=== PATIENT | male | born 1945 | race African-American/Black ===

== ENCOUNTER 2016-12-13 22:24 | Inpatient (IN) | payer MEDICARE, MEDICAID ==
[2016-12-13] MEDS ORDERED: NITROGLYCERIN/D5W 250 ML IV PRN (22:35)
[2016-12-13] MEDS ORDERED: FUROSEMIDE INJ/PF 40 MG/4 ML SDV IV ONE (22:36)
[2016-12-13] MEDS ORDERED: NITROGLYCERIN/D5W 50 MG/250 ML RTUINJ IV ONE (22:36)
--- NOTE | 2016-12-13 22:40 | ER Document Report ---
ED General - General Stated Complaint: ALTERED MENTAL STATUS Notes: Patient is a 71-year-old male who presents from a assisted with concerns of altered mental status. EMS states only that assisted contacted them for concerns the patient was not acting like his normal self. No additional history is provided. They state that they found his initial pulse oximetry reading to be 73% on room air. Patient does not normally require oxygen. Patient is nonverbal so no additional history can be obtained. TRAVEL OUTSIDE OF THE [place] IN LAST 30 DAYS: No - Related Data Allergies/Adverse Reactions: No Known Allergies Allergy (Verified 06/16/16 16:17) Past Medical History - General Information source: Patient Cannot obtain history due to: Dementia, Mentally challenged - Social History Smoking Status: Unknown if Ever Smoked Lives with: [facility] Family History: Reviewed & Not Pertinent - Past Medical History Cardiac Medical History: Reports: Hx Atrial Fibrillation, Hx Hypertension Denies: Hx Heart Attack Pulmonary Medical History: Reports: Hx Asthma, Hx COPD Denies: Hx Tuberculosis Neurological Medical History: Reports: Hx Cerebrovascular Accident - with left sided weakness. medications: Warfarin, Dilantin, Flomax, Hx Seizures Endocrine Medical History: Reports: Hx Diabetes Mellitus Type 2 Renal/ Medical History: Reports: Hx Benign Prostatic Hyperplasia GI Medical History: Denies: Hx Hepatitis, Hx Hiatal Hernia, Hx Ulcer Musculoskeltal Medical History: Reports Hx Arthritis, Reports Hx Musculoskeletal Deformity, Reports Hx Musculoskeletal Trauma Psychiatric Medical History: Denies: Hx Depression Infectious Medical History: Denies: Hx Hepatitis Past Surgical History: Reports: Hx Cholecystectomy, Hx Orthopedic Surgery - bilat Total Knee Replacement. Denies: Hx Open Heart Surgery, Hx Pacemaker - Immunizations Hx Diphtheria, Pertussis, Tetanus Vaccination: No Hx Pneumococcal Vaccination: 09/13/13 Review of Systems - Review of Systems -: Yes ROS unobtainable due to patient's medical condition Physical Exam - Vital signs Vitals: Resp 20 12/13/16 22:25 Interpretation: Hypertensive, Bradycardic, Hypoxic, Tachypneic Notes: PHYSICAL EXAMINATION: GENERAL: In moderate respiratory distress, somewhat lethargic HEAD: Atraumatic, normocephalic. EYES: Pupils equal round and reactive to light, extraocular movements intact, sclera anicteric, conjunctiva are normal. ENT: nares patent, oropharynx clear without exudates. Moderately dry mucous membranes. NECK: Normal range of motion, supple without lymphadenopathy LUNGS: Mild tachypnea with intercostal retractions. Scattered rales throughout. HEART: Regular bradycardia without murmurs ABDOMEN: Soft, nontender, normoactive bowel sounds. No guarding, no rebound. No masses appreciated. EXTREMITIES: Left-sided BKA. 3+ pitting edema in the right lower extremity NEUROLOGICAL: No focal neurological deficits. Moves all extremities spontaneously PSYCH: Does not talk SKIN: Warm, Dry, normal turgor, no rashes or lesions noted. Course - Re-evaluation Re-evalutation: 12/13/16 22:37 Patient presents with altered mental status, hypoxemia, in mild respiratory distress. He is nonverbal and history is as provided by EMS. At time of my assessment, patient has tachypnea with respiratory rate 25. Some mild intercostal retractions. Bedside ultrasound demonstrates B-lines in all lung fajardo using pulmonary ultrasound. A bedside cardiac echocardiogram demonstrates global myocardial wall hypertrophy and relatively diffuse dyskinesia but no effusion or tamponade. IVC is noted to be distended and without variance on respiration consistent with volume overload. Patient's blood pressure is notably elevated with his initial systolic blood pressure being 198. Presentation is overall most consistent with pulmonary edema with associated hypoxemia and altered mental status. Laboratories will be obtained, patient was placed on BiPAP to assist work of breathing and help reduce pulmonary edema. He hasn't started a nitroglycerin drip and IV Lasix 40 mg will be administered. Patient is critically ill at this time will require frequent reassessments. 12/14/16 00:25 Patient's work of breathing is overall much improved at this time on BiPAP. Continued to saturate 100% on 30% FiO2. Will transition off BiPAP at this time. Patient's blood pressures are controlled on 60 g of nitroglycerin per minute. Lasix has been given. Laboratory sent returned and show a markedly elevated potassium at 6.8. Patient did not have any EKG changes reflective of this change. A bolus of insulin and glucose will be given. Awaiting the remainder patient's laboratories. He will require admission. 12/14/16 02:53 Patient has been successfully transitioned to nasal cannula without difficulty. He has been admitted to Dr. Tapia - Vital Signs Vital signs: Temp Pulse Resp BP Pulse Ox 98.0 F 16 163/87 H 100 12/13/16 23:11 12/14/16 02:26 04/03/17 02:26 12/14/16 02:26 - Laboratory Result Diagrams: 12/13/16 23:04 12/13/16 23:04 Laboratory results interpreted by me: 12/13/16 12/13/16 12/13/16 23:04 23:04 23:04 RBC 2.94 L Hgb 9.4 L Hct 28.0 L RDW 14.6 H Sodium 145.2 H Potassium 6.8 H* Chloride 115 H Carbon Dioxide 20 L BUN 54 H Creatinine 2.17 H Est GFR ( Amer) 36 L Est GFR (Non-Af Amer) 30 L Glucose 116 H NT-Pro-B Natriuret Pep 4250 H Albumin 3.4 L Amylase Urine Protein Urine Blood Digoxin < 0.40 L 12/13/16 12/14/16 23:04 00:25 RBC Hgb Hct RDW Sodium Potassium Chloride Carbon Dioxide BUN Creatinine Est GFR ( Amer) Est GFR (Non-Af Amer) Glucose NT-Pro-B Natriuret Pep Albumin Amylase 235 H Urine Protein 100 H Urine Blood SMALL H Digoxin - Diagnostic Test Radiology reviewed: Image reviewed, Reports reviewed Radiology results interpreted by me: 12/13/16 23:55 Chest x-ray: Mild cardiomegaly and increased vascular prominence without overt pulmonary edema - EKG Interpretation by Me Additional EKG results interpreted by me: 12/13/16 23:55 Sinus bradycardia. Rate 57.Elevations or depressions. QTC is 390. Critical Care Note - Critical Care Note Total time excluding time spent on procedures (mins): 40 Comments: Critical care time spent obtaining history from patient or surrogate, discussions with consultants, development of treatment plan with patient or surrogate, evaluation of patient's response to treatment, examination of patient , ordering and performing treatments and interventions, ordering and review of laboratory studies, re-evaluation of patient's condition, ordering and review of radiographic studies and review of old charts Discharge - Discharge Clinical Impression: Hypoxemia, Respiratory distress, Hyperkalemia Altered mental status Qualifiers: Altered mental status type: disorientation Qualified Code(s): R41.0 - Disorientation, unspecified Disposition: ADMITTED INPATIENT Admitting Provider: [facility] Unit Admitted: [facility], [place]
[2016-12-13 23:35] LABS: ALANINE AMINOTRANSFERASE 42 U/L (21-72); ALBUMIN 3.4 g/dL (3.5-5.0); ALKALINE PHOSPHATASE 98 U/L (38-126); ANION GAP 10 (5-19); ASPARTATE AMINO TRANSFERASE 51 U/L (17-59); BILIRUBIN,DIRECT 0.2 mg/dL (0.0-0.4); BILIRUBIN,TOTAL 0.4 mg/dL (0.2-1.3); BLOOD UREA NITROGEN 54 mg/dL (7-20); CALCIUM 9.1 mg/dL (8.4-10.2); CARBON DIOXIDE 20 mmol/L (22-30); CHLORIDE 115 mmol/L (98-107); CREATININE RESULT 2.17 mg/dL (0.52-1.25); GLUCOSE 116 mg/dL (75-110); SODIUM 145.2 mmol/L (137-145); TOTAL PROTEIN 6.9 g/dL (6.3-8.2)
[2016-12-13 23:43] LABS: DIGOXIN < 0.40 ng/mL (0.8-2.0)
[2016-12-13 23:53] LABS: ABSOLUTE BASOPHILS # (AUTO) 0.1 10^3/uL (0.0-0.2); ABSOLUTE EOSINOPHILS # (AUTO) 0.2 10^3/uL (0.0-0.6); ABSOLUTE LYMPHOCYTES (AUTO) 2.6 10^3/uL (0.5-4.7); ABSOLUTE MONOCYTES (AUTO) 0.7 10^3/uL (0.1-1.4); BASOPHILS % (AUTO) 1.3 % (0-2); EOSINOPHILS % (AUTO) 2.4 % (0-6); HEMOGLOBIN 9.4 g/dL (13.5-17.0); HGB HCT DIFFERENCE 0.2; LYMPHOCYTES % (AUTO) 34.1 % (13-45); MEAN CORPUSCULAR HGB CONC 33.6 g/dL (32.0-36.0); MEAN CORPUSCULAR VOLUME 95 fl (80-97); MONOCYTES % (AUTO) 8.7 % (3-13); RED BLOOD COUNT 2.94 10^6/uL (4.35-5.55); RED CELL DISTRIBUTION WIDTH 14.6 % (11.5-14.0); SEGMENTED NEUTROPHILS % (AUTO) 53.5 % (42-78); WHITE BLOOD COUNT 7.5 10^3/uL (4.0-10.5)
[2016-12-13] MEDS ORDERED: IPRATROPIUM/ALBUTEROL 0.5-2.5 MG/3 ML AMPUL NEB ONE (23:56)
[2016-12-13 23:59] LABS: TROPONIN I 0.037 ng/mL
[2016-12-14] LABS: POTASSIUM 6.8 mmol/L (3.6-5.0)
[2016-12-14] MEDS ORDERED: DEXTROSE 50%-WATER 25 GM/50 ML DISP.SYRIN IV ONE ×2 (00:24→03:11)
[2016-12-14] MEDS ORDERED: INSULIN REG, HUMAN 100 UNIT/ML 3 ML VIAL (PYX) IV ONE (00:24)
[2016-12-14] MEDS ORDERED: LEVALBUTEROL HCL NEB 0.63 MG/3 ML AMPUL NEB PRN (00:43)
[2016-12-14] MEDS ORDERED: NORMAL SALINE 250 ML with FUROSEMIDE 250 MG IV PRN ×4 (00:48→20:26)
[2016-12-14 00:50] LABS: APPEARANCE,URINE CLEAR; BILIRUBIN,URINE NEGATIVE (NEGATIVE); GLUCOSE, URINE NEGATIVE (NEGATIVE); KETONES,URINE NEGATIVE (NEGATIVE); LEUKOCYTE ESTERASE,URINE NEGATIVE (NEGATIVE); NITRITE,URINE NEGATIVE (NEGATIVE); PROTEIN,URINE 100 mg/dL (NEGATIVE); URINE SPECIFIC GRAVITY 1.008; UROBILINOGEN,URINE NEGATIVE mg/dL (<2.0)
[2016-12-14] MEDS ORDERED: WARFARIN SODIUM 3 MG TABLET PO ONE (01:00)
[2016-12-14 01:37] LABS: VENOUS BLOOD BASE EXCESS -10.9 mmol/L; VENOUS BLOOD HCO3 16.4 mmol/L (20-32); VENOUS BLOOD PCO2 42.5 mmHg (35-63); VENOUS BLOOD PH 7.2 (7.30-7.42)
[2016-12-14 01:40] LABS: LIPASE 134.8 U/L (23-300); MAGNESIUM 2.2 mg/dL (1.6-2.3)
[2016-12-14 03:05] LABS: URINE BARBITURATES SCREEN NEGATIVE; URINE METHADONE SCREEN NEGATIVE; URINE OPIATES LOW NEGATIVE; URINE PHENCYCLIDINE SCREEN NEGATIVE
[2016-12-14] MEDS ORDERED: FUROSEMIDE INJ/PF 100 MG/10 ML SDV ONE ×2 (04:23→04:31)
[2016-12-14] MEDS ORDERED: WARFARIN SODIUM 3 MG TABLET ONE (04:53)
[2016-12-14] MEDS ORDERED: INFLUENZA ADLT QUAD (36MOS+) 2016-17 VAC 0.5 ML SYR IM PRN (06:39)
[2016-12-14 07:16] LABS: APPEARANCE,URINE CLEAR; BILIRUBIN,URINE NEGATIVE (NEGATIVE); GLUCOSE, URINE NEGATIVE (NEGATIVE); KETONES,URINE NEGATIVE (NEGATIVE); LEUKOCYTE ESTERASE,URINE NEGATIVE (NEGATIVE); NITRITE,URINE NEGATIVE (NEGATIVE); PROTEIN,URINE 100 mg/dL (NEGATIVE); URINE SPECIFIC GRAVITY 1.006; UROBILINOGEN,URINE NEGATIVE mg/dL (<2.0)
[2016-12-14 08:26] LABS: ABSOLUTE LYMPHOCYTES (AUTO) 1.7 10^3/uL (0.5-4.7); ABSOLUTE MONOCYTES (AUTO) 0.9 10^3/uL (0.1-1.4); ABSOLUTE NEUT (AUTO) 4.9 10^3/uL (1.7-8.2); BASOPHILS % (AUTO) 0.6 % (0-2); EOSINOPHILS % (AUTO) 0.2 % (0-6); HEMATOCRIT 26.5 % (37.9-51.0); HGB HCT DIFFERENCE 0.5; LYMPHOCYTES % (AUTO) 22.9 % (13-45); MEAN CORPUSCULAR HEMOGLOBIN 32.2 pg (27.0-33.4); MEAN CORPUSCULAR HGB CONC 34.1 g/dL (32.0-36.0); MEAN CORPUSCULAR VOLUME 95 fl (80-97); RED BLOOD COUNT 2.81 10^6/uL (4.35-5.55); RED CELL DISTRIBUTION WIDTH 14.6 % (11.5-14.0); SEGMENTED NEUTROPHILS % (AUTO) 64.3 % (42-78); WHITE BLOOD COUNT 7.6 10^3/uL (4.0-10.5)
[2016-12-14 08:41] LABS: ALANINE AMINOTRANSFERASE 44 U/L (21-72); ALBUMIN 3.1 g/dL (3.5-5.0); ALKALINE PHOSPHATASE 93 U/L (38-126); ANION GAP 10 (5-19); ASPARTATE AMINO TRANSFERASE 40 U/L (17-59); BILIRUBIN,DIRECT 0.1 mg/dL (0.0-0.4); BILIRUBIN,TOTAL 0.3 mg/dL (0.2-1.3); BLOOD UREA NITROGEN 47 mg/dL (7-20); CALCIUM 8.9 mg/dL (8.4-10.2); CARBON DIOXIDE 21 mmol/L (22-30); CHLORIDE 114 mmol/L (98-107); GLUCOSE 100 mg/dL (75-110); SODIUM 145.2 mmol/L (137-145); TOTAL PROTEIN 6.4 g/dL (6.3-8.2)
[2016-12-14 08:52] LABS: POTASSIUM 5.3 mmol/L (3.6-5.0)
--- NOTE | 2016-12-14 12:53 | EKG REPORT ---
SEVERITY:- ABNORMAL ECG - SINUS RHYTHM LOW VOLTAGE IN FRONTAL LEADS PROBABLE LVH WITH SECONDARY REPOL ABNRM ANTERIOR Q WAVES, POSSIBLY DUE TO LVH : Confirmed by: Michelle Ramos MD 14-Dec-2016 12:52:10
--- NOTE | 2016-12-14 19:08 | PDOC H&P ---
History of Present Illness Admission Date/PCP: 12/14/16 00:43 TOMY CROCKER MD History of Present Illness: GRAYSON BURCH is a 71 year old male, resident of the group home at [facility], the staff nurse at [facility] called me last night to indicate to me that patient was not responding to any stimuli including sternal rub, I was concerned about intracranial hemorrhage because patient is on warfarin because of history of atrial fibrillation I advised that patient should be transfer to the emergency room for evaluation when EMS arrived in the group home the pulse oximetry reading was 73% When he arrived in the emergency room he was lethargic and also in respiratory distress.He was also found to be nonverbal.The blood pressure recorded in the emergency room was 163/ 87, it was felt that patient was in pulmonary edema the breathing was supported with BiPAP machine,the blood work that was done showed sodium 145.2, potassium 6.8, creatinine 2.17 BUN of 54 and the BNP was 4250. CT head was done without contrast and it showed no midline shift areas of low density in the periventricular white matter most likely due to chronic microvascular ischemic change that was also a large area of encephalomalacia in the right MCA territory most consistent with a remote infarct there was no intracranial hemorrhage. Patient was stabilized in the emergency room. Patient presentation is consistent with flash pulmonary edema due to acute diastolic heart failure and he be treated with intravenous furosemide infusion to reduce preload. MRI brain was ordered to rule out any acute ischemic stroke. Past Medical History Cardiac Medical History: Reports: Atrial Fibrillation, Hypertension, Peripheral Vascular Disease Pulmonary Medical History: Reports: Asthma, Chronic Obstructive Pulmonary Disease (COPD) Neurological Medical History: Reports: Ischemic CVA - History of large right MCA territory infarct, Seizures Endocrine Medical History: Reports: Diabetes Mellitus Type 2 Musculoskeltal Medical History: Reports: Arthritis Psychiatric Medical History: Denies: Depression Hematology: Reports: Anemia Denies: Sickle Cell Disease Past Surgical History Past Surgical History: Reports: Cholecystectomy, Orthopedic Surgery - bilat Total Knee Replacement, left AKA Social History Lives with: [facility] Smoking Status: Former Smoker Frequency of Alcohol Use: None Hx Recreational Drug Use: No Drugs: None Hx Prescription Drug Abuse: No Family History Family History: Reviewed & Not Pertinent Parental Family History Reviewed: Yes Children Family History Reviewed: Yes Sibling(s) Family History Reviewed.: Yes Medication/Allergy Home Medications: Atorvastatin Calcium [Lipitor 20 mg Tablet] 20 mg PO QHS 12/14/16 Digoxin [Lanoxin 0.125 mg Tablet] 0.125 mg PO DAILY 12/14/16 Diltiazem HCl [Cardizem] 120 mg PO Q12 12/14/16 Docusate Sodium [Colace 100 mg Capsule] 100 mg PO DAILY 12/14/16 Finasteride [Proscar 5 mg Tablet] 5 mg PO DAILY 12/14/16 Metoprolol Tartrate [Lopressor 100 mg Tablet] 100 mg PO Q12 12/14/16 Phenytoin [Dilantin] 100 mg PO Q8 12/14/16 Polyethylene Glycol 3350 [Miralax Powder 17 gm/Packet] 1 packet PO DAILY Ranolazine [Ranexa] 500 mg PO Q12 12/14/16 Sennosides/Docusate 8.6-50 mg [Senna Plus Tablet] 2 tab PO DAILY 12/14/16 Warfarin Sodium [Coumadin 3 mg Tablet] 3 mg PO QHS 12/14/16 Allergies/Adverse Reactions: No Known Allergies Allergy (Verified 06/16/16 16:17) Review of Systems ROS unobtainable: Due to mental status Physical Exam Vital Signs: Temp Pulse Resp BP Pulse Ox 98.8 F 78 20 168/80 H 100 12/14/16 15:51 12/14/16 18:09 12/14/16 16:00 12/14/16 18:09 12/14/16 16:00 Intake & Output 12/13/16 12/14/16 12/15/16 06:59 06:59 06:59 Intake Total 187 Output Total 600 900 Balance -600 -713 Weight 63.8 kg General appearance: PRESENT: severe distress Eye exam: PRESENT: PERRLA Respiratory exam: PRESENT: decreased breath sounds Cardiovascular exam: PRESENT: +S1, +S2 GI/Abdominal exam: PRESENT: soft Extremities exam: PRESENT: left AKA Neurological exam: PRESENT: alert Results Laboratory Results: 12/14/16 08:13 12/14/16 08:13 12/14/16 12/14/16 12/14/16 01:15 01:30 06:28 WBC RBC Hgb Hct MCV MCH MCHC RDW Plt Count Seg Neutrophils % Lymphocytes % Monocytes % Eosinophils % Basophils % Absolute Neutrophils Absolute Lymphocytes Absolute Monocytes Absolute Eosinophils Absolute Basophils VBG pH 7.20 L VBG pCO2 42.5 VBG HCO3 16.4 L VBG Base Excess -10.9 Sodium Potassium Chloride Carbon Dioxide Anion Gap BUN Creatinine Est GFR ( Amer) Est GFR (Non-Af Amer) Glucose Calcium Total Bilirubin AST ALT Alkaline Phosphatase Ammonia < 8.7 L Total Protein Albumin Urine Color STRAW Urine Appearance CLEAR Urine pH 5.0 Ur Specific Colp 1.006 Urine Protein 100 H Urine Glucose (UA) NEGATIVE Urine Ketones NEGATIVE Urine Blood SMALL H Urine Nitrite NEGATIVE Ur Leukocyte Esterase NEGATIVE Urine WBC (Auto) 0 Urine RBC (Auto) 2 12/14/16 12/14/16 08:13 08:13 WBC 7.6 RBC 2.81 L Hgb 9.0 L Hct 26.5 L MCV 95 MCH 32.2 MCHC 34.1 RDW 14.6 H Plt Count 202 Seg Neutrophils % 64.3 Lymphocytes % 22.9 Monocytes % 12.0 Eosinophils % 0.2 Basophils % 0.6 Absolute Neutrophils 4.9 Absolute Lymphocytes 1.7 Absolute Monocytes 0.9 Absolute Eosinophils 0.0 Absolute Basophils 0.0 VBG pH VBG pCO2 VBG HCO3 VBG Base Excess Sodium 145.2 H Potassium 5.3 H D Chloride 114 H Carbon Dioxide 21 L Anion Gap 10 BUN 47 H Creatinine 2.00 H Est GFR ( Amer) 40 L Est GFR (Non-Af Amer) 33 L Glucose 100 Calcium 8.9 Total Bilirubin 0.3 AST 40 ALT 44 Alkaline Phosphatase 93 Ammonia Total Protein 6.4 Albumin 3.1 L Urine Color Urine Appearance Urine pH Ur Specific Colp Urine Protein Urine Glucose (UA) Urine Ketones Urine Blood Urine Nitrite Ur Leukocyte Esterase Urine WBC (Auto) Urine RBC (Auto) 12/14/16 12/14/16 12/14/16 01:15 01:15 08:13 Creatine Kinase 92 94 Troponin I 0.036 12/14/16 12/14/16 12/14/16 08:13 14:30 14:30 Creatine Kinase 95 Troponin I 0.048 0.043 Impressions: Chest X-Ray 12/13/16 22:34 IMPRESSION: NO ACUTE RADIOGRAPHIC FINDING IN THE CHEST. Head CT 12/14/16 00:00 IMPRESSION: Motion artifact. No obvious acute intracranial hemorrhage or acute territorial infarct. Remote right MCA infarct. Chronic changes of atrophy and microvascular ischemia. Assessment & Plan - Diagnosis (1) Acute hypoxemic respiratory failure Is this a current diagnosis for this admission?: YesPlan: Patient probably of flash pulmonary edema due to acute diastolic heart failure, he was treated with furosemide in the emergency room on will continue furosemide infusion, 2D echo showed grade 2 diastolic dysfunction of left ventricle (2) Hyperkalemia Is this a current diagnosis for this admission?: Yes (3) History of CVA (cerebrovascular accident) Is this a current diagnosis for this admission?: Yes (4) Respiratory distress Is this a current diagnosis for this admission?: Yes (5) Seizure disorder Is this a current diagnosis for this admission?: Yes (6) BPH (benign prostatic hyperplasia) Is this a current diagnosis for this admission?: Yes (7) COPD (chronic obstructive pulmonary disease) Qualifiers: COPD type: unspecified COPD Qualified Code(s): J44.9 - Chronic obstructive pulmonary disease, unspecified Is this a current diagnosis for this admission?: Yes (8) Acute diastolic heart failure Is this a current diagnosis for this admission?: YesPlan: He presented with congestive heart failure with preserved ejection fraction of left ventricle, this is consistent with diastolic dysfunction of left ventricle , he be treated with intravenous furosemide infusion (9) Acute kidney injury Is this a current diagnosis for this admission?: YesPlan: Patient of acute kidney injury with associated hyperkalemia
[2016-12-14] MEDS: PHARMACY COMMUNICATION ORDER MC SCH (20:38)
--- NOTE | 2016-12-14 21:26 | XCELERA REPORT ---
[address] [address] Transthoracic Echocardiogram Report Name: GRAYSON BURCH Age: 71 yrs Gender: Male : 1945 Patient Status: Inpatient Patient Location: 3W\S\320\S\A Study Date: 12/14/2016 09:51 AM Height: 69 in Weight: 139 lb BSA: 1.8 m2 Procedure: A complete two-dimensional transthoracic echocardiogram was performed (2D, M-mode, spectral and color flow Doppler). The study was technically difficult with many images being suboptimal in quality. Reason For Study: chf Ordering Physician: TOMY CROCKER Performed By: Emma Valdivia Interpretation Summary The left ventricular ejection fraction is normal. Doppler measurements suggest pseudonormalized left ventricular relaxation, which is associated with grade II/IV or mild to moderate diastolic dysfunction There is mild concentric left ventricular hypertrophy. The left ventricle is grossly normal size. Wall motion cannot be accurately commented on, but no definite regional wall motion abnormalities noted. The right ventricular systolic function is normal. The left atrial size is normal. The right atrium is normal in size There is a trace amount of mitral regurgitation There is no mitral valve stenosis. There is a trace amount of aortic regurgitation There is no aortic valve stenosis There is a trace to mild amount of tricuspid regurgitation There is mild pulmonary hypertension by echo Right ventricular systolic pressure is estimated to be elevated at 30- 40mmHg. The aortic root is not well visualized but is probably normal size. The inferior vena cava was not well visualized There is no pericardial effusion. MMode/2D Measurements \T\ Calculations RVDd: 2.2 cm LVIDd: 5.0 cm FS: 37.6 % Ao root diam: 3.2 cm IVSd: 1.1 cm LVIDs: 3.1 cm EDV(Teich): 117.0 ml LVPWd: 1.1 cm ESV(Teich): 38.1 ml Ao root area: 8.1 cm2 EF(Teich): 67.4 % LA dimension: 3.5 cm Doppler Measurements \T\ Calculations MV E max octavio: MV P1/2t max octavio: Ao V2 max: LV V1 max P.2 cm/sec 60.7 cm/sec 171.7 cm/sec 5.0 mmHg MV A max octavio: MV P1/2t: 91.2 msec Ao max PG: LV V1 max: 70.1 cm/sec 11.8 mmHg 112.0 cm/sec MV E/A: 0.87 MVA(P1/2t): 2.4 cm2 MV dec slope: 195.0 cm/sec2 MV dec time: 0.31 sec PA V2 max: TR max octavio: 122.4 cm/sec 279.2 cm/sec PA max PG: TR max P.2 mmHg 6.0 mmHg Left Ventricle The left ventricle is grossly normal size. There is mild concentric left ventricular hypertrophy. The left ventricular ejection fraction is normal. Doppler measurements suggest pseudonormalized left ventricular relaxation, which is associated with grade II/IV or mild to moderate diastolic dysfunction. Wall motion cannot be accurately commented on, but no definite regional wall motion abnormalities noted. Right Ventricle The right ventricle is grossly normal size. There is normal right ventricular wall thickness. The right ventricular systolic function is normal. Atria The right atrium is normal in size. The left atrial size is normal. Interarterial septum not well visualized and not well dopplered. Cannot comment on ASD/PFO presence. Mitral Valve The mitral valve leaflets are sclerotic, but show no functional abnormalities. There is no mitral valve stenosis. There is a trace amount of mitral regurgitation. Aortic Valve The aortic valve is grossly normal. There is no aortic valve stenosis. There is a trace amount of aortic regurgitation. Tricuspid Valve The tricuspid valve is not well visualized, but is grossly normal. There is no tricuspid stenosis. There is a trace to mild amount of tricuspid regurgitation. There is mild pulmonary hypertension by echo. Right ventricular systolic pressure is estimated to be elevated at 30-40mmHg. Pulmonic Valve The pulmonic valve is not well visualized. Great Vessels The aortic root is not well visualized but is probably normal size. The inferior vena cava was not well visualized. Effusions There is no pericardial effusion. : TOMY CROCKER > Brian Rodriguez
[2016-12-14] MEDS: WARFARIN SODIUM 3 MG TABLET PO SCH (21:29)
[2016-12-15 04:05] LABS: ABSOLUTE BASOPHILS # (AUTO) 0.1 10^3/uL (0.0-0.2); ABSOLUTE EOSINOPHILS # (AUTO) 0.1 10^3/uL (0.0-0.6); ABSOLUTE MONOCYTES (AUTO) 0.8 10^3/uL (0.1-1.4); ABSOLUTE NEUT (AUTO) 4.3 10^3/uL (1.7-8.2); BASOPHILS % (AUTO) 0.7 % (0-2); EOSINOPHILS % (AUTO) 1.2 % (0-6); HEMOGLOBIN 9.5 g/dL (13.5-17.0); HGB HCT DIFFERENCE 0.5; LYMPHOCYTES % (AUTO) 27.3 % (13-45); MEAN CORPUSCULAR HEMOGLOBIN 31.8 pg (27.0-33.4); MEAN CORPUSCULAR HGB CONC 33.9 g/dL (32.0-36.0); MEAN CORPUSCULAR VOLUME 94 fl (80-97); MONOCYTES % (AUTO) 11.7 % (3-13); RED BLOOD COUNT 2.99 10^6/uL (4.35-5.55); SEGMENTED NEUTROPHILS % (AUTO) 59.1 % (42-78); WHITE BLOOD COUNT 7.2 10^3/uL (4.0-10.5)
[2016-12-15 04:08] LABS: PROTHROMBIN TIME 16.4 SEC (11.4-15.4)
[2016-12-15 04:15] LABS: ANION GAP 11 (5-19); BLOOD UREA NITROGEN 48 mg/dL (7-20); CARBON DIOXIDE 22 mmol/L (22-30); CHLORIDE 113 mmol/L (98-107); CHOLESTEROL 178.46 mg/dL (0-200); CREATININE RESULT 1.87 mg/dL (0.52-1.25); Direct HDL 57 mg/dL (>40); GLUCOSE 96 mg/dL (75-110); POTASSIUM 5.3 mmol/L (3.6-5.0); SODIUM 145.7 mmol/L (137-145); TRIGLYCERIDES 82 mg/dL (<150)
[2016-12-15 04:26] LABS: CREATINE KINASE MB 2.26 ng/mL (<4.55); DIRECT LDL 65 mg/dL (<100); TROPONIN I 0.056 ng/mL
[2016-12-15 10:28] LABS: CREATINE KINASE MB 2.45 ng/mL (<4.55); TROPONIN I 0.058 ng/mL
--- NOTE | 2016-12-15 13:13 | EKG REPORT ---
SEVERITY:- ABNORMAL ECG - ATRIAL FLUTTER/FIBRILLATION, A-RATE 231 LOW VOLTAGE IN FRONTAL LEADS CONSIDER ANTEROSEPTAL INFARCT NONSPECIFIC T ABNORMALITIES, LATERAL LEADS : Confirmed by: Michelle Ramos MD 15-Dec-2016 13:12:43
[2016-12-15] MEDS ORDERED: PHENYTOIN SODIUM EXTENDED 100 MG CAPSULE PO ONE (14:30)
[2016-12-15] MEDS ORDERED: METOPROLOL TARTRATE 100 MG TABLET PO ONE (14:30)
[2016-12-15] MEDS ORDERED: DILTIAZEM HCL 120 MG CAP.SR.24H PO ONE (14:30)
[2016-12-15] MEDS ORDERED: DIGOXIN 0.125 MG TABLET PO ONE (14:30)
[2016-12-15] MEDS: PHENYTOIN SODIUM EXTENDED 100 MG CAPSULE PO SCH ×2 (14:35→21:31)
[2016-12-15 16:26] LABS: CREATINE KINASE MB 2.34 ng/mL (<4.55); TROPONIN I 0.049 ng/mL
[2016-12-15] MEDS: PHARMACY COMMUNICATION ORDER MC SCH (20:05)
--- NOTE | 2016-12-15 20:05 | PDOC PROGRESS REPORT ---
Subjective Progress Note for:: 12/15/16 Subjective:: Patient was seen by the bedside, is more awake alert and responsive Physical Exam Vital Signs: Temp Pulse Resp BP Pulse Ox 99.1 F 96 20 131/69 H 100 12/15/16 15:31 12/15/16 15:31 12/15/16 15:31 12/15/16 15:31 12/15/16 15:31 Intake & Output 12/14/16 12/15/16 12/16/16 06:59 06:59 06:59 Intake Total 561 367 Output Total 600 9321 600 Balance -600 -1814 -233 Weight 63.8 kg 74.8 kg General appearance: PRESENT: no acute distress Eye exam: PRESENT: PERRLA Respiratory exam: PRESENT: clear to auscultation kimberly Cardiovascular exam: PRESENT: +S1, +S2 GI/Abdominal exam: PRESENT: soft Neurological exam: PRESENT: alert Results Laboratory Results: 12/15/16 03:56 12/15/16 03:56 12/15/16 12/15/16 03:56 03:56 WBC 7.2 RBC 2.99 L Hgb 9.5 L Hct 28.0 L MCV 94 MCH 31.8 MCHC 33.9 RDW 14.0 Plt Count 203 Seg Neutrophils % 59.1 Lymphocytes % 27.3 Monocytes % 11.7 Eosinophils % 1.2 Basophils % 0.7 Absolute Neutrophils 4.3 Absolute Lymphocytes 2.0 Absolute Monocytes 0.8 Absolute Eosinophils 0.1 Absolute Basophils 0.1 Sodium 145.7 H Potassium 5.3 H Chloride 113 H Carbon Dioxide 22 Anion Gap 11 BUN 48 H Creatinine 1.87 H Est GFR ( Amer) 43 L Est GFR (Non-Af Amer) 36 L Glucose 96 Calcium 9.0 Triglycerides 82 Cholesterol 178.46 LDL Cholesterol Direct 65 VLDL Cholesterol 16.0 HDL Cholesterol 57 12/14/16 07:02 Nasophary (Mrsa Only) MRSA Surveillance Culture - Final NO MRSA RECOVERED 12/14/16 12/14/16 12/14/16 01:15 01:15 08:13 Creatine Kinase 92 94 CK-MB (CK-2) Troponin I 0.036 12/14/16 12/14/16 12/14/16 08:13 14:30 14:30 Creatine Kinase 95 CK-MB (CK-2) Troponin I 0.048 0.043 12/15/16 12/15/16 12/15/16 03:56 03:56 09:48 Creatine Kinase 101 104 CK-MB (CK-2) 2.26 Troponin I 0.056 12/15/16 12/15/16 12/15/16 09:48 15:45 15:45 Creatine Kinase 121 CK-MB (CK-2) 2.45 2.34 Troponin I 0.058 0.049 Impressions: Chest X-Ray 12/13/16 22:34 IMPRESSION: NO ACUTE RADIOGRAPHIC FINDING IN THE CHEST. Head CT 12/14/16 00:00 IMPRESSION: Motion artifact. No obvious acute intracranial hemorrhage or acute territorial infarct. Remote right MCA infarct. Chronic changes of atrophy and microvascular ischemia. Head MRI 12/14/16 00:00 IMPRESSION: Negative for acute or sub-acute infarction. Old right frontal infarct. Moderate chronic small vessel ischemic changes. . Renal Ultrasound 12/14/16 00:00 IMPRESSION: CHRONIC MEDICAL RENAL DISEASE. NO HYDRONEPHROSIS. Assessment & Plan - Diagnosis (1) Acute hypoxemic respiratory failure Is this a current diagnosis for this admission?: Yes (2) Hyperkalemia Is this a current diagnosis for this admission?: Yes (3) History of CVA (cerebrovascular accident) Is this a current diagnosis for this admission?: Yes (4) Respiratory distress Is this a current diagnosis for this admission?: Yes (5) Seizure disorder Is this a current diagnosis for this admission?: Yes (6) BPH (benign prostatic hyperplasia) Is this a current diagnosis for this admission?: Yes (7) COPD (chronic obstructive pulmonary disease) Qualifiers: COPD type: unspecified COPD Qualified Code(s): J44.9 - Chronic obstructive pulmonary disease, unspecified Is this a current diagnosis for this admission?: Yes (8) Acute diastolic heart failure Is this a current diagnosis for this admission?: Yes (9) Acute kidney injury Is this a current diagnosis for this admission?: Yes
[2016-12-15] MEDS: DILTIAZEM HCL 120 MG CAP.SR.24H PO SCH (21:31)
[2016-12-15] MEDS: WARFARIN SODIUM 3 MG TABLET PO SCH (21:31)
[2016-12-15] MEDS: METOPROLOL TARTRATE 100 MG TABLET PO SCH (21:31)
[2016-12-16 05:06] LABS: ABSOLUTE BASOPHILS # (AUTO) 0.1 10^3/uL (0.0-0.2); ABSOLUTE EOSINOPHILS # (AUTO) 0.1 10^3/uL (0.0-0.6); ABSOLUTE LYMPHOCYTES (AUTO) 3.3 10^3/uL (0.5-4.7); ABSOLUTE MONOCYTES (AUTO) 1.1 10^3/uL (0.1-1.4); BASOPHILS % (AUTO) 0.9 % (0-2); HEMATOCRIT 30.4 % (37.9-51.0); HEMOGLOBIN 10.2 g/dL (13.5-17.0); HGB HCT DIFFERENCE 0.2; LYMPHOCYTES % (AUTO) 38.1 % (13-45); MEAN CORPUSCULAR HEMOGLOBIN 31.7 pg (27.0-33.4); MEAN CORPUSCULAR HGB CONC 33.7 g/dL (32.0-36.0); MEAN CORPUSCULAR VOLUME 94 fl (80-97); MONOCYTES % (AUTO) 13.2 % (3-13); RED BLOOD COUNT 3.23 10^6/uL (4.35-5.55); RED CELL DISTRIBUTION WIDTH 14.1 % (11.5-14.0); SEGMENTED NEUTROPHILS % (AUTO) 46.8 % (42-78); WHITE BLOOD COUNT 8.6 10^3/uL (4.0-10.5)
[2016-12-16 05:12] LABS: PROTHROMBIN TIME 18.8 SEC (11.4-15.4)
[2016-12-16 05:29] LABS: ANION GAP 13 (5-19); BLOOD UREA NITROGEN 59 mg/dL (7-20); CARBON DIOXIDE 19 mmol/L (22-30); CHLORIDE 113 mmol/L (98-107); CREATININE RESULT 2.08 mg/dL (0.52-1.25); GLUCOSE 92 mg/dL (75-110); POTASSIUM 5.9 mmol/L (3.6-5.0); SODIUM 144.5 mmol/L (137-145)
[2016-12-16] MEDS: PHENYTOIN SODIUM EXTENDED 100 MG CAPSULE PO SCH ×3 (05:36→21:31)
[2016-12-16 08:45] LABS: APPEARANCE,URINE SLIGHTLY-CLOUDY; BILIRUBIN,URINE NEGATIVE (NEGATIVE); GLUCOSE, URINE NEGATIVE (NEGATIVE); KETONES,URINE NEGATIVE (NEGATIVE); LEUKOCYTE ESTERASE,URINE MODERATE (NEGATIVE); NITRITE,URINE NEGATIVE (NEGATIVE); PROTEIN,URINE 100 mg/dL (NEGATIVE); URINE SPECIFIC GRAVITY 1.012; UROBILINOGEN,URINE NEGATIVE mg/dL (<2.0)
[2016-12-16] MEDS: DIGOXIN 0.125 MG TABLET PO SCH (11:02)
[2016-12-16] MEDS: METOPROLOL TARTRATE 100 MG TABLET PO SCH ×2 (11:03→21:31)
[2016-12-16] MEDS: DILTIAZEM HCL 120 MG CAP.SR.24H PO SCH ×2 (11:05→21:31)
--- NOTE | 2016-12-16 17:36 | PDOC PROGRESS REPORT ---
Subjective Progress Note for:: 12/16/16 Subjective:: The potassium is high today, Kayexalate is prescribed for patient, he is doing well otherwise Physical Exam Vital Signs: Temp Pulse Resp BP Pulse Ox 98.8 F 33 L 16 108/64 100 12/16/16 15:38 12/16/16 15:38 12/16/16 15:38 12/16/16 15:38 12/16/16 15:38 Intake & Output 12/15/16 12/16/16 12/17/16 06:59 06:59 06:59 Intake Total 561 885 24 Output Total 2375 1200 Balance -6885 -846 24 Weight 74.8 kg 62 kg General appearance: PRESENT: no acute distress Eye exam: PRESENT: PERRLA Respiratory exam: PRESENT: clear to auscultation kimberly Cardiovascular exam: PRESENT: +S1, +S2 Neurological exam: PRESENT: alert Results Laboratory Results: 12/16/16 04:40 12/16/16 04:40 12/16/16 12/16/16 12/16/16 04:40 04:40 06:27 WBC 8.6 RBC 3.23 L Hgb 10.2 L Hct 30.4 L MCV 94 MCH 31.7 MCHC 33.7 RDW 14.1 H Plt Count 222 Seg Neutrophils % 46.8 Lymphocytes % 38.1 Monocytes % 13.2 H Eosinophils % 1.0 Basophils % 0.9 Absolute Neutrophils 4.0 Absolute Lymphocytes 3.3 Absolute Monocytes 1.1 Absolute Eosinophils 0.1 Absolute Basophils 0.1 Sodium 144.5 Potassium 5.9 H Chloride 113 H Carbon Dioxide 19 L Anion Gap 13 BUN 59 H Creatinine 2.08 H Est GFR ( Amer) 38 L Est GFR (Non-Af Amer) 31 L Glucose 92 Calcium 9.0 Urine Color YELLOW Urine Appearance SLIGHTLY-CLOUDY Urine pH 6.0 Ur Specific [place] 1.012 Urine Protein 100 H Urine Glucose (UA) NEGATIVE Urine Ketones NEGATIVE Urine Blood MODERATE H Urine Nitrite NEGATIVE Ur Leukocyte Esterase MODERATE H Urine WBC (Auto) 30 Urine RBC (Auto) 14 12/14/16 12/14/16 12/14/16 01:15 01:15 08:13 Creatine Kinase 92 94 CK-MB (CK-2) Troponin I 0.036 12/14/16 12/14/16 12/14/16 08:13 14:30 14:30 Creatine Kinase 95 CK-MB (CK-2) Troponin I 0.048 0.043 12/15/16 12/15/16 12/15/16 03:56 03:56 09:48 Creatine Kinase 101 104 CK-MB (CK-2) 2.26 Troponin I 0.056 12/15/16 12/15/16 12/15/16 09:48 15:45 15:45 Creatine Kinase 121 CK-MB (CK-2) 2.45 2.34 Troponin I 0.058 0.049 Impressions: Chest X-Ray 12/13/16 22:34 IMPRESSION: NO ACUTE RADIOGRAPHIC FINDING IN THE CHEST. Head CT 12/14/16 00:00 IMPRESSION: Motion artifact. No obvious acute intracranial hemorrhage or acute territorial infarct. Remote right MCA infarct. Chronic changes of atrophy and microvascular ischemia. Head MRI 12/14/16 00:00 IMPRESSION: Negative for acute or sub-acute infarction. Old right frontal infarct. Moderate chronic small vessel ischemic changes. . Renal Ultrasound 12/14/16 00:00 IMPRESSION: CHRONIC MEDICAL RENAL DISEASE. NO HYDRONEPHROSIS. Assessment & Plan - Diagnosis (1) Acute hypoxemic respiratory failure Is this a current diagnosis for this admission?: Yes (2) Hyperkalemia Is this a current diagnosis for this admission?: Yes (3) History of CVA (cerebrovascular accident) Is this a current diagnosis for this admission?: Yes (4) Respiratory distress Is this a current diagnosis for this admission?: Yes (5) Seizure disorder Is this a current diagnosis for this admission?: Yes (6) BPH (benign prostatic hyperplasia) Is this a current diagnosis for this admission?: Yes (7) COPD (chronic obstructive pulmonary disease) Qualifiers: COPD type: unspecified COPD Qualified Code(s): J44.9 - Chronic obstructive pulmonary disease, unspecified Is this a current diagnosis for this admission?: Yes (8) Acute diastolic heart failure Is this a current diagnosis for this admission?: Yes (9) Acute kidney injury Is this a current diagnosis for this admission?: Yes
[2016-12-16] MEDS: SODIUM POLYSTYRENE SULFONATE 15 GM/60 ML PO SCH ×2 (17:40→23:52)
[2016-12-16] MEDS: PHARMACY COMMUNICATION ORDER MC SCH (17:41)
[2016-12-16] MEDS: WARFARIN SODIUM 3 MG TABLET PO SCH (21:31)
[2016-12-17 05:17] LABS: ABSOLUTE EOSINOPHILS # (AUTO) 0.1 10^3/uL (0.0-0.6); ABSOLUTE LYMPHOCYTES (AUTO) 2.9 10^3/uL (0.5-4.7); ABSOLUTE NEUT (AUTO) 4.5 10^3/uL (1.7-8.2); BASOPHILS % (AUTO) 0.6 % (0-2); EOSINOPHILS % (AUTO) 1.2 % (0-6); HEMATOCRIT 31.6 % (37.9-51.0); HEMOGLOBIN 10.7 g/dL (13.5-17.0); HGB HCT DIFFERENCE 0.5; LYMPHOCYTES % (AUTO) 33.3 % (13-45); MEAN CORPUSCULAR HEMOGLOBIN 31.9 pg (27.0-33.4); MEAN CORPUSCULAR HGB CONC 33.7 g/dL (32.0-36.0); MEAN CORPUSCULAR VOLUME 95 fl (80-97); MONOCYTES % (AUTO) 12.2 % (3-13); RED BLOOD COUNT 3.34 10^6/uL (4.35-5.55); RED CELL DISTRIBUTION WIDTH 14.2 % (11.5-14.0); SEGMENTED NEUTROPHILS % (AUTO) 52.7 % (42-78); WHITE BLOOD COUNT 8.6 10^3/uL (4.0-10.5)
[2016-12-17 05:22] LABS: PROTHROMBIN TIME 17.8 SEC (11.4-15.4)
[2016-12-17] MEDS: PHENYTOIN SODIUM EXTENDED 100 MG CAPSULE PO SCH ×2 (05:31→14:29)
[2016-12-17] MEDS: SODIUM POLYSTYRENE SULFONATE 15 GM/60 ML PO SCH ×2 (05:31→11:36)
[2016-12-17 05:46] LABS: ANION GAP 15 (5-19); BLOOD UREA NITROGEN 68 mg/dL (7-20); CALCIUM 8.9 mg/dL (8.4-10.2); CARBON DIOXIDE 19 mmol/L (22-30); CHLORIDE 112 mmol/L (98-107); CREATININE RESULT 2.14 mg/dL (0.52-1.25); GLUCOSE 122 mg/dL (75-110); POTASSIUM 4.9 mmol/L (3.6-5.0); SODIUM 146.3 mmol/L (137-145)
[2016-12-17] MEDS: DIGOXIN 0.125 MG TABLET PO SCH (09:35)
[2016-12-17] MEDS: DILTIAZEM HCL 120 MG CAP.SR.24H PO SCH (09:36)
[2016-12-17] MEDS: ACETAMINOPHEN 325 MG TABLET PO PRN ×2 (09:36→20:05)
[2016-12-17] MEDS: METOPROLOL TARTRATE 100 MG TABLET PO SCH (09:37)
--- NOTE | 2016-12-17 17:00 | PDOC TRANSFER SUMMARY ---
General - Admit/Disc Date/PCP Admission Date/Primary Care Provider: 12/14/16 00:43 TOMY CROCKER MD Discharge Date: 12/17/16 - Discharge Diagnosis (1) Acute hypoxemic respiratory failure Is this a current diagnosis for this admission?: Yes (2) Hyperkalemia Is this a current diagnosis for this admission?: Yes (3) History of CVA (cerebrovascular accident) Is this a current diagnosis for this admission?: Yes (4) Respiratory distress Is this a current diagnosis for this admission?: Yes (5) Seizure disorder Is this a current diagnosis for this admission?: Yes (6) BPH (benign prostatic hyperplasia) Is this a current diagnosis for this admission?: Yes (7) COPD (chronic obstructive pulmonary disease) Is this a current diagnosis for this admission?: Yes (8) Acute diastolic heart failure Is this a current diagnosis for this admission?: Yes (9) Acute kidney injury Is this a current diagnosis for this admission?: Yes - Additional Information Home Medications: Atorvastatin Calcium [Lipitor 20 mg Tablet] 20 mg PO QHS 12/14/16 Diltiazem HCl [Cardizem] 120 mg PO Q12 12/14/16 Docusate Sodium [Colace 100 mg Capsule] 100 mg PO DAILY 12/14/16 Finasteride [Proscar 5 mg Tablet] 5 mg PO DAILY 12/14/16 Phenytoin [Dilantin] 100 mg PO Q8 12/14/16 Polyethylene Glycol 3350 [Miralax Powder 17 gm/Packet] 1 packet PO DAILY Ranolazine [Ranexa] 500 mg PO Q12 12/14/16 Sennosides/Docusate 8.6-50 mg [Senna Plus Tablet] 2 tab PO DAILY 12/14/16 Acetaminophen [Tylenol 325 mg Tablet] 650 mg PO Q4HP PRN #0 tablet 12/17/16 Apixaban [Eliquis 2.5 mg Tablet] 2.5 mg PO Q12 #0 tablet 12/17/16 Diltiazem HCl [Cardizem Cd 120 mg Capsule] 120 mg PO Q12 #0 cap.sr.24h 12/17/16 Levalbuterol HCl [Xopenex Neb 0.63 mg/3 ml Ampul] 0.63 mg NEB RTQ4HP PRN #0 vial.neb 12/17/16 Phenytoin Sodium Extended [Dilantin 100 mg Capsule.er] 100 mg PO Q8 #0 capsule 12/17/16 History of Present Illness Admission Date/PCP: 12/14/16 00:43 TOMY CROCKER MD History of Present Illness: GRAYSON BURCH is a 71 year old male, resident of the half-way at [facility], the staff nurse at [facility] called me last night to indicate to me that patient was not responding to any stimuli including sternal rub, I was concerned about intracranial hemorrhage because patient is on warfarin because of history of atrial fibrillation I advised that patient should be transfer to the emergency room for evaluation when EMS arrived in the half-way the pulse oximetry reading was 73% When he arrived in the emergency room he was lethargic and also in respiratory distress.He was also found to be nonverbal.The blood pressure recorded in the emergency room was 163/ 87, it was felt that patient was in pulmonary edema the breathing was supported with BiPAP machine,the blood work that was done showed sodium 145.2, potassium 6.8, creatinine 2.17 BUN of 54 and the BNP was 4250. CT head was done without contrast and it showed no midline shift areas of low density in the periventricular white matter most likely due to chronic microvascular ischemic change that was also a large area of encephalomalacia in the right MCA territory most consistent with a remote infarct there was no intracranial hemorrhage. Patient was stabilized in the emergency room. Patient presentation is consistent with flash pulmonary edema due to acute diastolic heart failure and he be treated with intravenous furosemide infusion to reduce preload. MRI brain was ordered to rule out any acute ischemic stroke. Hospital Course Hospital Course: Patient was admitted because of acute respiratory distress due to acute diastolic heart failure, there was associated acute kidney injury with hyperkalemia. He was treated with Lasix drip on he diuresis very well, when he presented to the emergency room ER altered mental status because of a history of CVA CT scan of the head and MRI of the head was done and did not show any acute infarction but initial large area of encephalomalacia in the right MCA territory most consistent with a remote infarct, there was no intracranial hemorrhage. A 2D echo was done on this admission showed preserved ejection fraction of left ventricle with grade 2 diastolic dysfunction of the left ventricle. He regained full consciousness and medication was adjusted, he has history of atrial fibrillation he takes warfarin, anticoagulation, he was taken off warfarin and started on Eliquis. He has presently optimize inpatient care, the plan is to transfer any to nursing note for continuity of care, rehabilitation. Physical Exam Vital Signs: Temp Pulse Resp BP Pulse Ox 98.1 F 86 20 109/62 93 12/17/16 15:24 12/17/16 15:24 12/17/16 15:24 12/17/16 15:24 12/17/16 15:24 Intake & Output 12/16/16 12/17/16 12/18/16 06:59 06:59 06:59 Intake Total 885 607 60 Output Total 1200 250 Balance -315 357 60 Weight 62 kg 60.6 kg General appearance: PRESENT: no acute distress Eye exam: PRESENT: PERRLA Respiratory exam: PRESENT: clear to auscultation kimberly Cardiovascular exam: PRESENT: +S1, +S2 GI/Abdominal exam: PRESENT: soft Neurological exam: PRESENT: alert Results Laboratory Results: 12/17/16 05:03 12/17/16 05:03 12/16/16 12/17/16 12/17/16 20:25 05:03 05:03 WBC 8.6 RBC 3.34 L Hgb 10.7 L Hct 31.6 L MCV 95 MCH 31.9 MCHC 33.7 RDW 14.2 H Plt Count 235 Seg Neutrophils % 52.7 Lymphocytes % 33.3 Monocytes % 12.2 Eosinophils % 1.2 Basophils % 0.6 Absolute Neutrophils 4.5 Absolute Lymphocytes 2.9 Absolute Monocytes 1.0 Absolute Eosinophils 0.1 Absolute Basophils 0.0 Sodium 146.3 H Potassium 4.9 Chloride 112 H Carbon Dioxide 19 L Anion Gap 15 BUN 68 H Creatinine 2.14 H Est GFR ( Amer) 37 L Est GFR (Non-Af Amer) 30 L Glucose 122 H Calcium 8.9 Stool Occult Blood NEGATIVE 12/14/16 12/14/16 12/14/16 01:15 01:15 08:13 Creatine Kinase 92 94 CK-MB (CK-2) Troponin I 0.036 12/14/16 12/14/16 12/14/16 08:13 14:30 14:30 Creatine Kinase 95 CK-MB (CK-2) Troponin I 0.048 0.043 12/15/16 12/15/16 12/15/16 03:56 03:56 09:48 Creatine Kinase 101 104 CK-MB (CK-2) 2.26 Troponin I 0.056 12/15/16 12/15/16 12/15/16 09:48 15:45 15:45 Creatine Kinase 121 CK-MB (CK-2) 2.45 2.34 Troponin I 0.058 0.049 Impressions: Chest X-Ray 12/13/16 22:34 IMPRESSION: NO ACUTE RADIOGRAPHIC FINDING IN THE CHEST. Head CT 12/14/16 00:00 IMPRESSION: Motion artifact. No obvious acute intracranial hemorrhage or acute territorial infarct. Remote right MCA infarct. Chronic changes of atrophy and microvascular ischemia. Head MRI 12/14/16 00:00 IMPRESSION: Negative for acute or sub-acute infarction. Old right frontal infarct. Moderate chronic small vessel ischemic changes. . Renal Ultrasound 12/14/16 00:00 IMPRESSION: CHRONIC MEDICAL RENAL DISEASE. NO HYDRONEPHROSIS.
[2016-12-17] MEDS: PHARMACY COMMUNICATION ORDER MC SCH (18:29)
[2016-12-17 20:32] VITALS: BP 108/63
== END 2016-12-17 20:15 | DRG 291 ==
LOC: ER 22:24 → EH 12-14 00:43 → UNDOADMIN 12-14 00:47 → 3W 12-14 05:15
PROVIDERS: ADMIT Internal Medicine; ATTEND Internal Medicine
PROC: 5A09457 Assistance with Respiratory Ventilation, 24-96 Consecutive Hours, Continuous Positive Airway Pressure (ICD-10-PCS; principal; 2016-12-13)
DX: I50.31 Acute diastolic (congestive) heart failure (principal); J96.01 Acute respiratory failure with hypoxia; N17.9 Acute kidney failure, unspecified; I69.354 Hemiplegia and hemiparesis following cerebral infarction affecting left non-dominant side; E87.5 Hyperkalemia; G40.909 Epilepsy, unspecified, not intractable, without status epilepticus; N40.0 Benign prostatic hyperplasia without lower urinary tract symptoms; J44.9 Chronic obstructive pulmonary disease, unspecified; I48.91 Unspecified atrial fibrillation; E11.51 Type 2 diabetes mellitus with diabetic peripheral angiopathy without gangrene; D64.9 Anemia, unspecified; M19.90 Unspecified osteoarthritis, unspecified site; J45.909 Unspecified asthma, uncomplicated; F03.90 Unspecified dementia, unspecified severity, without behavioral disturbance, psychotic disturbance, mood disturbance, and anxiety; R00.1 Bradycardia, unspecified; Z78.1 Physical restraint status; Z79.899 Other long term (current) drug therapy; Z79.01 Long term (current) use of anticoagulants; Z90.49 Acquired absence of other specified parts of digestive tract; Z96.651 Presence of right artificial knee joint; Z89.612 Acquired absence of left leg above knee; Z87.891 Personal history of nicotine dependence
CPT/HCPCS: 36415; 70450; 70551; 71010; 76770; 80048; 80053; 80061; 80162; 80185; 80307; 81001; 82140; 82150; 82272; 82550; 82553; 82803; 82962; 83036; 83605; 83690; 83735; 83880; 84439; 84443; 84484; 85025; 85610; 87040; 87086; 93005; 93010; 93306; 94640; 94660; 96365; 96366; 96375; 99291; J1815; J1940; J3490; J7050; J7614; J7620

== ENCOUNTER 2016-12-30 21:56 | Emergency (ER) | payer MEDICARE, MEDICAID ==
--- NOTE | 2016-12-30 22:01 | ER Document Report ---
ED Seizure - General Chief Complaint: Seizure Stated Complaint: SEIZURE Notes: The patient is a 71-year-old male, past medical history seizures, A. fib, cognitive delay, left AKA, presents after he had a 30 second generalized tonic- clonic seizure that resolved without any intervention. He takes Dilantin for his seizure disorder. Patient had a postictal. When EMS arrived, but he is back to baseline on arrival to the emergency room. He denies headache, head injury, nausea, vomiting, leg swelling, chest pain, fevers or neck stiffness. - Related Data Allergies/Adverse Reactions: No Known Allergies Allergy (Verified 06/16/16 16:17) Past Medical History - General Information source: Patient, Emergency Med Personnel - Social History Smoking Status: Unknown if Ever Smoked Family History: Reviewed & Not Pertinent - Past Medical History Cardiac Medical History: Reports: Hx Atrial Fibrillation, Hx Hypertension, Hx Peripheral Vascular Disease Denies: Hx Heart Attack Pulmonary Medical History: Reports: Hx Asthma, Hx COPD Denies: Hx Tuberculosis Neurological Medical History: Reports: Hx Cerebrovascular Accident - with left sided weakness. medications: Warfarin, Dilantin, Flomax, Hx Seizures Endocrine Medical History: Reports: Hx Diabetes Mellitus Type 2 Renal/ Medical History: Reports: Hx Benign Prostatic Hyperplasia GI Medical History: Denies: Hx Hepatitis, Hx Hiatal Hernia, Hx Ulcer Musculoskeltal Medical History: Reports Hx Arthritis, Reports Hx Musculoskeletal Deformity, Reports Hx Musculoskeletal Trauma Psychiatric Medical History: Denies: Hx Depression Infectious Medical History: Denies: Hx Hepatitis Past Surgical History: Reports: Hx Cholecystectomy, Hx Orthopedic Surgery - bilat Total Knee Replacement, left AKA. Denies: Hx Open Heart Surgery, Hx Pacemaker - Immunizations Hx Diphtheria, Pertussis, Tetanus Vaccination: No Hx Pneumococcal Vaccination: 09/13/13 Review of Systems - Review of Systems Notes: REVIEW OF SYSTEMS: CONSTITUTIONAL: -fevers, -chills EENT: -eye pain, -difficulty swallowing, -nasal congestion CARDIOVASCULAR:-chest pain, -syncope. RESPIRATORY: -cough, -SOB GASTROINTESTINAL: -abdominal pain, - nausea, -vomiting, -diarrhea GENITOURINARY: -dysuria, -hematuria MUSCULOSKELETAL: -back pain, -neck pain SKIN: -rash or skin lesions. HEMATOLOGIC: -easy bruising or bleeding. LYMPHATIC: -swollen, enlarged glands. NEUROLOGICAL: -altered mental status or loss of consciousness, -headache, + seizure PSYCHIATRIC: -anxiety, -depression. ALL OTHER SYSTEMS REVIEWED AND NEGATIVE. Physical Exam - Vital signs Vitals: Temp Pulse Resp BP Pulse Ox 98.9 F 74 19 137/89 H 100 12/30/16 22:03 12/30/16 22:03 12/30/16 22:03 12/30/16 22:03 12/30/16 22:03 - Notes Notes: PHYSICAL EXAMINATION: GENERAL: Well-appearing, well-nourished and in no acute distress. HEAD: Atraumatic, normocephalic. EYES: Pupils equal round and reactive to light, extraocular movements intact, sclera anicteric, conjunctiva are normal. ENT: nares patent, oropharynx clear without exudates. Moist mucous membranes. NECK: Normal range of motion, supple without lymphadenopathy LUNGS: Breath sounds clear to auscultation bilaterally and equal. No wheezes rales or rhonchi. HEART: Irregularly irregular rhythm ABDOMEN: Soft, nontender, normoactive bowel sounds. No guarding, no rebound. No masses appreciated. EXTREMITIES: Left AKA, normal range of motion, no pitting or edema. No cyanosis. NEUROLOGICAL: Cranial nerves grossly intact. Normal speech. SKIN: Warm, Dry, normal turgor, no rashes or lesions noted. Course - Re-evaluation Re-evalutation: Patient with known seizure disorder on Dilantin and had a breakthrough seizure. Will check Dilantin level. Accu-Chek 132 by EMS. 12/30/16 22:50 Pt's dilantin level is undetectable. His oral loading dose would be 450 mg once. Will provide this and instruct patient and mcc to take his 100 mg every 8 hours as directed to help prevent future seizures. - Vital Signs Vital signs: Temp Pulse Resp BP Pulse Ox 98.9 F 74 19 137/89 H 100 12/30/16 22:03 12/30/16 22:03 12/30/16 22:03 12/30/16 22:03 12/30/16 22:03 - Laboratory Laboratory results interpreted by me: 12/30/16 22:21 Phenytoin < 3.0 L Discharge - Discharge Clinical Impression: Seizure disorder Condition: Stable Disposition: REHAB FACILITY Additional Instructions: Your Dilantin level was undetectable tonight and you were given a loading dose. Take your Dilantin 100 mg every 8 hours as prescribed and follow-up with your primary care physician and neurologist. Seizure, Known Epileptic You have had a seizure. Seizures may "break through" in an epileptic due to stress of infection or injury, a change in blood chemistry, or drug and alcohol use. Another common cause is failure to take medication as prescribed. Your doctor has evaluated your situation for the likely cause of this seizure. It is important that you follow his advice concerning any medication changes and follow-up care. Further testing of anti-seizure medication levels in your blood may be necessary. If you have a non [place] driver's license, it's important that you DO NOT DRIVE until given permission by your physician. This seizure must be reported to the non [place] driver 's license bureau. Call the doctor or return if seizures recur, or if new or unusual symptoms arise -- such as severe headache, confusion, excessive sleepiness, local weakness or numbness, neck stiffness, or fever. Referrals: KAREN RAMOS MD [ACTIVE STAFF] - Follow up as needed
[2016-12-30] MEDS ORDERED: PHENYTOIN SODIUM EXTENDED 100 MG CAPSULE PO ONE (22:50)
[2016-12-31 04:01] VITALS: BP 134/88
== END 2016-12-31 04:01 ==
LOC: ER 21:56
DX: G40.909 Epilepsy, unspecified, not intractable, without status epilepticus (principal); I48.91 Unspecified atrial fibrillation; Z79.899 Other long term (current) drug therapy
CPT/HCPCS: 99285; 36415; 80185; A9270

== ENCOUNTER 2017-02-04 03:56 | Emergency (ER) | payer MEDICARE, MEDICAID ==
[2017-02-04 07:18] LABS: ABSOLUTE EOSINOPHILS # (AUTO) 0.1 10^3/uL (0.0-0.6); ABSOLUTE LYMPHOCYTES (AUTO) 1.9 10^3/uL (0.5-4.7); ABSOLUTE MONOCYTES (AUTO) 0.5 10^3/uL (0.1-1.4); ABSOLUTE NEUT (AUTO) 2.8 10^3/uL (1.7-8.2); BASOPHILS % (AUTO) 0.9 % (0-2); EOSINOPHILS % (AUTO) 1.9 % (0-6); HEMATOCRIT 32.5 % (37.9-51.0); HEMOGLOBIN 10.6 g/dL (13.5-17.0); HGB HCT DIFFERENCE -0.7; LYMPHOCYTES % (AUTO) 35.5 % (13-45); MEAN CORPUSCULAR HEMOGLOBIN 31.5 pg (27.0-33.4); MEAN CORPUSCULAR HGB CONC 32.5 g/dL (32.0-36.0); MEAN CORPUSCULAR VOLUME 97 fl (80-97); RED BLOOD COUNT 3.36 10^6/uL (4.35-5.55); SEGMENTED NEUTROPHILS % (AUTO) 52.7 % (42-78); WHITE BLOOD COUNT 5.3 10^3/uL (4.0-10.5)
[2017-02-04 07:22] LABS: ALANINE AMINOTRANSFERASE 30 U/L (21-72); ALBUMIN 3.4 g/dL (3.5-5.0); ALKALINE PHOSPHATASE 109 U/L (38-126); ANION GAP 13 (5-19); ASPARTATE AMINO TRANSFERASE 24 U/L (17-59); BILIRUBIN,DIRECT 0.2 mg/dL (0.0-0.4); BILIRUBIN,TOTAL 0.2 mg/dL (0.2-1.3); BLOOD UREA NITROGEN 43 mg/dL (7-20); CALCIUM 9.2 mg/dL (8.4-10.2); CARBON DIOXIDE 17 mmol/L (22-30); CHLORIDE 114 mmol/L (98-107); CREATINE KINASE 74 U/L (55-170); CREATININE RESULT 1.96 mg/dL (0.52-1.25); GLUCOSE 86 mg/dL (75-110); POTASSIUM 5.2 mmol/L (3.6-5.0); SODIUM 144.2 mmol/L (137-145); TOTAL PROTEIN 7.3 g/dL (6.3-8.2)
--- NOTE | 2017-02-04 07:28 | RADIOLOGY REPORT (SQ) ---
EXAM DESCRIPTION: SHOULDER RIGHT 2 OR MORE VIEWS COMPLETED DATE/TIME: 02/04/2017 7:12 am REASON FOR STUDY: post seizure pain COMPARISON: None. NUMBER OF VIEWS: Three views. TECHNIQUE: Internal rotation, external rotation, and AP images acquired of the right shoulder. LIMITATIONS: None. FINDINGS: MINERALIZATION: Mild demineralization. BONES: No acute fracture or dislocation. No worrisome bone lesions. Mild osteoarthritis includes th e acromioclavicular joint and acromial humeral joint with possible subacromial impingement. JOINTS: No dislocation. VISUALIZED LUNGS AND RIBS: No pneumothorax. No rib fracture. SOFT TISSUES: No radiopaque foreign body. OTHER: Atherosclerosis. Moderate disc desiccation. Chronic rib deformities at approximately the rig ht 6th, 8th, and 9th levels as compared with chest radiograph, 12/13/2016. IMPRESSION: NO RADIOGRAPHIC EVIDENCE OF ACUTE INJURY. TECHNICAL DOCUMENTATION: JOB ID: [id number] [employer]- All Rights Reserved
[2017-02-04 07:31] LABS: CREATINE KINASE MB 1.66 ng/mL (<4.55); TROPONIN I 0.028 ng/mL
--- NOTE | 2017-02-04 07:31 | RADIOLOGY REPORT (SQ) ---
EXAM DESCRIPTION: ANKLE RIGHT COMPLETE COMPLETED DATE/TIME: 02/04/2017 7:12 am REASON FOR STUDY: post seizure pain COMPARISON: None. NUMBER OF VIEWS: Three views. TECHNIQUE: AP, lateral, and oblique radiographic images acquired of the right ankle. LIMITATIONS: None. FINDINGS: MINERALIZATION: Normal. BONES: No acute fracture or dislocation. No worrisome bone lesions. Mild osteoarthritis of the medi al malleolus and small plantar faucial enthesophyte. Atherosclerosis. JOINTS: No effusions. SOFT TISSUES: No soft tissue swelling. No foreign body. OTHER: No other significant finding. IMPRESSION: NO RADIOGRAPHIC EVIDENCE OF ACUTE INJURY. TECHNICAL DOCUMENTATION: JOB ID: [id number] [email or web address]- All Rights Reserved
--- NOTE | 2017-02-04 07:36 | ER Document Report ---
ED General - General Chief Complaint: Fall Injury Stated Complaint: FALL Time Seen by Provider: 02/04/17 06:05 Mode of Arrival: Ambulatory Information source: Patient Notes: 71-year-old male history of seizure disorder eye care facility was found on the floor by caregivers. Patient denied any complaints except for right shoulder pain. Patient denies any fevers or chills denies any nausea or vomiting. Patient does admit to mild right ankle pain. TRAVEL OUTSIDE OF THE [place] IN LAST 30 DAYS: No - HPI Onset: Just prior to arrival Onset/Duration: Sudden Quality of pain: Achy Severity: Mild Pain Level: 1 Associated symptoms: Body/muscle aches, Weakness Exacerbated by: Movement Relieved by: Denies Similar symptoms previously: Yes Recently seen / treated by doctor: Yes - Related Data Allergies/Adverse Reactions: No Known Allergies Allergy (Verified 06/16/16 16:17) Past Medical History - Social History Smoking Status: Never Smoker Cigarette use (# per day): No Chew tobacco use (# tins/day): No Smoking Education Provided: No Family History: Reviewed & Not Pertinent - Past Medical History Cardiac Medical History: Reports: Hx Atrial Fibrillation, Hx Hypertension, Hx Peripheral Vascular Disease Denies: Hx Heart Attack Pulmonary Medical History: Reports: Hx Asthma, Hx COPD Denies: Hx Tuberculosis Neurological Medical History: Reports: Hx Cerebrovascular Accident - with left sided weakness. medications: Warfarin, Dilantin, Flomax, Hx Seizures Endocrine Medical History: Reports: Hx Diabetes Mellitus Type 2 Renal/ Medical History: Reports: Hx Benign Prostatic Hyperplasia. Denies: Hx Peritoneal Dialysis GI Medical History: Denies: Hx Hepatitis, Hx Hiatal Hernia, Hx Ulcer Musculoskeltal Medical History: Reports Hx Arthritis, Reports Hx Musculoskeletal Deformity, Reports Hx Musculoskeletal Trauma Psychiatric Medical History: Denies: Hx Depression Infectious Medical History: Denies: Hx Hepatitis Past Surgical History: Reports: Hx Cholecystectomy, Hx Orthopedic Surgery - bilat Total Knee Replacement, left AKA. Denies: Hx Open Heart Surgery, Hx Pacemaker - Immunizations Hx Diphtheria, Pertussis, Tetanus Vaccination: No Hx Pneumococcal Vaccination: 09/13/13 Review of Systems - Review of Systems Notes: PHYSICAL EXAMINATION: GENERAL: Well-appearing, well-nourished and in no acute distress. HEAD: Atraumatic, normocephalic. EYES: Pupils equal round and reactive to light, extraocular movements intact, sclera anicteric, conjunctiva are normal. ENT: Nares patent, oropharynx clear without exudates. Moist mucous membranes. NECK: Normal range of motion, supple without lymphadenopathy or and placed LUNGS: Breath sounds clear to auscultation bilaterally and equal. No wheezes rales or rhonchi. HEART: Regular rate and rhythm without murmurs ABDOMEN: Soft, nontender, nondistended abdomen. No guarding, no rebound. No masses appreciated. Musculoskeletal:mild right shoulder , ankle and knee pain left AKA NEUROLOGICAL: Cranial nerves grossly intact. Normal speech, normal gait. Normal sensory, motor exams PSYCH: Normal mood, normal affect. SKIN: Skin abrasion over right orbital Physical Exam - Vital signs Vitals: Resp 10 L 02/04/17 04:06 Course - Re-evaluation Re-evalutation: 02/04/17 07:36 imaging pending at this time, ckd noted 02/04/17 09:53 CT imaging noted no significant abnormality, patient's lab work appears at his baseline. He has no other complaints at this time I will discharge him home with very close return precautions After performing a Medical Screening Examination, I estimate there is LOW risk for INTRACRANIAL HEMORRHAGE, UNSTABLE SPINE FRACTURE, CENTRAL CORD SYNDROME, CAUDA EQUINA, THORACIC AORTIC DISSECTION, PNEUMOTHORAX, PERFORATED BOWEL, RUPTURED ABDOMINAL AORTIC ANEURYSM, ACUTE TENDON RUPTURE, COMPARTMENT SYNDROME, or OPEN FRACTURE, thus I consider the discharge disposition reasonable. Also, there is no evidence or peritonitis, sepsis, or toxicity. I have reevaluated this patient multiple times and no significant life threatening changes are noted. The patient and I have discussed the diagnosis and risks, and we agree with discharging home to follow-up with their primary doctor with the understanding that symptoms and presentations can change. We also discussed returning to the Emergency Department immediately if new or worsening symptoms occur. We have discussed the symptoms which are most concerning (e.g., bloody stool, fever, changing or worsening pain, vomiting) that necessitate immediate return. - Vital Signs Vital signs: Temp Pulse Resp BP Pulse Ox 97.7 F 75 18 178/104 H 96 02/04/17 04:13 02/04/17 04:13 02/04/17 09:02 02/04/17 09:02 02/04/17 04:13 - Laboratory Result Diagrams: 02/04/17 06:25 02/04/17 06:25 Laboratory results interpreted by me: 02/04/17 02/04/17 06:25 06:25 RBC 3.36 L Hgb 10.6 L Hct 32.5 L Potassium 5.2 H Chloride 114 H Carbon Dioxide 17 L BUN 43 H Creatinine 1.96 H Est GFR ( Amer) 41 L Est GFR (Non-Af Amer) 34 L Albumin 3.4 L - Diagnostic Test Radiology reviewed: Image reviewed, Reports reviewed - No acute abnormalities Discharge - Discharge Clinical Impression: Skin abrasion Fall Qualifiers: Encounter type: initial encounter Qualified Code(s): W19.XXXA - Unspecified fall, initial encounter CKD (chronic kidney disease) Qualifiers: Chronic kidney disease stage: stage 3 (moderate) Qualified Code(s): N18.3 - Chronic kidney disease, stage 3 (moderate) Condition: Stable Disposition: HOME, SELF-CARE Instructions: Contusion ([facility]) Additional Instructions: Follow up with your physician tomorrow for further care or return to the ED IMMEDIATELY if symptoms worsen or new concerns occur. If you cannot afford to follow up with your primary care physician a list of low cost clinics have been provided at the end of your discharge papers as well.
--- NOTE | 2017-02-04 07:52 | EKG REPORT ---
SEVERITY:- ABNORMAL ECG - ATRIAL FIBRILLATION LOW VOLTAGE IN FRONTAL LEADS NONSPECIFIC T ABNORMALITIES, DIFFUSE LEADS : Confirmed by: Jae De L aGarza MD 04-Feb-2017 07:51:56
--- NOTE | 2017-02-04 08:12 | RADIOLOGY REPORT (SQ) ---
EXAM DESCRIPTION: CT HEAD WITHOUT COMPLETED DATE/TIME: 02/04/2017 7:56 am REASON FOR STUDY: post seizure pain COMPARISON: 12/14/2016. MRI, 12/14/2016. TECHNIQUE: Axial images acquired through the brain without intravenous contrast. Images reviewed wi th bone, brain and subdural windows. Images stored on PACS. All CT scanners at this facility use dose modulation, iterative reconstruction, and/or weight based d osing when appropriate to reduce radiation dose to as low as reasonably achievable (ALARA). [facility]: Dose Right [facility]: CareDose [facility]: Dose Right [facility]: Teradose 4D [facility]: TrenStar RADIATION DOSE: 64.61 mGy. LIMITATIONS: None. FINDINGS: VENTRICLES: Normal size and contour. CEREBRUM: Moderate extensive cytotoxic edema/encephalomalacia right parietal lobe consistent right MC A infarct and a small cytotoxic edema/ encephalomalacia of the anterior left parietal lobe, somewhat evolved compared with prior exams. Atherosclerosis. White matter microangiopathy. CEREBELLUM: No masses. No hemorrhage. No alteration of density. No evidence for acute infarction. EXTRAAXIAL SPACES: No fluid collections. No masses. ORBITS AND GLOBE: No intra- or extraconal masses. Normal contour of globe without masses. CALVARIUM: No fracture. PARANASAL SINUSES: No fluid or mucosal thickening. SOFT TISSUES: No mass or hematoma. OTHER: No other significant finding. IMPRESSION: No acute findings. Extensive right MCA infarct. TECHNICAL DOCUMENTATION: JOB ID: [id number] Quality ID # [id number]: Final reports with documentation of one or more dose reduction techniques (e.g., Au tomated exposure control, adjustment of the mA and/or kV according to patient size, use of iterative reconstruction technique) 2010 [employer]- All Rights Reserved
--- NOTE | 2017-02-04 08:39 | RADIOLOGY REPORT (SQ) ---
EXAM DESCRIPTION: CT CERVICAL SPINE WITHOUT COMPLETED DATE/TIME: 02/04/2017 7:55 am REASON FOR STUDY: post seizure pain COMPARISON: None. TECHNIQUE: Axial images acquired through the cervical spine without intravenous contrast. Images re viewed with lung, soft tissue and bone windows. Reconstructed coronal and sagittal MPR images review ed. Images stored on PACS. All CT scanners at this facility use dose modulation, iterative reconstruction, and/or weight based d osing when appropriate to reduce radiation dose to as low as reasonably achievable (ALARA). [facility]: Dose Right [facility]: CareDose [facility]: Dose Right [facility]: Teradose 4D [facility]: [employer] RADIATION DOSE: 15.21 mGy. LIMITATIONS: None. FINDINGS: ALIGNMENT: Anatomic. MINERALIZATION: Normal. VERTEBRAL BODIES: No fractures or dislocation. DISCS: Multilevel disc space narrowing with osteophytes most notably in the mid and upper cervical sp ine. FACETS, LATERAL MASSES, POSTERIOR ELEMENTS: Facet arthropathy. No fractures. No dislocation. No ac margarita findings. HARDWARE: None in the spine. VISUALIZED RIBS: No fractures. LUNG APICES AND SOFT TISSUES: No significant or acute findings. OTHER: No other significant finding. IMPRESSION: CHRONIC DEGENERATIVE CHANGES. NO ACUTE FINDINGS. TECHNICAL DOCUMENTATION: JOB ID: [id number] Quality ID # [id number]: Final reports with documentation of one or more dose reduction techniques (e.g., Au tomated exposure control, adjustment of the mA and/or kV according to patient size, use of iterative reconstruction technique) 2010 [employer]- All Rights Reserved
[2017-02-04 12:05] VITALS: BP 151/82
== END 2017-02-04 12:14 | disposition home or self-care (01) ==
LOC: ER 03:56
DX: S00.211A Abrasion of right eyelid and periocular area, initial encounter (principal); M25.511 Pain in right shoulder; M25.571 Pain in right ankle and joints of right foot; M25.561 Pain in right knee; W19.XXXA Unspecified fall, initial encounter; R53.1 Weakness; E11.22 Type 2 diabetes mellitus with diabetic chronic kidney disease; I12.9 Hypertensive chronic kidney disease with stage 1 through stage 4 chronic kidney disease, or unspecified chronic kidney disease; N18.3 Chronic kidney disease, stage 3 (moderate); J44.9 Chronic obstructive pulmonary disease, unspecified; Z89.612 Acquired absence of left leg above knee
CPT/HCPCS: 36415; 70450; 72125; 80053; 82550; 82553; 84484; 85025; 93005; 93010; 99285

== ENCOUNTER 2017-03-23 22:49 | Emergency (ER) | payer MEDICARE, MEDICAID ==
--- NOTE | 2017-03-23 23:21 | RADIOLOGY REPORT (SQ) ---
EXAM DESCRIPTION: SHOULDER RIGHT 2 OR MORE VIEWS COMPLETED DATE/TIME: 03/23/2017 11:08 pm REASON FOR STUDY: fall injury COMPARISON: None. NUMBER OF VIEWS: Three views. TECHNIQUE: Internal rotation, external rotation, and Y view images acquired of the right shoulder. LIMITATIONS: None. FINDINGS: MINERALIZATION: Normal. BONES: No acute fracture or dislocation. No worrisome bone lesions. JOINTS: No dislocation. VISUALIZED LUNGS AND RIBS: No pneumothorax. No rib fracture. SOFT TISSUES: No radiopaque foreign body. OTHER: No other significant finding. IMPRESSION: NEGATIVE STUDY OF THE RIGHT SHOULDER. NO RADIOGRAPHIC EVIDENCE OF ACUTE INJURY. TECHNICAL DOCUMENTATION: JOB ID: [id number] [employer]- All Rights Reserved
[2017-03-24] MEDS ORDERED: ACETAMINOPHEN 325 MG TABLET PO ONE (02:37)
--- NOTE | 2017-03-24 02:37 | ER Document Report ---
ED Fall - General Chief Complaint: Fall Injury Stated Complaint: RIGHT SHOULDER PAIN Time Seen by Provider: 03/24/17 02:15 Notes: Patient is a 71-year-old male that comes emergency department for chief complaint of a fall from sitting more he landed on a tile floor, he states he hit his right shoulder and his right shoulder hurts. He denies any other locations of pain. He denies passing out, dizziness, chest pain, shortness of breath. He [id number]. 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 TRAVEL OUTSIDE OF THE [place] IN LAST 30 DAYS: No - Related data Allergies/Adverse Reactions: No Known Allergies Allergy (Verified 03/23/17 22:54) Past Medical History - General Information source: Patient - Social History Smoking Status: Never Smoker Frequency of alcohol use: None Drug Abuse: None Lives with: Family Family History: Reviewed & Not Pertinent - Past Medical History Cardiac Medical History: Reports: Hx Atrial Fibrillation, Hx Hypertension, Hx Peripheral Vascular Disease Denies: Hx Heart Attack Pulmonary Medical History: Reports: Hx Asthma, Hx COPD Denies: Hx Tuberculosis Neurological Medical History: Reports: Hx Cerebrovascular Accident - with left sided weakness. medications: Warfarin, Dilantin, Flomax, Hx Seizures Endocrine Medical History: Reports: Hx Diabetes Mellitus Type 2 Renal/ Medical History: Reports: Hx Benign Prostatic Hyperplasia. Denies: Hx Peritoneal Dialysis GI Medical History: Denies: Hx Hepatitis, Hx Hiatal Hernia, Hx Ulcer Musculoskeltal Medical History: Reports Hx Arthritis, Reports Hx Musculoskeletal Deformity, Reports Hx Musculoskeletal Trauma Psychiatric Medical History: Denies: Hx Depression Infectious Medical History: Denies: Hx Hepatitis Past Surgical History: Reports: Hx Cholecystectomy, Hx Orthopedic Surgery - bilat Total Knee Replacement, left AKA. Denies: Hx Open Heart Surgery, Hx Pacemaker - Immunizations Hx Diphtheria, Pertussis, Tetanus Vaccination: No Hx Pneumococcal Vaccination: 09/13/13 Review of Systems - Review of Systems Constitutional: No symptoms reported EENT: No symptoms reported Cardiovascular: No symptoms reported Respiratory: No symptoms reported Gastrointestinal: No symptoms reported Genitourinary: No symptoms reported Male Genitourinary: No symptoms reported Musculoskeletal: See HPI Skin: No symptoms reported Hematologic/Lymphatic: No symptoms reported Neurological/Psychological: No symptoms reported Physical Exam - Vital signs Vitals: Temp Pulse Resp BP Pulse Ox 97.5 F 82 16 140/87 H 84 L 03/23/17 23:00 03/23/17 23:00 03/23/17 23:00 03/23/17 23:00 03/23/17 23:00 Interpretation: Normal - General General appearance: Appears well In distress: None - HEENT Head: Normocephalic, Atraumatic. No: Abrasions, Aldridge's sign, Ecchymosis, Tenderness Eyes: Normal Conjunctiva: Normal Extraocular movements intact: Yes Eyelashes: Normal Pupils: PERRL Sinus: Normal Nasal: Normal Mouth/Lips: Normal Mucous membranes: Normal Pharynx: Normal Neck: Normal - Respiratory Respiratory status: No respiratory distress Chest status: Nontender Breath sounds: Normal Chest palpation: Normal - Cardiovascular Rhythm: Regular Heart sounds: Normal auscultation Murmur: No - Abdominal Inspection: Normal Distension: No distension Bowel sounds: Normal Tenderness: Nontender Organomegaly: No organomegaly - Back Back: Normal, Nontender. No: Tender, Vertebra tenderness - Extremities General upper extremity: Normal inspection, Nontender - I do not appreciate any tenderness or signs of injury, including over the right shoulder, Normal color, Normal ROM, Normal temperature General lower extremity: Normal inspection, Nontender, Normal color, Normal ROM , Normal temperature, Normal weight bearing. No: Rohini's sign - Neurological Neuro grossly intact: Yes Cognition: Normal Orientation: AAOx4 Walt Coma Scale Eye Opening: Spontaneous [place] Coma Scale Verbal: Oriented Walt Coma Scale Motor: Obeys Commands [place] Coma Scale Total: 15 Speech: Normal Motor strength normal: LUE, RUE, LLE, RLE Sensory: Normal - Psychological Associated symptoms: Normal affect, Normal mood - Skin Skin Temperature: Warm Skin Moisture: Dry Skin Color: Normal Course - Re-evaluation Re-evalutation: No signs of injury. Patient alert and follows directions without any difficulty. He is in no distress. Full range of motion of the shoulder. X- ray of the shoulder are unremarkable. No other reported injuries or concerning findings. Patient's hands called initially, an accurate pulse oxygenation was obtained, patient given warm blanket, after his hands warmed up an accurate reading was found and this was found to be normal. - Vital Signs Vital signs: Temp Pulse Resp BP Pulse Ox 97.3 F 81 18 146/88 H 100 03/24/17 04:00 03/24/17 04:00 03/24/17 04:00 03/24/17 04:00 03/24/17 04:00 Discharge - Discharge Clinical Impression: Fall Qualifiers: Encounter type: initial encounter Qualified Code(s): W19.XXXA - Unspecified fall, initial encounter Right shoulder pain Qualifiers: Chronicity: acute Qualified Code(s): M25.511 - Pain in right shoulder Condition: Stable Disposition: HOME, SELF-CARE Additional Instructions: No concerning findings are noted on examination, x-ray of the shoulder is negative. If needed apply ice to the shoulder, take Tylenol for pain. Return to the Emergency department for any concerning symptoms.
[2017-03-24 05:38] VITALS: BP 146/88
== END 2017-03-24 04:00 | disposition home or self-care (01) ==
LOC: ER 22:49
DX: M25.511 Pain in right shoulder (principal); W07.XXXA Fall from chair, initial encounter; I48.91 Unspecified atrial fibrillation; I10 Essential (primary) hypertension; J44.9 Chronic obstructive pulmonary disease, unspecified; I69.954 Hemiplegia and hemiparesis following unspecified cerebrovascular disease affecting left non-dominant side; E11.9 Type 2 diabetes mellitus without complications; Z90.49 Acquired absence of other specified parts of digestive tract; Z96.653 Presence of artificial knee joint, bilateral; Z89.612 Acquired absence of left leg above knee
CPT/HCPCS: 99284

== ENCOUNTER → 2017-04-14 | Outpatient (CLI) | payer MEDICARE, MEDICAID ==
--- NOTE | 2017-04-14 11:03 | RADIOLOGY REPORT (SQ) ---
EXAM DESCRIPTION: CT CHEST WITHOUT COMPLETED DATE/TIME: 04/14/2017 10:02 am REASON FOR STUDY: ACUTE RESPIRATORY FAILURE J96.01 ACUTE RESPIRATORY FAILURE WITH HYPOXIA COMPARISON: None. TECHNIQUE: CT scan performed of the chest without intravenous contrast. Images reviewed with lung, soft tissue and bone windows. Reconstructed coronal and sagittal MPR images reviewed. All images st ored on PACS. All CT scanners at this facility use dose modulation, iterative reconstruction, and/or weight based d osing when appropriate to reduce radiation dose to as low as reasonably achievable (ALARA). [facility]: Dose Right [facility]: CareDose [facility]: Dose Right [facility]: Teradose 4D [facility]: [employer] RADIATION DOSE: Up-to-date CT equipment and radiation dose reduction techniques were employed. CTDIv ol: 3.6 mGy. DLP: 141 mGy-cm. mGy. LIMITATIONS: No technical limitations. FINDINGS: LUNGS AND PLEURA: No masses, infiltrates, pneumothorax. No pleural effusions, calcificati ons. HILAR AND MEDIASTINAL STRUCTURES: No identified masses or abnormal nodes. HEART AND VASCULAR STRUCTURES: No aneurysm. Diffuse calcific atheromatous disease of the aorta. Cor onary calcifications. No pericardial effusion. UPPER ABDOMEN: No significant findings. Vascular calcifications of the renal arteries. Limited exam . THYROID AND OTHER SOFT TISSUES: No masses. No adenopathy. BONES: Multilevel degenerative changes of thoracic spine. No acute osseous abnormality. HARDWARE: None in the chest. OTHER: No other significant findings. IMPRESSION: No acute or significant abnormality identified on this noncontrast study of of the chest . There is diffuse vascular calcifications of the aorta and its branches including the coronary juliette haresh. TECHNICAL DOCUMENTATION: JOB ID: [id number] Quality ID # [id number]: Final reports with documentation of one or more dose reduction techniques (e.g., Au tomated exposure control, adjustment of the mA and/or kV according to patient size, use of iterative reconstruction technique) 2010 [employer]- All Rights Reserved
== END ==
LOC: RAD 09:09
PROVIDERS: ATTEND Internal Medicine
DX: J96.01 Acute respiratory failure with hypoxia (principal)
CPT/HCPCS: 71250; 82565

== ENCOUNTER → 2017-10-28 | Outpatient (CLI) | payer MEDICARE, MEDICAID ==
--- NOTE | 2017-10-29 08:28 | XCELERA REPORT ---
[address] [address] Lower Extremity Arterial Evaluation Name: GRAYSON BURCH Age: 72 yrs Gender: Male : 1945 Patient Status: Outpatient Patient Location: Study Date: 10/28/2017 12:13 PM Procedure: A color flow and duplex scan of the lower extremity arteries was performed on the right with velocity and waveform anaylsis. Reason For Study: PVD RLE ONLY [facility] Ordering Physician: SANTI ONTIVEROS Performed By: Emma Valdivia Measurements and Calculations Right Left EXTERNAL GRINDER PSV 59.7 cm/sec Prox PFA PSV -53.0 cm/sec Prox SFA PSV -37.7 cm/sec Mid SFA PSV -38.5 cm/sec Dist SFA PSV -46.0 cm/sec Prox Pop A PSV 19.8 cm/sec Prox RAI PSV 47.5 cm/sec Dist RAI PSV 25.5 cm/sec Prox NYLON MACHINE OPERATOR PSV 40.4 cm/sec Dist Amparo A PSV -37.0 cm/sec Xander Pedis PSV 21.6 cm/sec Right Side Arterial Evaluation Low normal velocity and triphasic waveforms noted from the Common Femoral artery to the Popliteal artery. Biphasic in the Posterior Tibial artery with distal occlusion. Monophasic in the Anterior Tibial artery. 50-99 % stenosis in the infrageniculate vessels with distal occlusion in the Posterior Tibial artery. Ankle Brachial index is 0.85. Interpretation Summary Severe hemodynamically significant lesions in the bilateral lower extremities, on duplex imaging, at rest. Disease impact is distal, which may not be as amenable to interventional improvement. : SANTI ONTIVEROS > Santi Ontiveros
== END ==
LOC: SP 11:30
PROVIDERS: ATTEND Surgery
DX: M79.674 Pain in right toe(s) (principal); I77.1 Stricture of artery
CPT/HCPCS: 93926

== ENCOUNTER 2017-12-22 19:35 | Inpatient (IN) | payer MEDICARE, MEDICAID ==
[2017-12-22 21:23] LABS: ABSOLUTE EOSINOPHILS # (AUTO) 0.2 10^3/uL (0.0-0.6); ABSOLUTE LYMPHOCYTES (AUTO) 1.8 10^3/uL (0.5-4.7); ABSOLUTE MONOCYTES (AUTO) 0.6 10^3/uL (0.1-1.4); BASOPHILS % (AUTO) 0.9 % (0-2); EOSINOPHILS % (AUTO) 3.6 % (0-6); HEMATOCRIT 28.9 % (37.9-51.0); HEMOGLOBIN 9.6 g/dL (13.5-17.0); LYMPHOCYTES % (AUTO) 39.5 % (13-45); MEAN CORPUSCULAR HEMOGLOBIN 32.1 pg (27.0-33.4); MEAN CORPUSCULAR HGB CONC 33.3 g/dL (32.0-36.0); MEAN CORPUSCULAR VOLUME 96 fl (80-97); MONOCYTES % (AUTO) 12.7 % (3-13); PLATELET COUNT 219 10^3/uL (150-450); RED BLOOD COUNT 2.99 10^6/uL (4.35-5.55); RED CELL DISTRIBUTION WIDTH 14.6 % (11.5-14.0); SEGMENTED NEUTROPHILS % (AUTO) 43.3 % (42-78); TOTAL CELLS COUNTED % (AUTO) 100 %; WHITE BLOOD COUNT 4.7 10^3/uL (4.0-10.5)
[2017-12-22 21:29] LABS: INTERNATIONAL RATION (INR) 1.21; PROTHROMBIN TIME 15.9 SEC (11.4-15.4)
[2017-12-22 21:30] LABS: PARTIAL THROMBOPLASTIN TIME 37.2 SEC (23.5-35.8)
[2017-12-22 21:45] LABS: ALANINE AMINOTRANSFERASE 25 U/L (21-72); ALBUMIN 3.4 g/dL (3.5-5.0); ALKALINE PHOSPHATASE 99 U/L (38-126); ANION GAP 12 (5-19); ASPARTATE AMINO TRANSFERASE 22 U/L (17-59); BILIRUBIN,DIRECT 0.2 mg/dL (0.0-0.4); BILIRUBIN,TOTAL 0.2 mg/dL (0.2-1.3); BLOOD UREA NITROGEN 53 mg/dL (7-20); CALCIUM 8.6 mg/dL (8.4-10.2); CARBON DIOXIDE 21 mmol/L (22-30); CHLORIDE 111 mmol/L (98-107); GLUCOSE 89 mg/dL (75-110); POTASSIUM 5.4 mmol/L (3.6-5.0); SODIUM 144.4 mmol/L (137-145); TOTAL PROTEIN 6.7 g/dL (6.3-8.2)
[2017-12-22] MEDS ORDERED: NORMAL SALINE 1000 ML 1,000 ML IV ONE (22:24)
--- NOTE | 2017-12-22 22:31 | ER Document Report ---
ED General - General Chief Complaint: Abnormal Lab Results Stated Complaint: ABNORMAL LABS Time Seen by Provider: 12/22/17 20:50 Mode of Arrival: Stretcher Information source: Outside Facility Records TRAVEL OUTSIDE OF THE [place] IN LAST 30 DAYS: No - HPI Patient complains to provider of: Abnormal labs Quality of pain: No pain Notes: Patient is a 72-year-old male sent from local [facility] for abnormal labs noted on outpatient labs drawn earlier today, he is noted to have an elevated phenytoin level as well as BUN and creatinine, patient has no complaints and is unsure why he is in the emergency room at this point in time - Related Data Allergies/Adverse Reactions: No Known Allergies Allergy (Verified 12/22/17 20:15) Past Medical History - General Information source: Outside Facility Records - Social History Smoking Status: Unknown if Ever Smoked Family History: Reviewed & Not Pertinent - Past Medical History Cardiac Medical History: Reports: Hx Atrial Fibrillation, Hx Hypertension, Hx Peripheral Vascular Disease Denies: Hx Heart Attack Pulmonary Medical History: Reports: Hx Asthma, Hx COPD Denies: Hx Tuberculosis Neurological Medical History: Reports: Hx Cerebrovascular Accident - with left sided weakness. medications: Warfarin, Dilantin, Flomax, Hx Seizures Endocrine Medical History: Reports: Hx Diabetes Mellitus Type 2 Renal/ Medical History: Reports: Hx Benign Prostatic Hyperplasia. Denies: Hx Peritoneal Dialysis GI Medical History: Denies: Hx Hepatitis, Hx Hiatal Hernia, Hx Ulcer Musculoskeltal Medical History: Reports Hx Arthritis, Reports Hx Musculoskeletal Deformity, Reports Hx Musculoskeletal Trauma Psychiatric Medical History: Denies: Hx Depression Infectious Medical History: Denies: Hx Hepatitis Past Surgical History: Reports: Hx Cholecystectomy, Hx Orthopedic Surgery - bilat Total Knee Replacement, left AKA. Denies: Hx Open Heart Surgery, Hx Pacemaker - Immunizations Hx Diphtheria, Pertussis, Tetanus Vaccination: No Hx Pneumococcal Vaccination: 09/13/13 Review of Systems - Review of Systems Constitutional: No symptoms reported EENT: No symptoms reported Cardiovascular: No symptoms reported Respiratory: No symptoms reported Gastrointestinal: No symptoms reported Genitourinary: No symptoms reported Male Genitourinary: No symptoms reported Musculoskeletal: No symptoms reported Skin: No symptoms reported Hematologic/Lymphatic: No symptoms reported Neurological/Psychological: No symptoms reported -: Yes All other systems reviewed and negative Physical Exam - Vital signs Vitals: Temp Pulse Resp BP Pulse Ox 97.9 F 80 20 129/72 H 99 04/11/18 20:36 12/22/17 20:36 12/22/17 20:36 12/22/17 20:36 12/22/17 20:36 Interpretation: Normal - General General appearance: Appears well, Alert - HEENT Head: Normocephalic, Atraumatic Eyes: Normal Pupils: PERRL - Respiratory Respiratory status: No respiratory distress Chest status: Nontender Breath sounds: Normal Chest palpation: Normal - Cardiovascular Rhythm: Regular Heart sounds: Normal auscultation Murmur: No - Abdominal Inspection: Normal Distension: No distension Bowel sounds: Normal Tenderness: Nontender Organomegaly: No organomegaly - Back Back: Normal, Nontender - Extremities General upper extremity: Normal inspection, Nontender, Normal color, Normal ROM , Normal temperature General lower extremity: Nontender, Normal color, Normal temperature. No: Rohini 's sign Knee: Other - Left BKA - Neurological Neuro grossly intact: Yes Cognition: Normal Orientation: AAOx4 Walt Coma Scale Eye Opening: Spontaneous [place] Coma Scale Verbal: Oriented [place] Coma Scale Motor: Obeys Commands [place] Coma Scale Total: 15 Speech: Normal Motor strength normal: LUE, RUE, LLE, RLE Sensory: Normal - Psychological Associated symptoms: Normal affect, Normal mood - Skin Skin Temperature: Warm Skin Moisture: Dry Skin Color: Normal Course - Re-evaluation Re-evalutation: 12/22/17 22:30 call to Poison Control, Spoke with carri Salvador, val Dilantin, recheck in am 12/22/17 23:10 Patient discussed with primary care provider, Dr. Fitzgerald who agrees to do an observation admission for further evaluation and treatment 12/23/17 01:29 - Vital Signs Vital signs: Temp Pulse Resp BP Pulse Ox 97.9 F 80 18 129/72 H 98 12/22/17 20:36 12/22/17 20:36 12/23/17 00:00 12/22/17 20:36 12/23/17 00:00 - Laboratory Result Diagrams: 12/22/17 21:11 12/22/17 21:11 Laboratory results interpreted by me: 12/22/17 12/22/17 12/22/17 21:11 21:11 21:11 RBC 2.99 L Hgb 9.6 L Hct 28.9 L RDW 14.6 H PT 15.9 H APTT 37.2 H Potassium 5.4 H Chloride 111 H Carbon Dioxide 21 L BUN 53 H Creatinine 2.25 H Est GFR ( Amer) 35 L Est GFR (Non-Af Amer) 29 L Albumin 3.4 L Phenytoin 12/22/17 21:24 RBC Hgb Hct RDW PT APTT Potassium Chloride Carbon Dioxide BUN Creatinine Est GFR ( Amer) Est GFR (Non-Af Amer) Albumin Phenytoin 25.4 H* Discharge - Discharge Clinical Impression: Acute on chronic renal insufficiency Dilantin toxicity Qualifiers: Encounter type: initial encounter Injury intent: accidental or unintentional Qualified Code(s): T42.0X1A - Poisoning by hydantoin derivatives, accidental ( unintentional), initial encounter Condition: Stable Disposition: ADMITTED OBSERVATION Admitting Provider: [facility] Unit Admitted: Telemetry
--- NOTE | 2017-12-22 22:53 | EKG REPORT ---
SEVERITY:- ABNORMAL ECG - ATRIAL FIBRILLATION LOW VOLTAGE IN FRONTAL LEADS CONSIDER ANTEROSEPTAL INFARCT BORDERLINE T ABNORMALITIES, DIFFUSE LEADS : Confirmed by: Jae De La Garza MD 22-Dec-2017 22:52:57
[2017-12-23 00:18] LABS: THYROID STIMULATING HORMONE 3.07 uIU/mL (0.47-4.68)
[2017-12-23 00:23] LABS: FREE T4 (FREE THYROXINE) 0.87 ng/dL (0.78-2.19)
[2017-12-23] MEDS: NORMAL SALINE 1000 ML 1,000 ML IV PRN (00:26)
[2017-12-23 02:41] LABS: APPEARANCE,URINE CLEAR; BILIRUBIN,URINE NEGATIVE (NEGATIVE); COLOR,URINE YELLOW; GLUCOSE, URINE NEGATIVE (NEGATIVE); KETONES,URINE NEGATIVE (NEGATIVE); LEUKOCYTE ESTERASE,URINE NEGATIVE (NEGATIVE); NITRITE,URINE NEGATIVE (NEGATIVE); PROTEIN,URINE 100 mg/dL (NEGATIVE); URINE SPECIFIC GRAVITY 1.014; UROBILINOGEN,URINE NEGATIVE mg/dL (<2.0)
[2017-12-23 06:57] LABS: ABSOLUTE BASOPHILS # (AUTO) 0.1 10^3/uL (0.0-0.2); ABSOLUTE EOSINOPHILS # (AUTO) 0.2 10^3/uL (0.0-0.6); ABSOLUTE LYMPHOCYTES (AUTO) 1.7 10^3/uL (0.5-4.7); ABSOLUTE MONOCYTES (AUTO) 0.8 10^3/uL (0.1-1.4); ABSOLUTE NEUT (AUTO) 2.4 10^3/uL (1.7-8.2); EOSINOPHILS % (AUTO) 3.1 % (0-6); HEMOGLOBIN 11.6 g/dL (13.5-17.0); LYMPHOCYTES % (AUTO) 33.1 % (13-45); MEAN CORPUSCULAR HEMOGLOBIN 32.1 pg (27.0-33.4); MEAN CORPUSCULAR HGB CONC 33.1 g/dL (32.0-36.0); MEAN CORPUSCULAR VOLUME 97 fl (80-97); MONOCYTES % (AUTO) 15.5 % (3-13); PLATELET COUNT 187 10^3/uL (150-450); RED BLOOD COUNT 3.61 10^6/uL (4.35-5.55); RED CELL DISTRIBUTION WIDTH 14.3 % (11.5-14.0); SEGMENTED NEUTROPHILS % (AUTO) 47.3 % (42-78); TOTAL CELLS COUNTED % (AUTO) 100 %; WHITE BLOOD COUNT 5.2 10^3/uL (4.0-10.5)
[2017-12-23 06:58] LABS: ALANINE AMINOTRANSFERASE 15 U/L (21-72); ALBUMIN 3.6 g/dL (3.5-5.0); ALKALINE PHOSPHATASE 96 U/L (38-126); ANION GAP 13 (5-19); ASPARTATE AMINO TRANSFERASE 34 U/L (17-59); BILIRUBIN,DIRECT 0.3 mg/dL (0.0-0.4); BILIRUBIN,TOTAL 0.3 mg/dL (0.2-1.3); BLOOD UREA NITROGEN 45 mg/dL (7-20); CALCIUM 8.8 mg/dL (8.4-10.2); CARBON DIOXIDE 20 mmol/L (22-30); CHLORIDE 114 mmol/L (98-107); GLUCOSE 73 mg/dL (75-110); POTASSIUM 5.3 mmol/L (3.6-5.0); TOTAL PROTEIN 7.3 g/dL (6.3-8.2)
--- NOTE | 2017-12-23 08:22 | RADIOLOGY REPORT (SQ) ---
EXAM DESCRIPTION: [employer] COMPLETED DATE/TIME: 12/23/2017 7:24 am REASON FOR STUDY: acute kidney injury COMPARISON: 12/14/2016 renal ultrasound TECHNIQUE: Dynamic and static grayscale images acquired of the kidneys and bladder and recorded on P ACS. Additional selected color Doppler and spectral images recorded. LIMITATIONS: None. FINDINGS: RIGHT KIDNEY: 9 cm in length with diffuse increased cortical echogenicity and mild cornelio ical thinning, stable. No solid or suspicious masses. No hydronephrosis. No calcifications. LEFT KIDNEY: 9 cm in length with diffuse increased cortical echogenicity and mild cortical thinning, stable. No solid or suspicious masses. No hydronephrosis. No calcifications. BLADDER: Along the posterior bladder wall, a 2 cm x 2 cm mass is present. This is worrisome for prim olivier bladder neoplasm. Bladder is distended, bilateral ureteral jets are identified. No hemorrhage s tones or debris in the bladder. OTHER FINDINGS: No other significant finding. IMPRESSION: Small echogenic kidneys from chronic medical renal disease, stable. 2 x 2 cm posterior bladder wall mass worrisome for primary bladder neoplasm. TECHNICAL DOCUMENTATION: JOB ID: [id number] [employer]- All Rights Reserved Reading location - IP/workstation name: [email or web address]
--- NOTE | 2017-12-23 20:06 | PDOC H&P ---
History of Present Illness Admission Date/PCP: 12/22/17 23:36 History of Present Illness: GRAYSON BURCH is a 72 year old male, He has a history of chronic obstructive pulmonary disease, enlarged prostate, chronic atrial fibrillation on chronic anticoagulant with Eliquis, peripheral vascular disease status post amputation of left leg below the knee, he was transferred from the [facility] to the emergency room for evaluation of acute kidney injury that was detected from routine blood work that was done in the [facility]. There was associated hyperkalemia, in the emergency room he was evaluated he was also found to have elevated Dilantin level. Poison control was consulted from the emergency room, hospital admission was advised and for patient to have serial Dilantin level done in the hospital setting. Patient is known to have chronic kidney disease with a baseline creatinine of 1.3-1.5, because of the acute kidney injury a kidney ultrasound was done as part of the evaluation for acute kidney injury, it showed diffuse increased cortical echogenicity of both kidneys, there are small and echogenic also found incidentally was a 2 x 2 centimeter posterior bladder wall mass worrisome for primary bladder neoplasm.A CAT scan of the abdomen with IV contrast is indicated to further define the lesion that was found on ultrasound of the kidney but contrast cannot presently be administered because of the acute kidney injury, patient will be hydrated with IV fluid to normalize kidney function and then urogram with IV contrast would be ordered. These findings was discussed with the patient, on direct questioning he suggested that he has been experiencing frequency of urination but he denies any hematuria Past Medical History Cardiac Medical History: Reports: Atrial Fibrillation, Hypertension, Peripheral Vascular Disease Pulmonary Medical History: Reports: Asthma, Chronic Obstructive Pulmonary Disease (COPD) Neurological Medical History: Reports: Seizures Endocrine Medical History: Reports: Diabetes Mellitus Type 2 Renal/ Medical History: Reports: Chronic Kidney Disease, Other - Chronic kidney disease stage III Musculoskeltal Medical History: Reports: Arthritis Hematology: Reports: Anemia Past Surgical History Past Surgical History: Reports: Cholecystectomy, Orthopedic Surgery - bilat Total Knee Replacement, left AKA Denies: Pacemaker Social History Smoking Status: Former Smoker Frequency of Alcohol Use: None Hx Recreational Drug Use: No Drugs: None Hx Prescription Drug Abuse: No Family History Family History: Reviewed & Not Pertinent Parental Family History Reviewed: Yes Children Family History Reviewed: Yes Sibling(s) Family History Reviewed.: Yes Medication/Allergy Home Medications: Atorvastatin Calcium [Lipitor 20 mg Tablet] 20 mg PO QHS 12/14/16 Docusate Sodium [Colace 100 mg Capsule] 100 mg PO DAILY 12/14/16 Finasteride [Proscar 5 mg Tablet] 5 mg PO DAILY 12/14/16 Polyethylene Glycol 3350 [Miralax Powder 17 gm/Packet] 1 packet PO DAILY Ranolazine [Ranexa] 500 mg PO Q12 12/14/16 Sennosides/Docusate 8.6-50 mg [Senna Plus Tablet] 2 tab PO DAILY 12/14/16 Apixaban [Eliquis 2.5 mg Tablet] 2.5 mg PO Q12 #0 tablet 12/17/16 Diltiazem HCl [Cardizem Cd 120 mg Capsule] 120 mg PO Q12 #0 cap.sr.24h 12/17/16 Phenytoin Sodium Extended [Dilantin 100 mg Capsule.er] 100 mg PO Q8 #0 capsule 12/17/16 Allergies/Adverse Reactions: No Known Allergies Allergy (Verified 12/22/17 20:15) Review of Systems Constitutional: ABSENT: chills, fever(s), headache(s), weight gain, weight loss Eyes: ABSENT: visual disturbances Ears: ABSENT: hearing changes Cardiovascular: ABSENT: chest pain, dyspnea on exertion, edema, orthropnea, palpitations Respiratory: ABSENT: cough, hemoptysis Gastrointestinal: ABSENT: abdominal pain, constipation, diarrhea, hematemesis, hematochezia, nausea, vomiting Genitourinary: PRESENT: dysuria, nocturia. ABSENT: as per HPI, difficulty urinating, hematuria, other Musculoskeletal: ABSENT: joint swelling Integumentary: ABSENT: rash, wounds Neurological: ABSENT: abnormal gait, abnormal speech, confusion, dizziness, focal weakness, syncope Psychiatric: ABSENT: anxiety, depression, homidical ideation, suicidal ideation Endocrine: ABSENT: cold intolerance, heat intolerance, menstrual abnormalities, polydipsia, polyuria Hematologic/Lymphatic: ABSENT: easy bleeding, easy bruising, lymphadenopathy Physical Exam Vital Signs: Temp Pulse Resp BP Pulse Ox 97.7 F 64 16 165/89 H 100 12/23/17 16:01 12/23/17 19:00 12/23/17 16:01 12/23/17 16:12/23/17 11:40 Intake & Output 12/22/17 12/23/17 12/24/17 06:59 06:59 06:59 Intake Total 428 1474 Output Total 200 475 Balance 228 999 Weight 55 kg General appearance: PRESENT: mild distress Head exam: PRESENT: atraumatic, normocephalic Eye exam: PRESENT: conjunctiva pink, EOMI, PERRLA Ear exam: PRESENT: normal external ear exam Mouth exam: PRESENT: moist, tongue midline Neck exam: PRESENT: full ROM. ABSENT: carotid bruit, JVD, lymphadenopathy, thyromegaly Cardiovascular exam: PRESENT: RRR, +S1, +S2 Pulses: PRESENT: normal dorsalis pedis pul, +2 pedal pulses bilateral Vascular exam: PRESENT: normal capillary refill GI/Abdominal exam: PRESENT: normal bowel sounds, soft Rectal exam: PRESENT: deferred Extremities exam: PRESENT: left AKA Neurological exam: PRESENT: alert Psychiatric exam: PRESENT: appropriate affect, normal mood Skin exam: PRESENT: dry, intact, warm Results Laboratory Results: 12/23/17 05:51 12/23/17 05:51 12/23/17 12/23/17 12/23/17 02:21 05:51 05:51 WBC 5.2 RBC 3.61 L Hgb 11.6 L Hct 35.0 L MCV 97 MCH 32.1 MCHC 33.1 RDW 14.3 H Plt Count 187 Seg Neutrophils % 47.3 Lymphocytes % 33.1 Monocytes % 15.5 H Eosinophils % 3.1 Basophils % 1.0 Absolute Neutrophils 2.4 Absolute Lymphocytes 1.7 Absolute Monocytes 0.8 Absolute Eosinophils 0.2 Absolute Basophils 0.1 Sodium 147.0 H Potassium 5.3 H Chloride 114 H Carbon Dioxide 20 L Anion Gap 13 BUN 45 H Creatinine 1.86 H Est GFR ( Amer) 43 L Est GFR (Non-Af Amer) 36 L Glucose 73 L Calcium 8.8 Total Bilirubin 0.3 AST 34 ALT 15 L Alkaline Phosphatase 96 Total Protein 7.3 Albumin 3.6 Urine Color YELLOW Urine Appearance CLEAR Urine pH 5.0 Ur Specific [place] 1.014 Urine Protein 100 H Urine Glucose (UA) NEGATIVE Urine Ketones NEGATIVE Urine Blood NEGATIVE Urine Nitrite NEGATIVE Ur Leukocyte Esterase NEGATIVE Urine WBC (Auto) 1 Urine RBC (Auto) 3 Impressions: Renal Ultrasound 12/23/17 00:00 IMPRESSION: Small echogenic kidneys from chronic medical renal disease, stable. 2 x 2 cm posterior bladder wall mass worrisome for primary bladder neoplasm. Assessment & Plan - Diagnosis (1) Acute kidney injury Is this a current diagnosis for this admission?: Yes Plan: There is most likely prerenal acute kidney injury, patient will be hydrated with IV fluid normal saline will continue to monitor kidney function closely, he has underlining chronic kidney disease with a superimposed acute kidney injury. The kidney ultrasound suggests nephrosclerosis, the kidneys are small in size. (2) Dilantin toxicity Qualifiers: Encounter type: initial encounter Injury intent: accidental or unintentional Qualified Code(s): T42.0X1A - Poisoning by hydantoin derivatives , accidental (unintentional), initial encounter (3) Chronic kidney disease Qualifiers: Chronic kidney disease stage: stage 3 (moderate) Qualified Code(s): N18.3 - Chronic kidney disease, stage 3 (moderate) Is this a current diagnosis for this admission?: Yes (4) Bladder mass Is this a current diagnosis for this admission?: Yes Plan: There is incidental finding of a bladder mass,, this mass needs to be further define with IV contrast CT scan was the kidney function is normalized, CT scan with IV contrast be requested, patient may need cystoscopy at some point (5) Chronic atrial fibrillation Is this a current diagnosis for this admission?: Yes (6) BPH (benign prostatic hyperplasia) Is this a current diagnosis for this admission?: Yes (7) COPD (chronic obstructive pulmonary disease) Qualifiers: COPD type: unspecified COPD Qualified Code(s): J44.9 - Chronic obstructive pulmonary disease, unspecified Is this a current diagnosis for this admission?: Yes
[2017-12-23] MEDS: RANOLAZINE 500 MG TAB.SR.12H PO SCH (23:41)
[2017-12-23] MEDS: APIXABAN 2.5 MG TABLET PO SCH (23:41)
[2017-12-23] MEDS: DILTIAZEM HCL 120 MG CAP.SR.24H PO SCH (23:41)
[2017-12-23] MEDS: ATORVASTATIN CALCIUM 20 MG TABLET PO SCH (23:42)
[2017-12-24 05:48] LABS: ABSOLUTE EOSINOPHILS # (AUTO) 0.1 10^3/uL (0.0-0.6); ABSOLUTE LYMPHOCYTES (AUTO) 1.3 10^3/uL (0.5-4.7); ABSOLUTE MONOCYTES (AUTO) 0.6 10^3/uL (0.1-1.4); ABSOLUTE NEUT (AUTO) 2.9 10^3/uL (1.7-8.2); BASOPHILS % (AUTO) 0.7 % (0-2); EOSINOPHILS % (AUTO) 2.6 % (0-6); HEMATOCRIT 36.3 % (37.9-51.0); HEMOGLOBIN 11.8 g/dL (13.5-17.0); LYMPHOCYTES % (AUTO) 26.6 % (13-45); MEAN CORPUSCULAR HEMOGLOBIN 31.6 pg (27.0-33.4); MEAN CORPUSCULAR HGB CONC 32.5 g/dL (32.0-36.0); MEAN CORPUSCULAR VOLUME 97 fl (80-97); MONOCYTES % (AUTO) 11.3 % (3-13); PLATELET COUNT 164 10^3/uL (150-450); RED BLOOD COUNT 3.73 10^6/uL (4.35-5.55); RED CELL DISTRIBUTION WIDTH 14.4 % (11.5-14.0); SEGMENTED NEUTROPHILS % (AUTO) 58.8 % (42-78); TOTAL CELLS COUNTED % (AUTO) 100 %; WHITE BLOOD COUNT 4.9 10^3/uL (4.0-10.5)
[2017-12-24 06:00] LABS: ALANINE AMINOTRANSFERASE 20 U/L (21-72); ALBUMIN 3.2 g/dL (3.5-5.0); ALKALINE PHOSPHATASE 86 U/L (38-126); ANION GAP 8 (5-19); ASPARTATE AMINO TRANSFERASE 24 U/L (17-59); BILIRUBIN,DIRECT 0.2 mg/dL (0.0-0.4); BILIRUBIN,TOTAL 0.2 mg/dL (0.2-1.3); BLOOD UREA NITROGEN 34 mg/dL (7-20); CALCIUM 8.4 mg/dL (8.4-10.2); CARBON DIOXIDE 22 mmol/L (22-30); CHLORIDE 115 mmol/L (98-107); GLUCOSE 82 mg/dL (75-110); POTASSIUM 5.7 mmol/L (3.6-5.0); TOTAL PROTEIN 6.7 g/dL (6.3-8.2)
[2017-12-24] MEDS ORDERED: DEXTROSE 50%-WATER 25 GM/50 ML DISP.SYRIN IV ONE (08:01)
[2017-12-24] MEDS ORDERED: CALCIUM GLUCONATE 1000 MG/10 ML INJ IV ONE (08:01)
[2017-12-24] MEDS ORDERED: INSULIN REG, HUMAN 100 UNIT/ML 3 ML VIAL (PYX) IV ONE (08:02)
[2017-12-24] MEDS: RANOLAZINE 500 MG TAB.SR.12H PO SCH ×2 (09:47→22:05)
[2017-12-24] MEDS: SENNOSIDES/DOCUSATE 8.6-50 MG 1 EACH TABLET PO SCH (09:47)
[2017-12-24] MEDS: DILTIAZEM HCL 120 MG CAP.SR.24H PO SCH ×2 (09:48→22:04)
[2017-12-24] MEDS: FINASTERIDE 5 MG TABLET PO SCH (09:48)
[2017-12-24] MEDS: POLYETHYLENE GLYCOL 3350 POWDER 17 GM/1 PACKET PO SCH (09:48)
[2017-12-24] MEDS: APIXABAN 2.5 MG TABLET PO SCH ×2 (09:48→22:05)
[2017-12-24 21:38] LABS: ALANINE AMINOTRANSFERASE 13 U/L (21-72); ALBUMIN 2.8 g/dL (3.5-5.0); ALKALINE PHOSPHATASE 77 U/L (38-126); ANION GAP 9 (5-19); ASPARTATE AMINO TRANSFERASE 24 U/L (17-59); BILIRUBIN,DIRECT 0.2 mg/dL (0.0-0.4); BILIRUBIN,TOTAL 0.2 mg/dL (0.2-1.3); BLOOD UREA NITROGEN 29 mg/dL (7-20); CALCIUM 8.2 mg/dL (8.4-10.2); CARBON DIOXIDE 19 mmol/L (22-30); CHLORIDE 115 mmol/L (98-107); GLUCOSE 102 mg/dL (75-110); POTASSIUM 5.6 mmol/L (3.6-5.0); SODIUM 142.5 mmol/L (137-145)
--- NOTE | 2017-12-24 21:41 | PDOC PROGRESS REPORT ---
Subjective Progress Note for:: 12/24/17 Subjective:: Patient was admitted for the management of acute kidney injury, part of the management included ultrasound of the kidney, there was incidental finding of a bladder mass. The kidney injury is most likely prerenal acute kidney failure, the kidney function is responding to IV fluid treatment Reason For Visit: ACUTE KIDNEY INJURY, DILANTIN TOXICITY Physical Exam Vital Signs: Temp Pulse Resp BP Pulse Ox 98.6 F 89 15 115/64 97 12/24/17 18:00 12/24/17 18:00 12/24/17 18:00 12/24/17 18:00 12/24/17 18:00 Intake & Output 12/23/17 12/24/17 12/25/17 06:59 06:59 06:59 Intake Total 428 3708 1737 Output Total 200 1050 400 Balance 228 2658 1337 Weight 55 kg 61 kg General appearance: PRESENT: no acute distress Eye exam: PRESENT: PERRLA Respiratory exam: PRESENT: clear to auscultation kimberly Cardiovascular exam: PRESENT: +S1, +S2 GI/Abdominal exam: PRESENT: soft Neurological exam: PRESENT: alert, CN II-XII grossly intact Results Laboratory Results: 12/24/17 05:29 12/24/17 12/24/17 12/24/17 05:29 05:29 19:57 WBC 4.9 RBC 3.73 L Hgb 11.8 L Hct 36.3 L MCV 97 MCH 31.6 MCHC 32.5 RDW 14.4 H Plt Count 164 Seg Neutrophils % 58.8 Lymphocytes % 26.6 Monocytes % 11.3 Eosinophils % 2.6 Basophils % 0.7 Absolute Neutrophils 2.9 Absolute Lymphocytes 1.3 Absolute Monocytes 0.6 Absolute Eosinophils 0.1 Absolute Basophils 0.0 Sodium 145.0 Cancelled Potassium 5.7 H Cancelled Chloride 115 H Cancelled Carbon Dioxide 22 Cancelled Anion Gap 8 Cancelled BUN 34 H Cancelled Creatinine 1.37 H Cancelled Est GFR ( Amer) > 60 Cancelled Est GFR (Non-Af Amer) 51 L Cancelled Glucose 82 Cancelled Calcium 8.4 Cancelled Total Bilirubin 0.2 Cancelled AST 24 Cancelled ALT 20 L Cancelled Alkaline Phosphatase 86 Cancelled Total Protein 6.7 Cancelled Albumin 3.2 L Cancelled Impressions: Renal Ultrasound 12/23/17 00:00 IMPRESSION: Small echogenic kidneys from chronic medical renal disease, stable. 2 x 2 cm posterior bladder wall mass worrisome for primary bladder neoplasm. Assessment & Plan - Diagnosis (1) Acute kidney injury Is this a current diagnosis for this admission?: Yes (2) Dilantin toxicity Qualifiers: Encounter type: initial encounter Injury intent: accidental or unintentional Qualified Code(s): T42.0X1A - Poisoning by hydantoin derivatives , accidental (unintentional), initial encounter Is this a current diagnosis for this admission?: Yes (3) Chronic kidney disease Qualifiers: Chronic kidney disease stage: stage 3 (moderate) Qualified Code(s): N18.3 - Chronic kidney disease, stage 3 (moderate) Is this a current diagnosis for this admission?: Yes (4) Bladder mass Is this a current diagnosis for this admission?: Yes (5) Chronic atrial fibrillation Is this a current diagnosis for this admission?: Yes (6) BPH (benign prostatic hyperplasia) Is this a current diagnosis for this admission?: Yes (7) COPD (chronic obstructive pulmonary disease) Qualifiers: COPD type: unspecified COPD Qualified Code(s): J44.9 - Chronic obstructive pulmonary disease, unspecified Is this a current diagnosis for this admission?: Yes - Plan Summary Plan Summary: Continue hydration, scheduled for CT scan
[2017-12-24] MEDS: NORMAL SALINE 1000 ML 1,000 ML IV PRN (22:05)
[2017-12-24] MEDS: ATORVASTATIN CALCIUM 20 MG TABLET PO SCH (22:05)
[2017-12-25 05:55] LABS: ABSOLUTE BASOPHILS # (AUTO) 0.1 10^3/uL (0.0-0.2); ABSOLUTE EOSINOPHILS # (AUTO) 0.2 10^3/uL (0.0-0.6); ABSOLUTE LYMPHOCYTES (AUTO) 1.9 10^3/uL (0.5-4.7); ABSOLUTE MONOCYTES (AUTO) 1.1 10^3/uL (0.1-1.4); ABSOLUTE NEUT (AUTO) 4.6 10^3/uL (1.7-8.2); BASOPHILS % (AUTO) 0.7 % (0-2); EOSINOPHILS % (AUTO) 2.1 % (0-6); HEMATOCRIT 32.5 % (37.9-51.0); LYMPHOCYTES % (AUTO) 24.3 % (13-45); MEAN CORPUSCULAR HEMOGLOBIN 32.3 pg (27.0-33.4); MEAN CORPUSCULAR HGB CONC 33.7 g/dL (32.0-36.0); MEAN CORPUSCULAR VOLUME 96 fl (80-97); MONOCYTES % (AUTO) 14.5 % (3-13); PLATELET COUNT 202 10^3/uL (150-450); RED CELL DISTRIBUTION WIDTH 14.3 % (11.5-14.0); SEGMENTED NEUTROPHILS % (AUTO) 58.4 % (42-78); TOTAL CELLS COUNTED % (AUTO) 100 %; WHITE BLOOD COUNT 7.9 10^3/uL (4.0-10.5)
[2017-12-25 06:15] LABS: ALANINE AMINOTRANSFERASE 19 U/L (21-72); ALBUMIN 3.1 g/dL (3.5-5.0); ALKALINE PHOSPHATASE 84 U/L (38-126); ANION GAP 9 (5-19); ASPARTATE AMINO TRANSFERASE 27 U/L (17-59); BILIRUBIN,DIRECT 0.2 mg/dL (0.0-0.4); BILIRUBIN,TOTAL 0.2 mg/dL (0.2-1.3); BLOOD UREA NITROGEN 27 mg/dL (7-20); CALCIUM 8.3 mg/dL (8.4-10.2); CARBON DIOXIDE 21 mmol/L (22-30); CHLORIDE 115 mmol/L (98-107); GLUCOSE 83 mg/dL (75-110); SODIUM 144.9 mmol/L (137-145); TOTAL PROTEIN 6.7 g/dL (6.3-8.2)
[2017-12-25 06:22] LABS: POTASSIUM 5.6 mmol/L (3.6-5.0)
[2017-12-25] MEDS: SENNOSIDES/DOCUSATE 8.6-50 MG 1 EACH TABLET PO SCH (09:52)
[2017-12-25] MEDS: DILTIAZEM HCL 120 MG CAP.SR.24H PO SCH ×2 (09:52→23:29)
[2017-12-25] MEDS: RANOLAZINE 500 MG TAB.SR.12H PO SCH ×2 (09:52→23:28)
[2017-12-25] MEDS: POLYETHYLENE GLYCOL 3350 POWDER 17 GM/1 PACKET PO SCH (09:53)
[2017-12-25] MEDS: FINASTERIDE 5 MG TABLET PO SCH (09:53)
[2017-12-25] MEDS: APIXABAN 2.5 MG TABLET PO SCH ×2 (09:53→23:29)
[2017-12-25] MEDS ORDERED: SODIUM POLYSTYRENE SULFONATE 15 GM/60 ML PO ONE (13:30)
--- NOTE | 2017-12-25 13:51 | RADIOLOGY REPORT (SQ) ---
EXAM DESCRIPTION: CT ABD/PELVIS WITH IV ONLY COMPLETED DATE/TIME: 12/25/2017 1:32 pm REASON FOR STUDY: bladder mass R31.0 GROSS HEMATURIA COMPARISON: None. TECHNIQUE: CT scan of the abdomen and pelvis performed using helical scanning technique with dynamic intravenous contrast injection. No oral contrast. Images reviewed with lung, soft tissue, and bone windows. Reconstructed coronal and sagittal MPR images reviewed. Delayed images for evaluation of the urinary system also acquired. All images stored on PACS. All CT scanners at this facility use dose modulation, iterative reconstruction, and/or weight based d osing when appropriate to reduce radiation dose to as low as reasonably achievable (ALARA). [facility]: Dose Right [facility]: CareDose [facility]: Dose Right [facility]: Teradose 4D [facility]: [employer] CONTRAST TYPE AND DOSE: Information not provided RENAL FUNCTION: Creatinine of 1.13 RADIATION DOSE: CT Rad equipment meets quality standard of care and radiation dose reduction techniq ues were employed. CTDIvol: 5.7 - 7.6 mGy. DLP: 666 mGy-cm.. LIMITATIONS: Some patient motion FINDINGS: LOWER CHEST: There is a small left-sided pleural effusion present. Evaluation of lung par enchyma is limited by a respiratory motion. LIVER: Normal size. No masses. No dilated ducts. SPLEEN: Normal size. No focal lesions. PANCREAS: No masses. No significant calcifications. No adjacent inflammation or peripancreatic fluid collections. Pancreatic duct not dilated. GALLBLADDER: The gallbladder is markedly contracted and only partially visualized. ADRENAL GLANDS: No significant masses or asymmetry. RIGHT KIDNEY AND URETER: No solid masses. Calcifications noted throughout the kidney, likely vascul ar in nature. No hydronephrosis or hydroureter. LEFT KIDNEY AND URETER: No solid masses. Calcifications noted throughout the kidney, likely vascula r in nature. No hydronephrosis or hydroureter. AORTA AND VESSELS: Diffuse aortoiliac calcifications. No aneurysm. RETROPERITONEUM: No retroperitoneal adenopathy, hemorrhage or masses. BOWEL AND PERITONEAL CAVITY: Limited evaluation of the bowel secondary to paucity of intra-abdominal fat as well as moderate to heavy stool burden. There is some free fluid noted within the abdomen and pelvis. APPENDIX: Not visualized. PELVIS: Some free fluid noted in the pelvis. ABDOMINAL WALL: No masses. No hernias. BONES: Diffuse degenerative changes without aggressive appearing bony lesion OTHER: No other significant finding. IMPRESSION: 1. Multiple calcifications within the kidneys, likely vascular in nature. 2. No definite source for patient's gross hematuria. 3. Small amount of free fluid noted within the abdomen and pelvis. 4. Chronic changes as above TECHNICAL DOCUMENTATION: JOB ID: [id number] Quality ID # [id number]: Final reports with documentation of one or more dose reduction techniques (e.g., Au tomated exposure control, adjustment of the mA and/or kV according to patient size, use of iterative reconstruction technique) 2010 [employer]- All Rights Reserved Reading location - IP/workstation name: [email or web address]
[2017-12-25] MEDS: NORMAL SALINE 1000 ML 1,000 ML IV PRN (17:45)
[2017-12-25] MEDS: SODIUM POLYSTYRENE SULFONATE 15 GM/60 ML PO SCH ×2 (17:45→23:29)
--- NOTE | 2017-12-25 19:32 | PDOC PROGRESS REPORT ---
Subjective Progress Note for:: 12/25/17 Subjective:: Patient was seen by the bedside, a CAT scan of the abdomen and pelvis with IV contrast was done, it was negative for any acute pathology. It did not demonstrate any mass in the urinary bladder that was suggested with ultrasound of the kidney He will continue IV hydration for the next 24 hours to prevent contrast induced nephropathy Reason For Visit: ACUTE KIDNEY INJURY,DILANTIN TOXICITY,BLADDER MAS Physical Exam Vital Signs: Temp Pulse Resp BP Pulse Ox 99.2 F 89 16 143/74 H 100 12/25/17 16:08 12/25/17 16:08 12/25/17 16:08 12/25/17 16:08 12/25/17 16:08 Intake & Output 12/24/17 12/25/17 12/26/17 06:59 06:59 06:59 Intake Total 1337 Balance 1337 General appearance: PRESENT: no acute distress Eye exam: PRESENT: PERRLA Respiratory exam: PRESENT: clear to auscultation kimberly Cardiovascular exam: PRESENT: +S1, +S2 GI/Abdominal exam: PRESENT: soft Neurological exam: PRESENT: alert Results Impressions: Renal Ultrasound 12/23/17 00:00 IMPRESSION: Small echogenic kidneys from chronic medical renal disease, stable. 2 x 2 cm posterior bladder wall mass worrisome for primary bladder neoplasm. Abdomen/Pelvis CT 12/25/17 00:00 IMPRESSION: 1. Multiple calcifications within the kidneys, likely vascular in nature. 2. No definite source for patient's gross hematuria. 3. Small amount of free fluid noted within the abdomen and pelvis. 4. Chronic changes as above Assessment & Plan - Diagnosis (1) Acute kidney injury Is this a current diagnosis for this admission?: Yes (2) Dilantin toxicity Qualifiers: Encounter type: initial encounter Injury intent: accidental or unintentional Qualified Code(s): T42.0X1A - Poisoning by hydantoin derivatives , accidental (unintentional), initial encounter Is this a current diagnosis for this admission?: Yes (3) Chronic kidney disease Qualifiers: Chronic kidney disease stage: stage 3 (moderate) Qualified Code(s): N18.3 - Chronic kidney disease, stage 3 (moderate) Is this a current diagnosis for this admission?: Yes (4) Bladder mass Is this a current diagnosis for this admission?: Yes (5) Chronic atrial fibrillation Is this a current diagnosis for this admission?: Yes (6) BPH (benign prostatic hyperplasia) Is this a current diagnosis for this admission?: Yes (7) COPD (chronic obstructive pulmonary disease) Qualifiers: COPD type: unspecified COPD Qualified Code(s): J44.9 - Chronic obstructive pulmonary disease, unspecified Is this a current diagnosis for this admission?: Yes
[2017-12-25] MEDS: ATORVASTATIN CALCIUM 20 MG TABLET PO SCH (23:29)
[2017-12-26] MEDS: NORMAL SALINE 1000 ML 1,000 ML IV PRN (06:11)
[2017-12-26] MEDS: SODIUM POLYSTYRENE SULFONATE 15 GM/60 ML PO SCH ×2 (06:11→12:26)
[2017-12-26] MEDS ORDERED: NITROGLYCERIN/D5W 50 MG/250 ML RTUINJ IV ONE (08:44)
[2017-12-26 09:05] LABS: ALANINE AMINOTRANSFERASE 25 U/L (21-72); ALBUMIN 2.5 g/dL (3.5-5.0); ALKALINE PHOSPHATASE 71 U/L (38-126); ANION GAP 7 (5-19); ASPARTATE AMINO TRANSFERASE 27 U/L (17-59); BILIRUBIN,DIRECT 0.2 mg/dL (0.0-0.4); BILIRUBIN,TOTAL 0.2 mg/dL (0.2-1.3); BLOOD UREA NITROGEN 22 mg/dL (7-20); CALCIUM 8.2 mg/dL (8.4-10.2); CARBON DIOXIDE 20 mmol/L (22-30); CHLORIDE 117 mmol/L (98-107); GLUCOSE 95 mg/dL (75-110); POTASSIUM 4.5 mmol/L (3.6-5.0); SODIUM 144.4 mmol/L (137-145); TOTAL PROTEIN 5.8 g/dL (6.3-8.2)
--- NOTE | 2017-12-26 09:31 | RADIOLOGY REPORT (SQ) ---
EXAM DESCRIPTION: CT HEAD WITHOUT COMPLETED DATE/TIME: 12/26/2017 9:21 am REASON FOR STUDY: pt unresponsive R31.0 GROSS HEMATURIA COMPARISON: 02/04/2017 TECHNIQUE: Axial images acquired through the brain without intravenous contrast. Images reviewed wi th bone, brain and subdural windows. Images stored on PACS. All CT scanners at this facility use dose modulation, iterative reconstruction, and/or weight based d osing when appropriate to reduce radiation dose to as low as reasonably achievable (ALARA). [facility]: Dose Right [facility]: CareDose [facility]: Dose Right [facility]: Teradose 4D [facility]: [employer] RADIATION DOSE: CT Rad equipment meets quality standard of care and radiation dose reduction techniq ues were employed. CTDIvol: 53.2 mGy. DLP: 964 mGy-cm.mGy. LIMITATIONS: None. FINDINGS: VENTRICLES: Prominent. CEREBRUM: No masses. No hemorrhage. No midline shift. Unchanged appearance of large chronic right MCA territory infarction in small chronic left MCA territory infarction. Additional stable areas of low density in the white matter most likely due to chronic micro-vascular ischemic change. No eviden ce for acute infarction. CEREBELLUM: No masses. No hemorrhage. No alteration of density. No evidence for acute infarction. EXTRAAXIAL SPACES: Age-related involutional change. No fluid collections. No masses. ORBITS AND GLOBE: No intra- or extraconal masses. Normal contour of globe without masses. CALVARIUM: No fracture. PARANASAL SINUSES: No fluid or mucosal thickening. SOFT TISSUES: No mass or hematoma. OTHER: No other significant finding. IMPRESSION: NO CT EVIDENCE OF ACUTE ISCHEMIA, HEMORRHAGE, OR MASS LESION. 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 EVIDENCE OF ACUTE STROKE: NO. TECHNICAL DOCUMENTATION: JOB ID: [id number] Quality ID # [id number]: Final reports with documentation of one or more dose reduction techniques (e.g., Au tomated exposure control, adjustment of the mA and/or kV according to patient size, use of iterative reconstruction technique) 2010 [employer]- All Rights Reserved Reading location - IP/workstation name: [email or web address]
[2017-12-26] MEDS ORDERED: LEVETIRACETAM INJ/PF 500 MG/5 ML SDV IV ONE ×2 (10:11→10:30)
[2017-12-26] MEDS ORDERED: NITROGLYCERIN 50 MG/D5W 250 ML IV PRN (10:16)
[2017-12-26] MEDS: SENNOSIDES/DOCUSATE 8.6-50 MG 1 EACH TABLET PO SCH (10:41)
[2017-12-26] MEDS: POLYETHYLENE GLYCOL 3350 POWDER 17 GM/1 PACKET PO SCH (10:41)
[2017-12-26] MEDS ORDERED: LORAZEPAM INJ 2 MG/1 ML VIAL ONE (11:25)
[2017-12-26] MEDS ORDERED: LEVETIRACETAM 500 MG/NACL-ISO 500 MG/100 ML RTUPB IV ONE (11:30)
[2017-12-26] MEDS: FINASTERIDE 5 MG TABLET PO SCH (15:13)
[2017-12-26] MEDS: RANOLAZINE 500 MG TAB.SR.12H PO SCH (15:13)
[2017-12-26] MEDS: DILTIAZEM HCL 120 MG CAP.SR.24H PO SCH ×2 (15:13→23:19)
[2017-12-26] MEDS: APIXABAN 2.5 MG TABLET PO SCH ×2 (15:13→23:19)
--- NOTE | 2017-12-26 15:51 | PDOC PROGRESS REPORT ---
Subjective Progress Note for:: 12/26/17 Subjective:: Patient was found unresponsive this morning, a stat CT head negative for acute pathology, he has a history of seizure, when he was admitted he had Dilantin toxicity, the Dilantin is on hold because of that, he subsequently had witnessed seizure on the floor, he was given IV Keppra and also Ativan Reason For Visit: ACUTE KIDNEY INJURY,DILANTIN TOXICITY,BLADDER MAS Physical Exam Vital Signs: Temp Pulse Resp BP Pulse Ox 98.7 F 89 20 148/80 H 100 12/26/17 12:10 12/26/17 14:00 12/26/17 12:10 12/26/17 12:10 12/26/17 12:10 Intake & Output 12/25/17 12/26/17 12/27/17 06:59 06:59 06:59 Intake Total 3110 Balance 3110 Weight 60.2 kg General appearance: PRESENT: no acute distress Eye exam: PRESENT: PERRLA Respiratory exam: PRESENT: clear to auscultation kimberly Cardiovascular exam: PRESENT: +S1, +S2 GI/Abdominal exam: PRESENT: soft Neurological exam: PRESENT: altered Results Laboratory Results: 12/26/17 08:00 12/26/17 08:00 Sodium 144.4 Potassium 4.5 Chloride 117 H Carbon Dioxide 20 L Anion Gap 7 BUN 22 H Creatinine 1.13 Est GFR ( Amer) > 60 Est GFR (Non-Af Amer) > 60 Glucose 95 Calcium 8.2 L Total Bilirubin 0.2 AST 27 ALT 25 Alkaline Phosphatase 71 Total Protein 5.8 L Albumin 2.5 L Impressions: Renal Ultrasound 12/23/17 00:00 IMPRESSION: Small echogenic kidneys from chronic medical renal disease, stable. 2 x 2 cm posterior bladder wall mass worrisome for primary bladder neoplasm. Abdomen/Pelvis CT 12/25/17 00:00 IMPRESSION: 1. Multiple calcifications within the kidneys, likely vascular in nature. 2. No definite source for patient's gross hematuria. 3. Small amount of free fluid noted within the abdomen and pelvis. 4. Chronic changes as above Head CT 12/26/17 00:00 IMPRESSION: NO CT EVIDENCE OF ACUTE ISCHEMIA, HEMORRHAGE, OR MASS LESION. CHRONIC MICROVASCULAR ISCHEMIC DISEASE AND CHRONIC LARGE TERRITORY INFARCTIONS DETAILED ABOVE. EVIDENCE OF ACUTE STROKE: NO. Assessment & Plan - Diagnosis (1) Acute kidney injury Is this a current diagnosis for this admission?: Yes (2) Dilantin toxicity Qualifiers: Encounter type: initial encounter Injury intent: accidental or unintentional Qualified Code(s): T42.0X1A - Poisoning by hydantoin derivatives , accidental (unintentional), initial encounter Is this a current diagnosis for this admission?: Yes (3) Chronic kidney disease Qualifiers: Chronic kidney disease stage: stage 3 (moderate) Qualified Code(s): N18.3 - Chronic kidney disease, stage 3 (moderate) Is this a current diagnosis for this admission?: Yes (4) Chronic atrial fibrillation Is this a current diagnosis for this admission?: Yes (5) BPH (benign prostatic hyperplasia) Is this a current diagnosis for this admission?: Yes (6) COPD (chronic obstructive pulmonary disease) Qualifiers: COPD type: unspecified COPD Qualified Code(s): J44.9 - Chronic obstructive pulmonary disease, unspecified Is this a current diagnosis for this admission?: Yes (7) Status epilepticus Is this a current diagnosis for this admission?: Yes Plan: Status epilepticus, start Dilantin 500 mg p.o. 3 times a day
[2017-12-26] MEDS: PHENYTOIN SODIUM EXTENDED 100 MG CAPSULE PO SCH (23:19)
[2017-12-26] MEDS: ATORVASTATIN CALCIUM 20 MG TABLET PO SCH (23:19)
[2017-12-27] MEDS: APIXABAN 2.5 MG TABLET PO SCH ×2 (09:07→21:54)
[2017-12-27] MEDS: FINASTERIDE 5 MG TABLET PO SCH (09:07)
[2017-12-27] MEDS: DILTIAZEM HCL 120 MG CAP.SR.24H PO SCH ×2 (09:07→21:52)
[2017-12-27] MEDS: PHENYTOIN SODIUM EXTENDED 100 MG CAPSULE PO SCH ×2 (09:07→21:53)
[2017-12-27] MEDS: POLYETHYLENE GLYCOL 3350 POWDER 17 GM/1 PACKET PO SCH (09:08)
[2017-12-27] MEDS: SENNOSIDES/DOCUSATE 8.6-50 MG 1 EACH TABLET PO SCH (09:08)
[2017-12-27 09:53] LABS: ALANINE AMINOTRANSFERASE 31 U/L (21-72); ALBUMIN 3.7 g/dL (3.5-5.0); ALKALINE PHOSPHATASE 100 U/L (38-126); ANION GAP 14 (5-19); ASPARTATE AMINO TRANSFERASE 46 U/L (17-59); BILIRUBIN,DIRECT 0.4 mg/dL (0.0-0.4); BILIRUBIN,TOTAL 0.6 mg/dL (0.2-1.3); BLOOD UREA NITROGEN 21 mg/dL (7-20); CARBON DIOXIDE 20 mmol/L (22-30); CHLORIDE 113 mmol/L (98-107); GLUCOSE 147 mg/dL (75-110); POTASSIUM 3.9 mmol/L (3.6-5.0); SODIUM 147.4 mmol/L (137-145); TOTAL PROTEIN 7.8 g/dL (6.3-8.2)
[2017-12-27] MEDS: NORMAL SALINE 1000 ML 1,000 ML IV PRN ×2 (11:00→21:54)
[2017-12-27 11:24] LABS: ABSOLUTE LYMPHOCYTES (AUTO) 0.9 10^3/uL (0.5-4.7); ABSOLUTE MONOCYTES (AUTO) 0.7 10^3/uL (0.1-1.4); ABSOLUTE NEUT (AUTO) 4.9 10^3/uL (1.7-8.2); BASOPHILS % (AUTO) 0.7 % (0-2); EOSINOPHILS % (AUTO) 0.5 % (0-6); HEMATOCRIT 29.4 % (37.9-51.0); HEMOGLOBIN 9.6 g/dL (13.5-17.0); LYMPHOCYTES % (AUTO) 13.6 % (13-45); MEAN CORPUSCULAR HEMOGLOBIN 31.5 pg (27.0-33.4); MEAN CORPUSCULAR HGB CONC 32.8 g/dL (32.0-36.0); MEAN CORPUSCULAR VOLUME 96 fl (80-97); MONOCYTES % (AUTO) 10.9 % (3-13); PLATELET COUNT 234 10^3/uL (150-450); RED BLOOD COUNT 3.06 10^6/uL (4.35-5.55); SEGMENTED NEUTROPHILS % (AUTO) 74.3 % (42-78); TOTAL CELLS COUNTED % (AUTO) 100 %; WHITE BLOOD COUNT 6.6 10^3/uL (4.0-10.5)
[2017-12-27] MEDS: ACETAMINOPHEN 325 MG TABLET PO PRN (16:18)
[2017-12-27] MEDS ORDERED: DEXTROSE 40% GEL 15 GM TUBE PO PRN (16:19)
[2017-12-27] MEDS ORDERED: DEXTROSE 50%-WATER SYRINGE 12.5 GM/25 ML DOSE IV PRN (16:19)
[2017-12-27] MEDS ORDERED: GLUCAGON,HUMAN RECOMB 1 MG INJ IM PRN (16:19)
[2017-12-27] MEDS ORDERED: DEXTROSE 50%-WATER SYRINGE 25 GM/50 ML DOSE IV PRN (16:19)
[2017-12-27] MEDS ORDERED: DEXTROSE 40% GEL 15 GM TUBE X 2 PO PRN (16:19)
[2017-12-27] MEDS ORDERED: INSULIN LISPRO 100 UNIT/ML 3 ML VIAL SUBCUT ONE (17:30)
--- NOTE | 2017-12-27 21:24 | PDOC PROGRESS REPORT ---
Subjective Progress Note for:: 12/27/17 Subjective:: He was seen by the bedside he had witnessed seizure yesterday Reason For Visit: ACUTE KIDNEY INJURY,DILANTIN TOXICITY,BLADDER MAS Physical Exam Vital Signs: Temp Pulse Resp BP Pulse Ox 102.1 F H 96 18 143/71 H 100 12/27/17 14:59 12/27/17 14:59 12/27/17 14:59 12/27/17 14:59 12/27/17 14:59 Intake & Output 12/26/17 12/27/17 12/28/17 06:59 06:59 06:59 Intake Total 3110 2478 1450 Balance 3110 2478 1450 Weight 60.2 kg 61.2 kg General appearance: PRESENT: no acute distress Eye exam: PRESENT: PERRLA Respiratory exam: PRESENT: clear to auscultation kimberly Cardiovascular exam: PRESENT: +S1, +S2 GI/Abdominal exam: PRESENT: soft Neurological exam: PRESENT: alert Results Laboratory Results: 12/27/17 11:02 12/27/17 09:13 12/27/17 12/27/17 09:13 11:02 WBC 6.6 RBC 3.06 L Hgb 9.6 L Hct 29.4 L MCV 96 MCH 31.5 MCHC 32.8 RDW 14.0 Plt Count 234 Seg Neutrophils % 74.3 Lymphocytes % 13.6 Monocytes % 10.9 Eosinophils % 0.5 Basophils % 0.7 Absolute Neutrophils 4.9 Absolute Lymphocytes 0.9 Absolute Monocytes 0.7 Absolute Eosinophils 0.0 Absolute Basophils 0.0 Sodium 147.4 H Potassium 3.9 Chloride 113 H Carbon Dioxide 20 L Anion Gap 14 BUN 21 H Creatinine 1.08 Est GFR ( Amer) > 60 Est GFR (Non-Af Amer) > 60 Glucose 147 H Calcium 9.0 Total Bilirubin 0.6 AST 46 ALT 31 Alkaline Phosphatase 100 Total Protein 7.8 Albumin 3.7 Impressions: Renal Ultrasound 12/23/17 00:00 IMPRESSION: Small echogenic kidneys from chronic medical renal disease, stable. 2 x 2 cm posterior bladder wall mass worrisome for primary bladder neoplasm. Abdomen/Pelvis CT 12/25/17 00:00 IMPRESSION: 1. Multiple calcifications within the kidneys, likely vascular in nature. 2. No definite source for patient's gross hematuria. 3. Small amount of free fluid noted within the abdomen and pelvis. 4. Chronic changes as above Head CT 12/26/17 00:00 IMPRESSION: NO CT EVIDENCE OF ACUTE ISCHEMIA, HEMORRHAGE, OR MASS LESION. CHRONIC MICROVASCULAR ISCHEMIC DISEASE AND CHRONIC LARGE TERRITORY INFARCTIONS DETAILED ABOVE. EVIDENCE OF ACUTE STROKE: NO. Assessment & Plan - Diagnosis (1) Acute kidney injury Is this a current diagnosis for this admission?: Yes (2) Dilantin toxicity Qualifiers: Encounter type: initial encounter Injury intent: accidental or unintentional Qualified Code(s): T42.0X1A - Poisoning by hydantoin derivatives , accidental (unintentional), initial encounter Is this a current diagnosis for this admission?: Yes (3) Chronic kidney disease Qualifiers: Chronic kidney disease stage: stage 3 (moderate) Qualified Code(s): N18.3 - Chronic kidney disease, stage 3 (moderate) Is this a current diagnosis for this admission?: Yes (4) Chronic atrial fibrillation Is this a current diagnosis for this admission?: Yes (5) BPH (benign prostatic hyperplasia) Is this a current diagnosis for this admission?: Yes (6) COPD (chronic obstructive pulmonary disease) Qualifiers: COPD type: unspecified COPD Qualified Code(s): J44.9 - Chronic obstructive pulmonary disease, unspecified Is this a current diagnosis for this admission?: Yes (7) Status epilepticus Is this a current diagnosis for this admission?: Yes
[2017-12-27] MEDS: ATORVASTATIN CALCIUM 20 MG TABLET PO SCH (21:54)
[2017-12-28] MEDS: INSULIN LISPRO 100 UNIT/ML 3 ML VIAL SUBCUT SCH ×3 (07:28→15:58)
[2017-12-28] MEDS: POLYETHYLENE GLYCOL 3350 POWDER 17 GM/1 PACKET PO SCH (09:14)
[2017-12-28] MEDS: DILTIAZEM HCL 120 MG CAP.SR.24H PO SCH ×2 (09:14→22:08)
[2017-12-28] MEDS: FINASTERIDE 5 MG TABLET PO SCH (09:15)
[2017-12-28] MEDS: PHENYTOIN SODIUM EXTENDED 100 MG CAPSULE PO SCH ×2 (09:15→22:08)
[2017-12-28] MEDS: APIXABAN 2.5 MG TABLET PO SCH ×2 (09:16→22:08)
[2017-12-28] MEDS: SENNOSIDES/DOCUSATE 8.6-50 MG 1 EACH TABLET PO SCH (09:16)
[2017-12-28] MEDS: NORMAL SALINE 1000 ML 1,000 ML IV PRN (13:23)
[2017-12-28] MEDS: ACETAMINOPHEN 325 MG TABLET PO PRN (18:56)
--- NOTE | 2017-12-28 19:09 | RADIOLOGY REPORT (SQ) ---
EXAM DESCRIPTION: CHEST SINGLE VIEW COMPLETED DATE/TIME: 12/28/2017 6:52 pm REASON FOR STUDY: fever COMPARISON: CT 04/14/2017 radiograph 12/13/2016 EXAM PARAMETERS: NUMBER OF VIEWS: One view. TECHNIQUE: Single frontal radiographic view of the chest acquired. RADIATION DOSE: NA LIMITATIONS: None. FINDINGS: LUNGS AND PLEURA: There is a small left pleural effusion. The medial aspect the left blanka diaphragm is poorly defined. . MEDIASTINUM AND HILAR STRUCTURES: No masses. Contour normal. HEART AND VASCULAR STRUCTURES: Cardiomegaly. No oanh failure. BONES: No acute findings. HARDWARE: None in the chest. OTHER: No other significant finding. IMPRESSION: Cardiomegaly without CHF. Small left pleural effusion is suggested. Cannot exclude wesley ited left lower lobe pneumonia. TECHNICAL DOCUMENTATION: JOB ID: [id number] [employer]- All Rights Reserved Reading location - IP/workstation name: [email or web address]
[2017-12-28] MEDS: ATORVASTATIN CALCIUM 20 MG TABLET PO SCH (22:08)
--- NOTE | 2017-12-28 22:30 | PDOC PROGRESS REPORT ---
Subjective Progress Note for:: 12/28/17 Subjective:: He develop a fever with a high temperature today ,over the weekend he had a seizure, chest x-ray done could not rule out pneumonia, he probably aspirated when he had a seizure he will empirically be treated with IV antibiotic ertapenem it as a broad-spectrum coverage including anaerobes gram-positive and gram-negative organisms Reason For Visit: ACUTE KIDNEY INJURY,DILANTIN TOXICITY,BLADDER MAS Physical Exam Vital Signs: Temp Pulse Resp BP Pulse Ox 99.5 F 106 H 20 157/94 H 100 12/28/17 19:39 12/28/17 19:39 12/28/17 19:39 12/28/17 19:39 12/28/17 19:39 Intake & Output 12/27/17 12/28/17 12/29/17 06:59 06:59 06:59 Intake Total 2478 2950 1869 Output Total 240 Balance 2478 2950 1629 Weight 61.2 kg 65.8 kg General appearance: PRESENT: no acute distress Eye exam: PRESENT: PERRLA Respiratory exam: PRESENT: clear to auscultation kimberly Cardiovascular exam: PRESENT: +S1, +S2 GI/Abdominal exam: PRESENT: soft Neurological exam: PRESENT: alert Results Laboratory Results: 12/27/17 11:02 12/27/17 09:13 Impressions: Renal Ultrasound 12/23/17 00:00 IMPRESSION: Small echogenic kidneys from chronic medical renal disease, stable. 2 x 2 cm posterior bladder wall mass worrisome for primary bladder neoplasm. Abdomen/Pelvis CT 12/25/17 00:00 IMPRESSION: 1. Multiple calcifications within the kidneys, likely vascular in nature. 2. No definite source for patient's gross hematuria. 3. Small amount of free fluid noted within the abdomen and pelvis. 4. Chronic changes as above Head CT 12/26/17 00:00 IMPRESSION: NO CT EVIDENCE OF ACUTE ISCHEMIA, HEMORRHAGE, OR MASS LESION. CHRONIC MICROVASCULAR ISCHEMIC DISEASE AND CHRONIC LARGE TERRITORY INFARCTIONS DETAILED ABOVE. EVIDENCE OF ACUTE STROKE: NO. Chest X-Ray 12/28/17 00:00 IMPRESSION: Cardiomegaly without CHF. Small left pleural effusion is suggested. Cannot exclude limited left lower lobe pneumonia. Assessment & Plan - Diagnosis (1) Acute kidney injury Is this a current diagnosis for this admission?: Yes (2) Dilantin toxicity Qualifiers: Encounter type: initial encounter Injury intent: accidental or unintentional Qualified Code(s): T42.0X1A - Poisoning by hydantoin derivatives , accidental (unintentional), initial encounter Is this a current diagnosis for this admission?: Yes (3) Chronic kidney disease Qualifiers: Chronic kidney disease stage: stage 3 (moderate) Qualified Code(s): N18.3 - Chronic kidney disease, stage 3 (moderate) Is this a current diagnosis for this admission?: Yes (4) Chronic atrial fibrillation Is this a current diagnosis for this admission?: Yes (5) BPH (benign prostatic hyperplasia) Is this a current diagnosis for this admission?: Yes (6) COPD (chronic obstructive pulmonary disease) Qualifiers: COPD type: unspecified COPD Qualified Code(s): J44.9 - Chronic obstructive pulmonary disease, unspecified Is this a current diagnosis for this admission?: Yes (7) Status epilepticus Is this a current diagnosis for this admission?: Yes (8) Aspiration pneumonia Qualifiers: Aspiration pneumonia type: unspecified Laterality: unspecified laterality Lung location: unspecified part of lung Qualified Code(s): J69.0 - Pneumonitis due to inhalation of food and vomit Is this a current diagnosis for this admission?: Yes Plan: Start empiric IV antibiotic
[2017-12-28 22:39] LABS: HEMATOCRIT 26.6 % (37.9-51.0); MEAN CORPUSCULAR VOLUME 94 fl (80-97); PLATELET COUNT 236 10^3/uL (150-450); RED BLOOD COUNT 2.82 10^6/uL (4.35-5.55); RED CELL DISTRIBUTION WIDTH 13.6 % (11.5-14.0); WHITE BLOOD COUNT 8.6 10^3/uL (4.0-10.5)
[2017-12-28 22:54] LABS: ALANINE AMINOTRANSFERASE 57 U/L (21-72); ALBUMIN 2.7 g/dL (3.5-5.0); ALKALINE PHOSPHATASE 87 U/L (38-126); ANION GAP 11 (5-19); ASPARTATE AMINO TRANSFERASE 58 U/L (17-59); BILIRUBIN,DIRECT 0.2 mg/dL (0.0-0.4); BILIRUBIN,TOTAL 0.2 mg/dL (0.2-1.3); BLOOD UREA NITROGEN 26 mg/dL (7-20); CALCIUM 8.1 mg/dL (8.4-10.2); CARBON DIOXIDE 19 mmol/L (22-30); CHLORIDE 118 mmol/L (98-107); GLUCOSE 119 mg/dL (75-110); POTASSIUM 3.4 mmol/L (3.6-5.0); SODIUM 148.3 mmol/L (137-145); TOTAL PROTEIN 5.8 g/dL (6.3-8.2)
[2017-12-28 22:57] LABS: ABSOLUTE LYMPHOCYTES# (MANUAL) 1.1 10^3/uL (0.5-4.7); ABSOLUTE MONOCYTES # (MANUAL) 1.4 10^3/uL (0.1-1.4); ABSOLUTE NEUTROPHILS# (MANUAL) 6.1 10^3/uL (1.7-8.2); BASOPHILS % (MANUAL) 0 % (0-2); EOSINOPHILS % (MANUAL) 0 % (0-6); LYMPHOCYTES % (MANUAL) 12 % (13-45); MONOCYTES % (MANUAL) 16 % (3-13); SEGMENTED NEUTROPHILS % (MAN) 71 % (42-78); TOTAL CELLS COUNTED 100
[2017-12-28 22:59] LABS: OVALOCYTES SLIGHT; PLATELET COMMENT ADEQUATE; POIKILOCYTOSIS SLIGHT
[2017-12-28] MEDS ORDERED: ERTAPENEM SODIUM 1 GM in NORMAL SALINE 50 ML IV ONE (23:15)
[2017-12-28] MEDS ORDERED: ERTAPENEM SODIUM INJ 1 GM VIAL ONE (23:34)
[2017-12-29 07:04] LABS: HEMATOCRIT 26.2 % (37.9-51.0); HEMOGLOBIN 8.7 g/dL (13.5-17.0); MEAN CORPUSCULAR HEMOGLOBIN 31.6 pg (27.0-33.4); MEAN CORPUSCULAR HGB CONC 33.3 g/dL (32.0-36.0); MEAN CORPUSCULAR VOLUME 95 fl (80-97); PLATELET COUNT 219 10^3/uL (150-450); RED BLOOD COUNT 2.76 10^6/uL (4.35-5.55); RED CELL DISTRIBUTION WIDTH 13.7 % (11.5-14.0); WHITE BLOOD COUNT 8.5 10^3/uL (4.0-10.5)
[2017-12-29 07:09] LABS: ALANINE AMINOTRANSFERASE 46 U/L (21-72); ALBUMIN 2.8 g/dL (3.5-5.0); ALKALINE PHOSPHATASE 80 U/L (38-126); ANION GAP 10 (5-19); ASPARTATE AMINO TRANSFERASE 57 U/L (17-59); BILIRUBIN,DIRECT 0.3 mg/dL (0.0-0.4); BILIRUBIN,TOTAL 0.3 mg/dL (0.2-1.3); BLOOD UREA NITROGEN 32 mg/dL (7-20); CARBON DIOXIDE 21 mmol/L (22-30); CHLORIDE 119 mmol/L (98-107); GLUCOSE 92 mg/dL (75-110); POTASSIUM 3.4 mmol/L (3.6-5.0); SODIUM 150.2 mmol/L (137-145); TOTAL PROTEIN 6.1 g/dL (6.3-8.2)
[2017-12-29] MEDS: INSULIN LISPRO 100 UNIT/ML 3 ML VIAL SUBCUT SCH ×3 (07:45→16:37)
[2017-12-29 08:15] LABS: ABSOLUTE LYMPHOCYTES# (MANUAL) 2.1 10^3/uL (0.5-4.7); ABSOLUTE MONOCYTES # (MANUAL) 0.8 10^3/uL (0.1-1.4); ABSOLUTE NEUTROPHILS# (MANUAL) 5.4 10^3/uL (1.7-8.2); BASOPHILS % (MANUAL) 1 % (0-2); EOSINOPHILS % (MANUAL) 1 % (0-6); LYMPHOCYTES % (MANUAL) 25 % (13-45); MONOCYTES % (MANUAL) 9 % (3-13); SEGMENTED NEUTROPHILS % (MAN) 64 % (42-78); TOTAL CELLS COUNTED 100
[2017-12-29 08:16] LABS: HYPOCHROMASIA SLIGHT; PLATELET COMMENT ADEQUATE; TOXIC GRANULATION SLIGHT
[2017-12-29] MEDS: DILTIAZEM HCL 120 MG CAP.SR.24H PO SCH ×2 (09:25→22:09)
[2017-12-29] MEDS: PHENYTOIN SODIUM EXTENDED 100 MG CAPSULE PO SCH ×2 (09:26→22:09)
[2017-12-29] MEDS: FINASTERIDE 5 MG TABLET PO SCH (09:26)
[2017-12-29] MEDS: APIXABAN 2.5 MG TABLET PO SCH ×2 (09:26→22:10)
[2017-12-29] MEDS: SENNOSIDES/DOCUSATE 8.6-50 MG 1 EACH TABLET PO SCH (09:26)
[2017-12-29] MEDS: POLYETHYLENE GLYCOL 3350 POWDER 17 GM/1 PACKET PO SCH (09:30)
[2017-12-29] MEDS ORDERED: LORAZEPAM INJ 2 MG/1 ML VIAL ONE (10:32)
[2017-12-29] MEDS ORDERED: LORAZEPAM INJ 2 MG/1 ML VIAL IV ONE (11:00)
[2017-12-29] MEDS: NORMAL SALINE 1000 ML 1,000 ML IV PRN ×2 (11:27→22:10)
[2017-12-29] MEDS: ACETAMINOPHEN 325 MG TABLET PO PRN (18:56)
--- NOTE | 2017-12-29 20:53 | PDOC PROGRESS REPORT ---
Subjective Progress Note for:: 12/29/17 Subjective:: Patient had another episode of seizure todayPart of the indication for inpatient care was , Dilantin toxicity he used to be on Dilantin 100 mg 3 times a day but at that dose he was outside the therapeutic range the Dilantin dose was reduced to 100 mg p.o. every 12 hours but he had a seizure on this present dosage suggesting that the Dilantin 100 mg p.o. every 12 is not adequate to control his seizure he will be started on Keppra 1000 mg p.o. twice daily and the Dilantin be discontinued altogether. He has had a temperature 102 the source of the temperature is most likely on the dorsum of left hand and at the site of the IV access he has cellulitis/phlebitis of the dorsum of his left hand Reason For Visit: ACUTE KIDNEY INJURY,DILANTIN TOXICITY,BLADDER MAS Physical Exam Vital Signs: Temp Pulse Resp BP Pulse Ox 99.7 F 114 H 16 147/66 H 100 12/29/17 19:44 12/29/17 19:44 12/29/17 19:44 12/29/17 19:44 12/29/17 19:44 Intake & Output 12/28/17 12/29/17 12/30/17 06:59 06:59 06:59 Intake Total 2950 3319 1814 Output Total 340 200 Balance 2950 2979 1614 Weight 65.8 kg 69.8 kg General appearance: PRESENT: no acute distress Eye exam: PRESENT: PERRLA Respiratory exam: PRESENT: clear to auscultation kimberly Cardiovascular exam: PRESENT: +S1, +S2 Extremities exam: PRESENT: other - swelling ,celluitis of dorsum of the left hand Neurological exam: PRESENT: alert Results Laboratory Results: 12/29/17 06:09 12/29/17 06:09 12/28/17 12/28/17 12/29/17 18:10 18:10 06:09 WBC 8.6 8.5 RBC 2.82 L 2.76 L Hgb 9.0 L 8.7 L Hct 26.6 L 26.2 L MCV 94 95 MCH 32.0 31.6 MCHC 34.0 33.3 RDW 13.6 13.7 Plt Count 236 219 Seg Neutrophils % Not Reportable Not Reportable Lymphocytes % Not Reportable Not Reportable Monocytes % Not Reportable Not Reportable Eosinophils % Not Reportable Not Reportable Basophils % Not Reportable Not Reportable Absolute Neutrophils Not Reportable Not Reportable Absolute Lymphocytes Not Reportable Not Reportable Absolute Monocytes Not Reportable Not Reportable Absolute Eosinophils Not Reportable Not Reportable Absolute Basophils Not Reportable Not Reportable Sodium 148.3 H Potassium 3.4 L Chloride 118 H Carbon Dioxide 19 L Anion Gap 11 BUN 26 H Creatinine 1.36 H Est GFR ( Amer) > 60 Est GFR (Non-Af Amer) 51 L Glucose 119 H Calcium 8.1 L Total Bilirubin 0.2 AST 58 ALT 57 Alkaline Phosphatase 87 Total Protein 5.8 L Albumin 2.7 L 12/29/17 06:09 WBC RBC Hgb Hct MCV MCH MCHC RDW Plt Count Seg Neutrophils % Lymphocytes % Monocytes % Eosinophils % Basophils % Absolute Neutrophils Absolute Lymphocytes Absolute Monocytes Absolute Eosinophils Absolute Basophils Sodium 150.2 H Potassium 3.4 L Chloride 119 H Carbon Dioxide 21 L Anion Gap 10 BUN 32 H Creatinine 1.28 H Est GFR ( Amer) > 60 Est GFR (Non-Af Amer) 55 L Glucose 92 Calcium 8.0 L Total Bilirubin 0.3 AST 57 ALT 46 Alkaline Phosphatase 80 Total Protein 6.1 L Albumin 2.8 L Impressions: Renal Ultrasound 12/23/17 00:00 IMPRESSION: Small echogenic kidneys from chronic medical renal disease, stable. 2 x 2 cm posterior bladder wall mass worrisome for primary bladder neoplasm. Abdomen/Pelvis CT 12/25/17 00:00 IMPRESSION: 1. Multiple calcifications within the kidneys, likely vascular in nature. 2. No definite source for patient's gross hematuria. 3. Small amount of free fluid noted within the abdomen and pelvis. 4. Chronic changes as above Head CT 12/26/17 00:00 IMPRESSION: NO CT EVIDENCE OF ACUTE ISCHEMIA, HEMORRHAGE, OR MASS LESION. CHRONIC MICROVASCULAR ISCHEMIC DISEASE AND CHRONIC LARGE TERRITORY INFARCTIONS DETAILED ABOVE. EVIDENCE OF ACUTE STROKE: NO. Chest X-Ray 12/28/17 00:00 IMPRESSION: Cardiomegaly without CHF. Small left pleural effusion is suggested. Cannot exclude limited left lower lobe pneumonia. Assessment & Plan - Diagnosis (1) Acute kidney injury Is this a current diagnosis for this admission?: Yes (2) Dilantin toxicity Qualifiers: Encounter type: initial encounter Injury intent: accidental or unintentional Qualified Code(s): T42.0X1A - Poisoning by hydantoin derivatives , accidental (unintentional), initial encounter Is this a current diagnosis for this admission?: Yes (3) Chronic kidney disease Qualifiers: Chronic kidney disease stage: stage 3 (moderate) Qualified Code(s): N18.3 - Chronic kidney disease, stage 3 (moderate) Is this a current diagnosis for this admission?: Yes (4) Chronic atrial fibrillation Is this a current diagnosis for this admission?: Yes (5) BPH (benign prostatic hyperplasia) Is this a current diagnosis for this admission?: Yes (6) COPD (chronic obstructive pulmonary disease) Qualifiers: COPD type: unspecified COPD Qualified Code(s): J44.9 - Chronic obstructive pulmonary disease, unspecified Is this a current diagnosis for this admission?: Yes (7) Status epilepticus Is this a current diagnosis for this admission?: Yes Plan: Discontinue Dilantin start Keppra
[2017-12-29] MEDS ORDERED: ERTAPENEM SODIUM 1 GM in NORMAL SALINE 50 ML IV SCH (22:00)
[2017-12-29] MEDS: ATORVASTATIN CALCIUM 20 MG TABLET PO SCH (22:10)
[2017-12-29] MEDS: LEVETIRACETAM 500 MG TABLET PO SCH (22:10)
[2017-12-30] MEDS: INSULIN LISPRO 100 UNIT/ML 3 ML VIAL SUBCUT SCH (07:25)
[2017-12-30] MEDS: PHENYTOIN SODIUM EXTENDED 100 MG CAPSULE PO SCH (09:14)
[2017-12-30] MEDS: SENNOSIDES/DOCUSATE 8.6-50 MG 1 EACH TABLET PO SCH (09:14)
[2017-12-30] MEDS: APIXABAN 2.5 MG TABLET PO SCH (09:14)
[2017-12-30] MEDS: FINASTERIDE 5 MG TABLET PO SCH (09:15)
[2017-12-30] MEDS: DILTIAZEM HCL 120 MG CAP.SR.24H PO SCH (09:15)
[2017-12-30] MEDS: LEVETIRACETAM 500 MG TABLET PO SCH (09:15)
[2017-12-30] MEDS: POLYETHYLENE GLYCOL 3350 POWDER 17 GM/1 PACKET PO SCH (09:18)
[2017-12-30] MEDS ORDERED: INSULIN LISPRO 100 UNIT/ML 3 ML VIAL SUBCUT PRN (11:30)
[2017-12-30] MEDS: CLINDAMYCIN HCL 150 MG CAPSULE PO SCH (15:05)
[2017-12-30 18:48] LABS: ARTERIAL BLOOD BASE EXCESS -5.6 mmol/L; ARTERIAL BLOOD H2CO3 0.95 mmol/L (1.05-1.35); ARTERIAL BLOOD HCO3 18.7 mmol/L (20-26); ARTERIAL BLOOD PCO2 31.6 mmHg (35-45); ARTERIAL BLOOD PH 7.39 (7.35-7.45); ARTERIAL BLOOD PO2 91.1 mmHg (80-100); ARTERIAL BLOOD TOTAL CO2 19.7 mmol/L (23-27)
[2017-12-30 18:49] LABS: ARTERIAL BLOOD FIO2 2L
[2017-12-30 19:12] LABS: ABSOLUTE BASOPHILS # (AUTO) 0.1 10^3/uL (0.0-0.2); ABSOLUTE EOSINOPHILS # (AUTO) 0.1 10^3/uL (0.0-0.6); ABSOLUTE LYMPHOCYTES (AUTO) 1.4 10^3/uL (0.5-4.7); ABSOLUTE MONOCYTES (AUTO) 0.7 10^3/uL (0.1-1.4); ABSOLUTE NEUT (AUTO) 5.3 10^3/uL (1.7-8.2); BASOPHILS % (AUTO) 0.8 % (0-2); EOSINOPHILS % (AUTO) 1.2 % (0-6); HEMATOCRIT 23.9 % (37.9-51.0); HEMOGLOBIN 8.2 g/dL (13.5-17.0); LYMPHOCYTES % (AUTO) 18.3 % (13-45); MEAN CORPUSCULAR HEMOGLOBIN 32.3 pg (27.0-33.4); MEAN CORPUSCULAR HGB CONC 34.2 g/dL (32.0-36.0); MEAN CORPUSCULAR VOLUME 94 fl (80-97); MONOCYTES % (AUTO) 9.6 % (3-13); PLATELET COUNT 262 10^3/uL (150-450); RED BLOOD COUNT 2.53 10^6/uL (4.35-5.55); RED CELL DISTRIBUTION WIDTH 13.8 % (11.5-14.0); SEGMENTED NEUTROPHILS % (AUTO) 70.1 % (42-78); TOTAL CELLS COUNTED % (AUTO) 100 %; WHITE BLOOD COUNT 7.6 10^3/uL (4.0-10.5)
[2017-12-30 19:26] LABS: ALANINE AMINOTRANSFERASE 75 U/L (21-72); ALBUMIN 2.5 g/dL (3.5-5.0); ALKALINE PHOSPHATASE 86 U/L (38-126); ANION GAP 11 (5-19); ASPARTATE AMINO TRANSFERASE 74 U/L (17-59); BILIRUBIN,DIRECT 0.1 mg/dL (0.0-0.4); BILIRUBIN,TOTAL 0.1 mg/dL (0.2-1.3); BLOOD UREA NITROGEN 26 mg/dL (7-20); CALCIUM 8.2 mg/dL (8.4-10.2); CARBON DIOXIDE 20 mmol/L (22-30); CHLORIDE 117 mmol/L (98-107); CREATINE KINASE 132 U/L (55-170); GLUCOSE 143 mg/dL (75-110); POTASSIUM 3.5 mmol/L (3.6-5.0); SODIUM 148.4 mmol/L (137-145); TOTAL PROTEIN 5.5 g/dL (6.3-8.2)
--- NOTE | 2017-12-30 19:33 | RADIOLOGY REPORT (SQ) ---
EXAM DESCRIPTION: CHEST SINGLE VIEW COMPLETED DATE/TIME: 12/30/2017 7:00 pm REASON FOR STUDY: pneumonia COMPARISON: 12/28/2017. EXAM PARAMETERS: NUMBER OF VIEWS: One view. TECHNIQUE: Single frontal radiographic view of the chest acquired. RADIATION DOSE: NA LIMITATIONS: None. FINDINGS: LUNGS AND PLEURA: Faint basilar atelectasis. Possible small pleural effusions. MEDIASTINUM AND HILAR STRUCTURES: No masses. Contour normal. HEART AND VASCULAR STRUCTURES: Mild cardiomegaly. Normal vasculature. BONES: No acute findings. HARDWARE: None in the chest. OTHER: No other significant finding. IMPRESSION: MILD CARDIOMEGALY. FAINT BASILAR ATELECTASIS AND POSSIBLE SMALL PLEURAL EFFUSIONS. TECHNICAL DOCUMENTATION: JOB ID: [id number] [employer]- All Rights Reserved Reading location - IP/workstation name: [email or web address]
[2017-12-30 19:47] LABS: CREATINE KINASE MB 1.19 ng/mL (<4.55)
[2017-12-30 19:51] LABS: TROPONIN I 0.05 ng/mL
[2017-12-30] MEDS: IPRATROPIUM/ALBUTEROL 0.5-2.5 MG/3 ML AMPUL NEB SCH ×2 (20:28→22:20)
[2017-12-30] MEDS ORDERED: POTASSIUM CHLORIDE 10 MEQ TABLET.SA PO ONE (20:34)
[2017-12-30] MEDS ORDERED: FUROSEMIDE INJ/PF 40 MG/4 ML SDV IV ONE (20:34)
[2017-12-30] MEDS ORDERED: LIDOCAINE 1% INJ-PF (10 MG/ML) 30 ML SDV ONE (21:39)
[2017-12-30] MEDS ORDERED: LORAZEPAM INJ 2 MG/1 ML VIAL ONE ×2 (22:00→22:34)
[2017-12-30] MEDS ORDERED: LORAZEPAM INJ 2 MG/1 ML VIAL IM ONE ×2 (22:15→22:45)
--- NOTE | 2017-12-30 22:42 | PDOC PROGRESS REPORT ---
Subjective Progress Note for:: 12/30/17 Subjective:: Patient noted to be short of breath today using accessory muscle breathing with intercostal muscle recession, BNP elevated Reason For Visit: ACUTE KIDNEY INJURY,DILANTIN TOXICITY,BLADDER MAS Physical Exam Vital Signs: Temp Pulse Resp BP Pulse Ox 99.6 F 101 H 18 139/73 H 100 12/30/17 19:50 12/30/17 22:20 12/30/17 22:20 12/30/17 19:50 12/30/17 19:50 Intake & Output 12/29/17 12/30/17 12/31/17 06:59 06:59 06:59 Intake Total 3319 3264 1128 Output Total 340 1000 275 Balance 2979 2264 853 Weight 69.8 kg 69.8 kg General appearance: PRESENT: mild distress Eye exam: PRESENT: PERRLA Respiratory exam: PRESENT: accessory muscle use, rhonchi Cardiovascular exam: PRESENT: +S1, +S2 GI/Abdominal exam: PRESENT: soft Neurological exam: PRESENT: alert Results Laboratory Results: 12/30/17 19:00 12/30/17 19:00 12/30/17 12/30/17 12/30/17 18:30 19:00 19:00 WBC 7.6 RBC 2.53 L Hgb 8.2 L Hct 23.9 L MCV 94 MCH 32.3 MCHC 34.2 RDW 13.8 Plt Count 262 Seg Neutrophils % 70.1 Lymphocytes % 18.3 Monocytes % 9.6 Eosinophils % 1.2 Basophils % 0.8 Absolute Neutrophils 5.3 Absolute Lymphocytes 1.4 Absolute Monocytes 0.7 Absolute Eosinophils 0.1 Absolute Basophils 0.1 Carbonic Acid 0.95 L HCO3/H2CO3 Ratio 19:1 ABG pH 7.39 ABG pCO2 31.6 L ABG pO2 91.1 ABG HCO3 18.7 L ABG O2 Saturation 97.0 ABG Base Excess -5.6 FiO2 2L Sodium 148.4 H Potassium 3.5 L Chloride 117 H Carbon Dioxide 20 L Anion Gap 11 BUN 26 H Creatinine 1.13 Est GFR ( Amer) > 60 Est GFR (Non-Af Amer) > 60 Glucose 143 H Calcium 8.2 L Total Bilirubin 0.1 L AST 74 H ALT 75 H Alkaline Phosphatase 86 Total Protein 5.5 L Albumin 2.5 L 12/29/17 01:40 Clean Catch Midstream Urine Culture - Final Mixed Urogenital Ameena 12/30/17 12/30/17 19:00 19:00 Creatine Kinase 132 CK-MB (CK-2) 1.19 Troponin I 0.050 NT-Pro-B Natriuret Pep 9930 H Impressions: Renal Ultrasound 12/23/17 00:00 IMPRESSION: Small echogenic kidneys from chronic medical renal disease, stable. 2 x 2 cm posterior bladder wall mass worrisome for primary bladder neoplasm. Abdomen/Pelvis CT 12/25/17 00:00 IMPRESSION: 1. Multiple calcifications within the kidneys, likely vascular in nature. 2. No definite source for patient's gross hematuria. 3. Small amount of free fluid noted within the abdomen and pelvis. 4. Chronic changes as above Head CT 12/26/17 00:00 IMPRESSION: NO CT EVIDENCE OF ACUTE ISCHEMIA, HEMORRHAGE, OR MASS LESION. CHRONIC MICROVASCULAR ISCHEMIC DISEASE AND CHRONIC LARGE TERRITORY INFARCTIONS DETAILED ABOVE. EVIDENCE OF ACUTE STROKE: NO. Chest X-Ray 12/30/17 00:00 IMPRESSION: MILD CARDIOMEGALY. FAINT BASILAR ATELECTASIS AND POSSIBLE SMALL PLEURAL EFFUSIONS. Assessment & Plan - Diagnosis (1) Acute kidney injury Is this a current diagnosis for this admission?: Yes (2) Dilantin toxicity Qualifiers: Encounter type: initial encounter Injury intent: accidental or unintentional Qualified Code(s): T42.0X1A - Poisoning by hydantoin derivatives , accidental (unintentional), initial encounter Is this a current diagnosis for this admission?: Yes (3) Chronic kidney disease Qualifiers: Chronic kidney disease stage: stage 3 (moderate) Qualified Code(s): N18.3 - Chronic kidney disease, stage 3 (moderate) Is this a current diagnosis for this admission?: Yes (4) Chronic atrial fibrillation Is this a current diagnosis for this admission?: Yes (5) BPH (benign prostatic hyperplasia) Is this a current diagnosis for this admission?: Yes (6) COPD (chronic obstructive pulmonary disease) Qualifiers: COPD type: unspecified COPD Qualified Code(s): J44.9 - Chronic obstructive pulmonary disease, unspecified Is this a current diagnosis for this admission?: Yes (7) Status epilepticus Is this a current diagnosis for this admission?: Yes (8) Cellulitis of hand, left Is this a current diagnosis for this admission?: Yes (9) Respiratory distress Is this a current diagnosis for this admission?: Yes Plan: Differential diagnosis includes CHF, pneumonia, COPD, anemia, ABG was done
[2017-12-31] MEDS: IPRATROPIUM/ALBUTEROL 0.5-2.5 MG/3 ML AMPUL NEB SCH ×8 (00:23→14:00)
--- NOTE | 2017-12-31 00:35 | RADIOLOGY REPORT (SQ) ---
EXAM DESCRIPTION: CHEST SINGLE VIEW CLINICAL HISTORY: confirm placement for central line COMPARISON: None. FINDINGS: Single frontal view of the chest. Left IJ central venous catheter with tip over the expected region of the SVC. Atherosclerotic calcification aortic arch. Cardiomegaly. Low lung volumes. Small right pleural effusion and right basilar opacity. No displaced rib fractures identified. Upper abdominal soft tissues are unremarkable. IMPRESSION: 1. Small right pleural effusion with likely underlying right basilar atelectasis or consolidation. 2. Left IJ central venous catheter tip projecting over the SVC.
[2017-12-31] MEDS ORDERED: FUROSEMIDE INJ/PF 40 MG/4 ML SDV ONE (01:04)
[2017-12-31] MEDS: ATORVASTATIN CALCIUM 20 MG TABLET PO SCH ×2 (01:12→21:52)
[2017-12-31] MEDS: LEVETIRACETAM 500 MG TABLET PO SCH ×3 (01:12→21:52)
[2017-12-31] MEDS: PHENYTOIN SODIUM EXTENDED 100 MG CAPSULE PO SCH ×3 (01:12→21:52)
[2017-12-31] MEDS: APIXABAN 2.5 MG TABLET PO SCH ×3 (01:12→21:52)
[2017-12-31] MEDS: DILTIAZEM HCL 120 MG CAP.SR.24H PO SCH ×2 (01:12→09:14)
[2017-12-31] MEDS: CLINDAMYCIN HCL 150 MG CAPSULE PO SCH ×4 (01:12→21:52)
[2017-12-31] MEDS ORDERED: POTASSIUM CHLORIDE 20 MEQ/50 ML RTU IV ONE (01:15)
[2017-12-31] MEDS ORDERED: LEVETIRACETAM 500 MG/NACL-ISO 500 MG/100 ML RTUPB IV ONE ×2 (01:15→03:45)
--- NOTE | 2017-12-31 06:25 | OPERATIVE REPORT E ---
Operative Report NAME: GRAYSON BURCH : 1945 AGE: 72Y DATE OF SURGERY: 12/30/2017 ROOM: 331 PREOPERATIVE DIAGNOSIS: POOR VEINS FOR IV ACCESS. POSTOPERATIVE DIAGNOSIS: POOR VEINS FOR IV ACCESS. OPERATION: Placement of left internal jugular vein, triple lumen catheter. Catheter placed with aid of ultrasound. SURGEON: JOSELITO CASTELLANOS M.D. ANESTHESIA: Local, MAC. INDICATION: This 72-year-old male with poor veins for IV access. Central line was ordered. DESCRIPTION OF PROCEDURE: Patient was given 2 mg of Ativan because he was a little agitated. This calmed him down for one-half hour. Patient was the placed in a slight Trendelenburg position and the left neck prepped and draped in the usual sterile fashion. With the use of ultrasound, the internal jugular vein was then identified and local anesthesia injected.IJV subsequently cannulated. Guidewire placed and directed towards the area of the superior vena cava. Needle was removed and puncture site enlarged and dilated. A triple lumen catheter was then inserted through the guidewire to a distance of about 17 cm. It was then anchored to the skin with 3-0 Silk. Next, all three ports aspirated blood easily and instilled saline easily. Biopatch placed at the insertion site after the catheter was anchored with a 3-0 Silk. A transparent sterile dressing was then placed over the Biopatch and catheter. A chest x-ray will be obtained for placement. Patient tolerated procedure well. DICTATING PHYSICIAN: JOSELITO CASTELLANOS M.D. [id number] PHY#: [id number] ID: [id number] JOB#: [id number] ACCT: [id number] cc:JOSELITO CASTELLANOS M.D. > MTDD
[2017-12-31 06:35] LABS: ABSOLUTE LYMPHOCYTES (AUTO) 0.8 10^3/uL (0.5-4.7); ABSOLUTE MONOCYTES (AUTO) 0.8 10^3/uL (0.1-1.4); BASOPHILS % (AUTO) 0.5 % (0-2); EOSINOPHILS % (AUTO) 0.2 % (0-6); HEMATOCRIT 22.6 % (37.9-51.0); LYMPHOCYTES % (AUTO) 12.4 % (13-45); MEAN CORPUSCULAR HEMOGLOBIN 31.9 pg (27.0-33.4); MEAN CORPUSCULAR HGB CONC 33.8 g/dL (32.0-36.0); MEAN CORPUSCULAR VOLUME 94 fl (80-97); MONOCYTES % (AUTO) 12.3 % (3-13); PLATELET COUNT 262 10^3/uL (150-450); RED CELL DISTRIBUTION WIDTH 13.9 % (11.5-14.0); SEGMENTED NEUTROPHILS % (AUTO) 74.6 % (42-78); TOTAL CELLS COUNTED % (AUTO) 100 %; WHITE BLOOD COUNT 6.6 10^3/uL (4.0-10.5)
[2017-12-31 06:38] LABS: HEMOGLOBIN 7.7 g/dL (13.5-17.0)
[2017-12-31 06:46] LABS: ANION GAP 10 (5-19); BLOOD UREA NITROGEN 27 mg/dL (7-20); CALCIUM 8.1 mg/dL (8.4-10.2); CARBON DIOXIDE 22 mmol/L (22-30); CHLORIDE 119 mmol/L (98-107); CREATINE KINASE 104 U/L (55-170); GLUCOSE 118 mg/dL (75-110); POTASSIUM 3.5 mmol/L (3.6-5.0); SODIUM 151.1 mmol/L (137-145)
[2017-12-31] MEDS ORDERED: DILTIAZEM HCL INJ 25 MG/5 ML VIAL IV ONE (07:15)
[2017-12-31 07:18] LABS: CREATINE KINASE MB 0.81 ng/mL (<4.55); TROPONIN I 0.057 ng/mL
[2017-12-31] MEDS: SENNOSIDES/DOCUSATE 8.6-50 MG 1 EACH TABLET PO SCH (09:22)
[2017-12-31] MEDS: FINASTERIDE 5 MG TABLET PO SCH (09:25)
[2017-12-31] MEDS: POLYETHYLENE GLYCOL 3350 POWDER 17 GM/1 PACKET PO SCH (09:30)
[2017-12-31] MEDS ORDERED: FUROSEMIDE INJ/PF 40 MG/4 ML SDV IV ONE (15:00)
[2017-12-31 17:50] LABS: CREATINE KINASE MB 0.78 ng/mL (<4.55); TROPONIN I 0.052 ng/mL
[2017-12-31] MEDS ORDERED: DILTIAZEM HCL/D5W 125 MG/125 ML RTUINJ IV PRN (18:28)
--- NOTE | 2017-12-31 18:47 | XCELERA REPORT ---
[address] [address] Transthoracic Echocardiogram Report Name: GRAYSON BURCH Age: 72 yrs Gender: Male : 1945 Patient Status: Inpatient Patient Location: [address] [place] [address] Study Date: 12/31/2017 02:51 PM Height: 69 in Weight: 153 lb BSA: 1.8 m2 Procedure: A complete two-dimensional transthoracic echocardiogram was performed (2D, M-mode, spectral and color flow Doppler). The study was technically difficult with many images being suboptimal in quality. Reason For Study: CHF Ordering Physician: TOMY CROCKER Performed By: Emma Valdivia Interpretation Summary Left ventricular systolic function is low normal. LV diastolic function could not be adequately assessed. There is mild concentric left ventricular hypertrophy. The left ventricle is grossly normal size. Regional wall motion abnormalities cannot be excluded due to limited visualization. The right ventricular systolic function is normal. The right ventricle is grossly normal size. The left atrial size is normal. The right atrium is normal in size There is a mild amount of mitral regurgitation There is no mitral valve stenosis. There is a trace amount of aortic regurgitation There is no aortic valve stenosis There is a trace to mild amount of tricuspid regurgitation There is mild pulmonary hypertension by echo Right ventricular systolic pressure is estimated to be elevated at 30- 40mmHg. The aortic root is not well visualized but is probably normal size. The inferior vena cava appeared normal and decreased < 50% with respiration (RAP 10-15 mmHg) Minimal pericardial effusion. MMode/2D Measurements & Calculations RVDd: 1.9 cm LVIDd: 4.5 cm FS: 35.7 % Ao root diam: 2.9 cm IVSd: 1.1 cm LVIDs: 2.9 cm EDV(Teich): LVPWd: 1.0 cm 93.0 ml Ao root area: 6.7 cm2 ESV(Teich): LA dimension: 3.1 cm 32.2 ml EF(Teich): 65.4 % LA A2Cs: 27.0 cm2LA A4Cs: LA length: 6.4 cmLA Vol Index (BP): 32.5 cm2 62.9 ml/m2 LA Volume: 116.0 ml Doppler Measurements & Calculations MV E max octavio: MV P1/2t max octavio: Ao V2 max: LV V1 max P.4 cm/sec 81.9 cm/sec 137.1 cm/sec 3.6 mmHg MV A max octavio: MV P1/2t: 47.3 msec Ao max PG: LV V1 max: 51.8 cm/sec 7.5 mmHg 95.3 cm/sec MV E/A: 1.6 MVA(P1/2t): 4.7 cm2 MV dec slope: 507.8 cm/sec2 MV dec time: 0.16 sec PA V2 max: TR max octavio: 77.5 cm/sec 257.9 cm/sec PA max PG: TR max P.6 mmHg 2.4 mmHg Left Ventricle The left ventricle is grossly normal size. There is mild concentric left ventricular hypertrophy. Left ventricular systolic function is low normal. LV diastolic function could not be adequately assessed. Regional wall motion abnormalities cannot be excluded due to limited visualization. Right Ventricle The right ventricle is grossly normal size. There is normal right ventricular wall thickness. The right ventricular systolic function is normal. Atria The right atrium is normal in size. The left atrial size is normal. Interarterial septum not well visualized and not well dopplered. Cannot comment on ASD/PFO presence. Mitral Valve The mitral valve is grossly normal. There is no mitral valve stenosis. There is a mild amount of mitral regurgitation. Aortic Valve The aortic valve is grossly normal. There is no aortic valve stenosis. There is a trace amount of aortic regurgitation. Tricuspid Valve The tricuspid valve is not well visualized, but is grossly normal. There is no tricuspid stenosis. There is a trace to mild amount of tricuspid regurgitation. There is mild pulmonary hypertension by echo. Right ventricular systolic pressure is estimated to be elevated at 30-40mmHg. Pulmonic Valve The pulmonic valve is not well visualized. Great Vessels The aortic root is not well visualized but is probably normal size. The inferior vena cava appeared normal and decreased < 50% with respiration (RAP 10-15 mmHg). Effusions Minimal pericardial effusion. : TOMY CROCKER > Brian Rodriguez
[2017-12-31 18:52] LABS: ABSOLUTE EOSINOPHILS # (AUTO) 0.1 10^3/uL (0.0-0.6); ABSOLUTE LYMPHOCYTES (AUTO) 1.1 10^3/uL (0.5-4.7); ABSOLUTE MONOCYTES (AUTO) 1.1 10^3/uL (0.1-1.4); ABSOLUTE NEUT (AUTO) 6.3 10^3/uL (1.7-8.2); BASOPHILS % (AUTO) 0.4 % (0-2); EOSINOPHILS % (AUTO) 0.8 % (0-6); HEMATOCRIT 29.4 % (37.9-51.0); LYMPHOCYTES % (AUTO) 13.1 % (13-45); MEAN CORPUSCULAR HEMOGLOBIN 30.3 pg (27.0-33.4); MEAN CORPUSCULAR HGB CONC 33.8 g/dL (32.0-36.0); MONOCYTES % (AUTO) 12.3 % (3-13); PLATELET COUNT 251 10^3/uL (150-450); RED BLOOD COUNT 3.28 10^6/uL (4.35-5.55); RED CELL DISTRIBUTION WIDTH 17.7 % (11.5-14.0); SEGMENTED NEUTROPHILS % (AUTO) 73.4 % (42-78); TOTAL CELLS COUNTED % (AUTO) 100 %; WHITE BLOOD COUNT 8.6 10^3/uL (4.0-10.5)
[2017-12-31 18:58] LABS: MEAN CORPUSCULAR VOLUME 90 fl (80-97)
[2017-12-31 18:59] LABS: HEMOGLOBIN 9.9 g/dL (13.5-17.0)
--- NOTE | 2017-12-31 23:22 | PDOC PROGRESS REPORT ---
Subjective Progress Note for:: 12/31/17 Subjective:: Patient was seen by the bedside, he has a history of chronic atrial fibrillation there was associated rapid ventricular response he had anemia requiring blood transfusion etiology is not clear, he is started on Cardizem infusion 2D echo was reviewed systolic function is low normal, diastolic function could not be assessed because of A. fib Reason For Visit: ACUTE KIDNEY INJURY,DILANTIN TOXICITY,BLADDER MAS Physical Exam Vital Signs: Temp Pulse Resp BP Pulse Ox 99.9 F 104 H 18 151/89 H 100 12/31/17 16:22 12/31/17 21:20 12/31/17 21:20 12/31/17 16:22 12/31/17 21:20 Intake & Output 12/30/17 12/31/17 01/01/18 06:59 06:59 06:59 Intake Total 3264 1228 1085 Output Total 1000 375 525 Balance 2264 853 560 Weight 69.8 kg 68.6 kg General appearance: PRESENT: no acute distress Eye exam: PRESENT: PERRLA Respiratory exam: PRESENT: rhonchi Cardiovascular exam: PRESENT: +S1, +S2, systolic murmur Neurological exam: PRESENT: alert Results Laboratory Results: 12/31/17 18:20 12/31/17 06:15 12/31/17 12/31/17 12/31/17 06:15 06:15 07:59 WBC 6.6 RBC 2.40 L Hgb 7.7 L Hct 22.6 L MCV 94 MCH 31.9 MCHC 33.8 RDW 13.9 Plt Count 262 Seg Neutrophils % 74.6 Lymphocytes % 12.4 L Monocytes % 12.3 Eosinophils % 0.2 Basophils % 0.5 Absolute Neutrophils 5.0 Absolute Lymphocytes 0.8 Absolute Monocytes 0.8 Absolute Eosinophils 0.0 Absolute Basophils 0.0 Sodium 151.1 H Potassium 3.5 L Chloride 119 H Carbon Dioxide 22 Anion Gap 10 BUN 27 H Creatinine 1.10 Est GFR ( Amer) > 60 Est GFR (Non-Af Amer) > 60 Glucose 118 H Calcium 8.1 L Blood Type A NEGATIVE Antibody Screen NEGATIVE 12/31/17 18:20 WBC 8.6 RBC 3.28 L Hgb 9.9 L D Hct 29.4 L MCV 90 D MCH 30.3 MCHC 33.8 RDW 17.7 H Plt Count 251 Seg Neutrophils % 73.4 Lymphocytes % 13.1 Monocytes % 12.3 Eosinophils % 0.8 Basophils % 0.4 Absolute Neutrophils 6.3 Absolute Lymphocytes 1.1 Absolute Monocytes 1.1 Absolute Eosinophils 0.1 Absolute Basophils 0.0 Sodium Potassium Chloride Carbon Dioxide Anion Gap BUN Creatinine Est GFR ( Amer) Est GFR (Non-Af Amer) Glucose Calcium Blood Type Antibody Screen 12/30/17 12/30/17 12/31/17 19:00 19:00 06:15 Creatine Kinase 132 Cancelled CK-MB (CK-2) 1.19 Troponin I 0.050 NT-Pro-B Natriuret Pep 9930 H 12/31/17 12/31/17 12/31/17 06:15 06:30 16:50 Creatine Kinase 104 108 CK-MB (CK-2) 0.81 Troponin I 0.057 NT-Pro-B Natriuret Pep 12/31/17 16:50 Creatine Kinase CK-MB (CK-2) 0.78 Troponin I 0.052 NT-Pro-B Natriuret Pep Impressions: Renal Ultrasound 12/23/17 00:00 IMPRESSION: Small echogenic kidneys from chronic medical renal disease, stable. 2 x 2 cm posterior bladder wall mass worrisome for primary bladder neoplasm. Abdomen/Pelvis CT 12/25/17 00:00 IMPRESSION: 1. Multiple calcifications within the kidneys, likely vascular in nature. 2. No definite source for patient's gross hematuria. 3. Small amount of free fluid noted within the abdomen and pelvis. 4. Chronic changes as above Head CT 12/26/17 00:00 IMPRESSION: NO CT EVIDENCE OF ACUTE ISCHEMIA, HEMORRHAGE, OR MASS LESION. CHRONIC MICROVASCULAR ISCHEMIC DISEASE AND CHRONIC LARGE TERRITORY INFARCTIONS DETAILED ABOVE. EVIDENCE OF ACUTE STROKE: NO. Chest X-Ray 12/31/17 00:00 IMPRESSION: 1. Small right pleural effusion with likely underlying right basilar atelectasis or consolidation. 2. Left IJ central venous catheter tip projecting over the SVC. Assessment & Plan - Diagnosis (1) Acute kidney injury Is this a current diagnosis for this admission?: Yes (2) Dilantin toxicity Qualifiers: Encounter type: initial encounter Injury intent: accidental or unintentional Qualified Code(s): T42.0X1A - Poisoning by hydantoin derivatives , accidental (unintentional), initial encounter Is this a current diagnosis for this admission?: Yes (3) Chronic kidney disease Qualifiers: Chronic kidney disease stage: stage 3 (moderate) Qualified Code(s): N18.3 - Chronic kidney disease, stage 3 (moderate) Is this a current diagnosis for this admission?: Yes (4) Chronic atrial fibrillation Is this a current diagnosis for this admission?: Yes (5) BPH (benign prostatic hyperplasia) Is this a current diagnosis for this admission?: Yes (6) COPD (chronic obstructive pulmonary disease) Qualifiers: COPD type: unspecified COPD Qualified Code(s): J44.9 - Chronic obstructive pulmonary disease, unspecified Is this a current diagnosis for this admission?: Yes (7) Status epilepticus Is this a current diagnosis for this admission?: Yes (8) Cellulitis of hand, left Is this a current diagnosis for this admission?: Yes (9) Anemia Qualifiers: Anemia type: unspecified type Qualified Code(s): D64.9 - Anemia, unspecified Is this a current diagnosis for this admission?: Yes Plan: Transfuse 2 units of packed red blood cells
[2018-01-01] MEDS: CLINDAMYCIN HCL 150 MG CAPSULE PO SCH ×3 (06:01→21:55)
[2018-01-01] MEDS: SENNOSIDES/DOCUSATE 8.6-50 MG 1 EACH TABLET PO SCH (09:49)
[2018-01-01] MEDS: PHENYTOIN SODIUM EXTENDED 100 MG CAPSULE PO SCH ×2 (09:49→21:57)
[2018-01-01] MEDS: LEVETIRACETAM 500 MG TABLET PO SCH ×2 (09:49→21:55)
[2018-01-01] MEDS: POLYETHYLENE GLYCOL 3350 POWDER 17 GM/1 PACKET PO SCH (09:50)
[2018-01-01] MEDS: APIXABAN 2.5 MG TABLET PO SCH ×2 (09:50→21:54)
[2018-01-01] MEDS: FINASTERIDE 5 MG TABLET PO SCH (09:50)
--- NOTE | 2018-01-01 11:10 | PDOC PROGRESS REPORT ---
Subjective Progress Note for:: 01/01/18 Subjective:: Patient was admitted because of acute renal failure and Dilantin toxicity with history of the chronic A. fib and a seizures disorders currently doing fair Dilantin was stopped and started on Keppra IV Patient is currently on a Cardizem drip and heart rate is currently doing well Also on Eliquis 2.5 mg p.o. twice a day Patient also received blood transfusions There is no blood loss seen per nursing staff Reason For Visit: ACUTE KIDNEY INJURY,DILANTIN TOXICITY,BLADDER MAS Physical Exam Vital Signs: Temp Pulse Resp BP Pulse Ox 98.4 F 79 20 160/89 H 100 01/01/18 07:57 01/01/18 09:12 01/01/18 07:57 01/01/18 09:12 01/01/18 07:57 Intake & Output 12/31/17 01/01/18 01/02/18 06:59 06:59 06:59 Intake Total 1228 1455 Output Total 375 725 Balance 853 730 Weight 68.6 kg 66.9 kg General appearance: PRESENT: no acute distress, thin Eye exam: PRESENT: PERRLA Mouth exam: PRESENT: neck supple Respiratory exam: PRESENT: clear to auscultation kimberyl Cardiovascular exam: PRESENT: +S1, +S2 GI/Abdominal exam: PRESENT: normal bowel sounds, soft. ABSENT: tenderness Extremities exam: ABSENT: pedal edema Neurological exam: PRESENT: alert, awake, oriented to person Skin exam: PRESENT: dry Results Laboratory Results: 12/31/17 18:20 12/31/17 06:15 12/31/17 12/31/17 07:59 18:20 WBC 8.6 RBC 3.28 L Hgb 9.9 L D Hct 29.4 L MCV 90 D MCH 30.3 MCHC 33.8 RDW 17.7 H Plt Count 251 Seg Neutrophils % 73.4 Lymphocytes % 13.1 Monocytes % 12.3 Eosinophils % 0.8 Basophils % 0.4 Absolute Neutrophils 6.3 Absolute Lymphocytes 1.1 Absolute Monocytes 1.1 Absolute Eosinophils 0.1 Absolute Basophils 0.0 Blood Type A NEGATIVE Antibody Screen NEGATIVE 12/30/17 12/30/17 12/31/17 19:00 19:00 06:15 Creatine Kinase 132 Cancelled CK-MB (CK-2) 1.19 Troponin I 0.050 NT-Pro-B Natriuret Pep 9930 H 12/31/17 12/31/17 12/31/17 06:15 06:30 16:50 Creatine Kinase 104 108 CK-MB (CK-2) 0.81 Troponin I 0.057 NT-Pro-B Natriuret Pep 12/31/17 16:50 Creatine Kinase CK-MB (CK-2) 0.78 Troponin I 0.052 NT-Pro-B Natriuret Pep Impressions: Renal Ultrasound 12/23/17 00:00 IMPRESSION: Small echogenic kidneys from chronic medical renal disease, stable. 2 x 2 cm posterior bladder wall mass worrisome for primary bladder neoplasm. Abdomen/Pelvis CT 12/25/17 00:00 IMPRESSION: 1. Multiple calcifications within the kidneys, likely vascular in nature. 2. No definite source for patient's gross hematuria. 3. Small amount of free fluid noted within the abdomen and pelvis. 4. Chronic changes as above Head CT 12/26/17 00:00 IMPRESSION: NO CT EVIDENCE OF ACUTE ISCHEMIA, HEMORRHAGE, OR MASS LESION. CHRONIC MICROVASCULAR ISCHEMIC DISEASE AND CHRONIC LARGE TERRITORY INFARCTIONS DETAILED ABOVE. EVIDENCE OF ACUTE STROKE: NO. Chest X-Ray 12/31/17 00:00 IMPRESSION: 1. Small right pleural effusion with likely underlying right basilar atelectasis or consolidation. 2. Left IJ central venous catheter tip projecting over the SVC. Assessment & Plan - Diagnosis (1) Acute on chronic renal insufficiency Is this a current diagnosis for this admission?: Yes (2) Anemia Qualifiers: Anemia type: unspecified type Qualified Code(s): D64.9 - Anemia, unspecified Is this a current diagnosis for this admission?: Yes (3) Chronic atrial fibrillation Is this a current diagnosis for this admission?: Yes (4) Dilantin toxicity Qualifiers: Encounter type: initial encounter Injury intent: accidental or unintentional Qualified Code(s): T42.0X1A - Poisoning by hydantoin derivatives , accidental (unintentional), initial encounter Is this a current diagnosis for this admission?: Yes (5) History of CVA (cerebrovascular accident) Is this a current diagnosis for this admission?: No (6) Seizure disorder Is this a current diagnosis for this admission?: Yes - Time Time Spent with patient: 15-24 minutes Medications reviewed and adjusted accordingly: Yes Anticipated discharge: Other Within: Other - Inpatient Certification Medical Necessity: Need Close Monitoring Due to Risk of Patient Decompensation Post Hospital Care: D/C Nurse Manager Documentation - Plan Summary Plan Summary: Continues to current medication Check the blood work in the morning
[2018-01-01] MEDS: IPRATROPIUM/ALBUTEROL 0.5-2.5 MG/3 ML AMPUL NEB PRN ×2 (11:57→22:44)
[2018-01-01] MEDS ORDERED: DILTIAZEM HCL 120 MG CAP.SR.24H PO ONE (12:00)
[2018-01-01] MEDS: ACETAMINOPHEN 325 MG TABLET PO PRN (15:54)
[2018-01-01] MEDS: DILTIAZEM HCL 120 MG CAP.SR.24H PO SCH (21:55)
[2018-01-01] MEDS: ATORVASTATIN CALCIUM 20 MG TABLET PO SCH (21:55)
[2018-01-01] MEDS: BUTALB/ACETAMINOPHEN/CAFFEINE 1 TAB EACH PO PRN (23:22)
[2018-01-02] MEDS: CLINDAMYCIN HCL 150 MG CAPSULE PO SCH ×3 (05:52→21:54)
[2018-01-02 07:22] LABS: ABSOLUTE BASOPHILS # (AUTO) 0.1 10^3/uL (0.0-0.2); ABSOLUTE EOSINOPHILS # (AUTO) 0.2 10^3/uL (0.0-0.6); ABSOLUTE LYMPHOCYTES (AUTO) 1.3 10^3/uL (0.5-4.7); ABSOLUTE MONOCYTES (AUTO) 0.7 10^3/uL (0.1-1.4); BASOPHILS % (AUTO) 0.7 % (0-2); EOSINOPHILS % (AUTO) 2.2 % (0-6); HEMATOCRIT 28.5 % (37.9-51.0); HEMOGLOBIN 9.8 g/dL (13.5-17.0); LYMPHOCYTES % (AUTO) 17.9 % (13-45); MEAN CORPUSCULAR HEMOGLOBIN 30.5 pg (27.0-33.4); MEAN CORPUSCULAR HGB CONC 34.2 g/dL (32.0-36.0); MEAN CORPUSCULAR VOLUME 89 fl (80-97); MONOCYTES % (AUTO) 9.6 % (3-13); PLATELET COUNT 248 10^3/uL (150-450); RED CELL DISTRIBUTION WIDTH 17.5 % (11.5-14.0); SEGMENTED NEUTROPHILS % (AUTO) 69.6 % (42-78); TOTAL CELLS COUNTED % (AUTO) 100 %; WHITE BLOOD COUNT 7.2 10^3/uL (4.0-10.5)
[2018-01-02 07:47] LABS: ANION GAP 8 (5-19); BLOOD UREA NITROGEN 29 mg/dL (7-20); CALCIUM 8.3 mg/dL (8.4-10.2); CARBON DIOXIDE 24 mmol/L (22-30); CHLORIDE 117 mmol/L (98-107); GLUCOSE 106 mg/dL (75-110); POTASSIUM 4.3 mmol/L (3.6-5.0); SODIUM 148.8 mmol/L (137-145)
[2018-01-02] MEDS: DILTIAZEM HCL 120 MG CAP.SR.24H PO SCH ×2 (10:23→21:54)
[2018-01-02] MEDS: LEVETIRACETAM 500 MG TABLET PO SCH ×2 (10:23→21:54)
[2018-01-02] MEDS: PHENYTOIN SODIUM EXTENDED 100 MG CAPSULE PO SCH ×2 (10:23→21:54)
[2018-01-02] MEDS: POLYETHYLENE GLYCOL 3350 POWDER 17 GM/1 PACKET PO SCH (10:23)
[2018-01-02] MEDS: FINASTERIDE 5 MG TABLET PO SCH (10:23)
[2018-01-02] MEDS: SENNOSIDES/DOCUSATE 8.6-50 MG 1 EACH TABLET PO SCH (10:24)
[2018-01-02] MEDS: APIXABAN 2.5 MG TABLET PO SCH ×2 (10:24→21:53)
--- NOTE | 2018-01-02 10:31 | PDOC PROGRESS REPORT ---
Subjective Progress Note for:: 01/02/18 Subjective:: Patient was admitted because of acute renal failure and Dilantin toxicity with history of the chronic A. fib and a seizures disorders currently doing fair Dilantin was stopped and started on Keppra IV Patient is currently on a Cardizem drip and heart rate is currently doing well Also on Eliquis 2.5 mg p.o. twice a day Patient also received blood transfusions There is no blood loss seen per nursing staff Reason For Visit: ACUTE KIDNEY INJURY,DILANTIN TOXICITY,BLADDER MAS Physical Exam Vital Signs: Temp Pulse Resp BP Pulse Ox 98.7 F 91 20 151/82 H 100 01/02/18 08:18 01/02/18 08:18 01/02/18 08:18 01/02/18 08:18 01/02/18 08:18 Intake & Output 01/01/18 01/02/18 01/03/18 06:59 06:59 06:59 Intake Total 1455 1325 Output Total 725 100 Balance 730 1225 Weight 66.9 kg 67.5 kg General appearance: PRESENT: no acute distress, well-developed, well-nourished Head exam: PRESENT: atraumatic, normocephalic Eye exam: PRESENT: conjunctiva pink, EOMI, PERRLA. ABSENT: scleral icterus Ear exam: PRESENT: normal external ear exam Mouth exam: PRESENT: moist, tongue midline Neck exam: PRESENT: full ROM. ABSENT: carotid bruit, JVD, lymphadenopathy, thyromegaly Respiratory exam: PRESENT: clear to auscultation kimberly Cardiovascular exam: PRESENT: RRR. ABSENT: diastolic murmur, rubs, systolic murmur Pulses: PRESENT: normal dorsalis pedis pul, +2 pedal pulses bilateral Vascular exam: PRESENT: normal capillary refill GI/Abdominal exam: PRESENT: normal bowel sounds, soft. ABSENT: distended, guarding, mass, organolmegaly, rebound, tenderness Rectal exam: PRESENT: deferred Neurological exam: PRESENT: alert, awake, oriented to person. ABSENT: motor sensory deficit Psychiatric exam: PRESENT: appropriate affect, normal mood. ABSENT: homicidal ideation, suicidal ideation Skin exam: PRESENT: dry, intact, warm. ABSENT: cyanosis, rash Results Laboratory Results: 01/02/18 07:09 01/02/18 07:09 01/02/18 01/02/18 07:09 07:09 WBC 7.2 RBC 3.20 L Hgb 9.8 L Hct 28.5 L MCV 89 MCH 30.5 MCHC 34.2 RDW 17.5 H Plt Count 248 Seg Neutrophils % 69.6 Lymphocytes % 17.9 Monocytes % 9.6 Eosinophils % 2.2 Basophils % 0.7 Absolute Neutrophils 5.0 Absolute Lymphocytes 1.3 Absolute Monocytes 0.7 Absolute Eosinophils 0.2 Absolute Basophils 0.1 Sodium 148.8 H Potassium 4.3 Chloride 117 H Carbon Dioxide 24 Anion Gap 8 BUN 29 H Creatinine 0.95 Est GFR ( Amer) > 60 Est GFR (Non-Af Amer) > 60 Glucose 106 Calcium 8.3 L 12/30/17 12/30/17 12/31/17 19:00 19:00 06:15 Creatine Kinase 132 Cancelled CK-MB (CK-2) 1.19 Troponin I 0.050 NT-Pro-B Natriuret Pep 9930 H 12/31/17 12/31/17 12/31/17 06:15 06:30 16:50 Creatine Kinase 104 108 CK-MB (CK-2) 0.81 Troponin I 0.057 NT-Pro-B Natriuret Pep 12/31/17 16:50 Creatine Kinase CK-MB (CK-2) 0.78 Troponin I 0.052 NT-Pro-B Natriuret Pep Impressions: Renal Ultrasound 12/23/17 00:00 IMPRESSION: Small echogenic kidneys from chronic medical renal disease, stable. 2 x 2 cm posterior bladder wall mass worrisome for primary bladder neoplasm. Abdomen/Pelvis CT 12/25/17 00:00 IMPRESSION: 1. Multiple calcifications within the kidneys, likely vascular in nature. 2. No definite source for patient's gross hematuria. 3. Small amount of free fluid noted within the abdomen and pelvis. 4. Chronic changes as above Head CT 12/26/17 00:00 IMPRESSION: NO CT EVIDENCE OF ACUTE ISCHEMIA, HEMORRHAGE, OR MASS LESION. CHRONIC MICROVASCULAR ISCHEMIC DISEASE AND CHRONIC LARGE TERRITORY INFARCTIONS DETAILED ABOVE. EVIDENCE OF ACUTE STROKE: NO. Chest X-Ray 12/31/17 00:00 IMPRESSION: 1. Small right pleural effusion with likely underlying right basilar atelectasis or consolidation. 2. Left IJ central venous catheter tip projecting over the SVC. Assessment & Plan - Diagnosis (1) Acute on chronic renal insufficiency Is this a current diagnosis for this admission?: Yes (2) Anemia Qualifiers: Anemia type: unspecified type Qualified Code(s): D64.9 - Anemia, unspecified Is this a current diagnosis for this admission?: Yes (3) Chronic atrial fibrillation Is this a current diagnosis for this admission?: Yes (4) Dilantin toxicity Qualifiers: Encounter type: initial encounter Injury intent: accidental or unintentional Qualified Code(s): T42.0X1A - Poisoning by hydantoin derivatives , accidental (unintentional), initial encounter Is this a current diagnosis for this admission?: Yes (5) History of CVA (cerebrovascular accident) Is this a current diagnosis for this admission?: No (6) Seizure disorder Is this a current diagnosis for this admission?: Yes - Time Time Spent with patient: 15-24 minutes Medications reviewed and adjusted accordingly: Yes Anticipated discharge: Home Within: Other - Inpatient Certification Medical Necessity: Need Close Monitoring Due to Risk of Patient Decompensation Post Hospital Care: D/C Demurrage Man Documentation - Plan Summary Plan Summary: continue to current medication
[2018-01-02] MEDS ORDERED: LEVALBUTEROL HCL NEB 0.63 MG/3 ML AMPUL NEB PRN (10:39)
--- NOTE | 2018-01-02 12:01 | RADIOLOGY REPORT (SQ) ---
EXAM DESCRIPTION: CHEST SINGLE VIEW COMPLETED DATE/TIME: 01/02/2018 11:48 am REASON FOR STUDY: cough COMPARISON: 12/31/2017 EXAM PARAMETERS: NUMBER OF VIEWS: To TECHNIQUE: Single frontal radiographic view of the chest acquired. RADIATION DOSE: NA LIMITATIONS: None. FINDINGS: LUNGS AND PLEURA: Improved aeration of the right lung base with persistent small to modera te pleural effusion. Minimal subsegmental atelectasis left lung base with possible small pleural F MEDIASTINUM AND HILAR STRUCTURES: Stable in size and contour. HEART AND VASCULAR STRUCTURES: Heart stable in size. Normal vasculature. BONES: No acute findings. HARDWARE: Stable. OTHER: No other significant finding. IMPRESSION: INTERVAL IMPROVED AERATION RIGHT LOWER LOBE. OTHERWISE STABLE APPEARANCE THE CHEST. TECHNICAL DOCUMENTATION: JOB ID: [id number] [employer]- All Rights Reserved Reading location - IP/workstation name: [email or web address]
[2018-01-02] MEDS: ACETAMINOPHEN 325 MG TABLET PO PRN (16:12)
[2018-01-02] MEDS: ATORVASTATIN CALCIUM 20 MG TABLET PO SCH (21:54)
[2018-01-02] MEDS: GUAIFENESIN 600 MG TABLET.SA PO SCH (21:54)
[2018-01-03] MEDS: CLINDAMYCIN HCL 150 MG CAPSULE PO SCH ×3 (06:03→21:16)
[2018-01-03 08:37] LABS: ANION GAP 10 (5-19); BLOOD UREA NITROGEN 31 mg/dL (7-20); CALCIUM 8.1 mg/dL (8.4-10.2); CARBON DIOXIDE 23 mmol/L (22-30); CHLORIDE 116 mmol/L (98-107); GLUCOSE 103 mg/dL (75-110); SODIUM 149.4 mmol/L (137-145)
[2018-01-03 08:40] LABS: POTASSIUM 4.3 mmol/L (3.6-5.0)
[2018-01-03] MEDS: FINASTERIDE 5 MG TABLET PO SCH (09:59)
[2018-01-03] MEDS: PHENYTOIN SODIUM EXTENDED 100 MG CAPSULE PO SCH ×2 (09:59→21:17)
[2018-01-03] MEDS: DILTIAZEM HCL 120 MG CAP.SR.24H PO SCH ×2 (09:59→21:16)
[2018-01-03] MEDS: GUAIFENESIN 600 MG TABLET.SA PO SCH ×2 (09:59→21:16)
[2018-01-03] MEDS: LEVETIRACETAM 500 MG TABLET PO SCH ×2 (09:59→21:17)
[2018-01-03] MEDS: APIXABAN 2.5 MG TABLET PO SCH ×2 (10:00→21:18)
[2018-01-03] MEDS: POLYETHYLENE GLYCOL 3350 POWDER 17 GM/1 PACKET PO SCH (10:03)
[2018-01-03] MEDS: SENNOSIDES/DOCUSATE 8.6-50 MG 1 EACH TABLET PO SCH (10:03)
[2018-01-03] MEDS ORDERED: ALTEPLASE INJ 2 MG VIAL (CATH CLEARANCE) INJ ONE (20:00)
[2018-01-03] MEDS: ATORVASTATIN CALCIUM 20 MG TABLET PO SCH (21:16)
[2018-01-03] MEDS: LORATADINE 10 MG TABLET PO SCH (21:17)
--- NOTE | 2018-01-03 21:47 | PDOC PROGRESS REPORT ---
Subjective Progress Note for:: 01/03/18 Subjective:: Patient is seen by the bedside, he complains of cold symptoms Reason For Visit: ACUTE KIDNEY INJURY,DILANTIN TOXICITY,BLADDER MAS Physical Exam Vital Signs: Temp Pulse Resp BP Pulse Ox 100.0 F 124 H 24 H 144/78 H 100 01/03/18 20:07 01/03/18 20:07 01/03/18 20:07 01/03/18 20:07 01/03/18 20:07 Intake & Output 01/02/18 01/03/18 01/04/18 06:59 06:59 06:59 Intake Total 1325 1192 681 Output Total 100 100 Balance 1225 1192 581 Weight 67.5 kg 66.7 kg General appearance: PRESENT: no acute distress Eye exam: PRESENT: PERRLA Respiratory exam: PRESENT: clear to auscultation kimberly Cardiovascular exam: PRESENT: +S1, +S2 GI/Abdominal exam: PRESENT: soft Neurological exam: PRESENT: alert Results Laboratory Results: 01/02/18 07:09 01/03/18 07:53 01/03/18 07:53 Sodium 149.4 H Potassium 4.3 Chloride 116 H Carbon Dioxide 23 Anion Gap 10 BUN 31 H Creatinine 1.07 Est GFR ( Amer) > 60 Est GFR (Non-Af Amer) > 60 Glucose 103 Calcium 8.1 L 12/28/17 17:45 Blood Blood Culture - Final NO GROWTH IN 5 DAYS 12/28/17 18:10 Blood Blood Culture - Final NO GROWTH IN 5 DAYS 12/30/17 12/30/17 12/31/17 19:00 19:00 06:15 Creatine Kinase 132 Cancelled CK-MB (CK-2) 1.19 Troponin I 0.050 NT-Pro-B Natriuret Pep 9930 H 12/31/17 12/31/17 12/31/17 06:15 06:30 16:50 Creatine Kinase 104 108 CK-MB (CK-2) 0.81 Troponin I 0.057 NT-Pro-B Natriuret Pep 12/31/17 16:50 Creatine Kinase CK-MB (CK-2) 0.78 Troponin I 0.052 NT-Pro-B Natriuret Pep Impressions: Renal Ultrasound 12/23/17 00:00 IMPRESSION: Small echogenic kidneys from chronic medical renal disease, stable. 2 x 2 cm posterior bladder wall mass worrisome for primary bladder neoplasm. Abdomen/Pelvis CT 12/25/17 00:00 IMPRESSION: 1. Multiple calcifications within the kidneys, likely vascular in nature. 2. No definite source for patient's gross hematuria. 3. Small amount of free fluid noted within the abdomen and pelvis. 4. Chronic changes as above Head CT 12/26/17 00:00 IMPRESSION: NO CT EVIDENCE OF ACUTE ISCHEMIA, HEMORRHAGE, OR MASS LESION. CHRONIC MICROVASCULAR ISCHEMIC DISEASE AND CHRONIC LARGE TERRITORY INFARCTIONS DETAILED ABOVE. EVIDENCE OF ACUTE STROKE: NO. Chest X-Ray 01/02/18 00:00 IMPRESSION: INTERVAL IMPROVED AERATION RIGHT LOWER LOBE. OTHERWISE STABLE APPEARANCE THE CHEST. Assessment & Plan - Diagnosis (1) Acute kidney injury Is this a current diagnosis for this admission?: Yes (2) Dilantin toxicity Qualifiers: Encounter type: initial encounter Injury intent: accidental or unintentional Qualified Code(s): T42.0X1A - Poisoning by hydantoin derivatives , accidental (unintentional), initial encounter Is this a current diagnosis for this admission?: Yes (3) Chronic kidney disease Qualifiers: Chronic kidney disease stage: stage 3 (moderate) Qualified Code(s): N18.3 - Chronic kidney disease, stage 3 (moderate) Is this a current diagnosis for this admission?: Yes (4) Chronic atrial fibrillation Is this a current diagnosis for this admission?: Yes (5) BPH (benign prostatic hyperplasia) Is this a current diagnosis for this admission?: Yes (6) COPD (chronic obstructive pulmonary disease) Qualifiers: COPD type: unspecified COPD Qualified Code(s): J44.9 - Chronic obstructive pulmonary disease, unspecified Is this a current diagnosis for this admission?: Yes (7) Status epilepticus Is this a current diagnosis for this admission?: Yes (8) Cellulitis of hand, left Is this a current diagnosis for this admission?: Yes (9) Respiratory distress Is this a current diagnosis for this admission?: Yes
[2018-01-04] MEDS: CLINDAMYCIN HCL 150 MG CAPSULE PO SCH ×3 (05:09→21:47)
[2018-01-04 05:45] LABS: ANION GAP 8 (5-19); BLOOD UREA NITROGEN 30 mg/dL (7-20); CALCIUM 8.1 mg/dL (8.4-10.2); CARBON DIOXIDE 25 mmol/L (22-30); CHLORIDE 113 mmol/L (98-107); GLUCOSE 96 mg/dL (75-110); POTASSIUM 4.2 mmol/L (3.6-5.0); SODIUM 146.4 mmol/L (137-145)
[2018-01-04] MEDS: BUTALB/ACETAMINOPHEN/CAFFEINE 1 TAB EACH PO PRN (08:44)
[2018-01-04 09:12] LABS: ABSOLUTE EOSINOPHILS # (AUTO) 0.1 10^3/uL (0.0-0.6); ABSOLUTE LYMPHOCYTES (AUTO) 1.7 10^3/uL (0.5-4.7); ABSOLUTE MONOCYTES (AUTO) 0.8 10^3/uL (0.1-1.4); ABSOLUTE NEUT (AUTO) 4.7 10^3/uL (1.7-8.2); BASOPHILS % (AUTO) 0.5 % (0-2); HEMATOCRIT 28.8 % (37.9-51.0); HEMOGLOBIN 9.7 g/dL (13.5-17.0); LYMPHOCYTES % (AUTO) 23.4 % (13-45); MEAN CORPUSCULAR HEMOGLOBIN 30.6 pg (27.0-33.4); MEAN CORPUSCULAR HGB CONC 33.6 g/dL (32.0-36.0); MEAN CORPUSCULAR VOLUME 91 fl (80-97); MONOCYTES % (AUTO) 10.3 % (3-13); PLATELET COUNT 281 10^3/uL (150-450); RED BLOOD COUNT 3.16 10^6/uL (4.35-5.55); RED CELL DISTRIBUTION WIDTH 17.2 % (11.5-14.0); SEGMENTED NEUTROPHILS % (AUTO) 63.8 % (42-78); TOTAL CELLS COUNTED % (AUTO) 100 %; WHITE BLOOD COUNT 7.4 10^3/uL (4.0-10.5)
[2018-01-04 09:22] LABS: ALANINE AMINOTRANSFERASE 48 U/L (21-72); ALBUMIN 2.4 g/dL (3.5-5.0); ALKALINE PHOSPHATASE 77 U/L (38-126); ANION GAP 10 (5-19); ASPARTATE AMINO TRANSFERASE 32 U/L (17-59); BILIRUBIN,DIRECT 0.2 mg/dL (0.0-0.4); BILIRUBIN,TOTAL 0.2 mg/dL (0.2-1.3); BLOOD UREA NITROGEN 30 mg/dL (7-20); CALCIUM 8.3 mg/dL (8.4-10.2); CARBON DIOXIDE 26 mmol/L (22-30); CHLORIDE 113 mmol/L (98-107); GLUCOSE 87 mg/dL (75-110); POTASSIUM 4.3 mmol/L (3.6-5.0); SODIUM 148.5 mmol/L (137-145); TOTAL PROTEIN 5.5 g/dL (6.3-8.2)
[2018-01-04] MEDS: PHENYTOIN SODIUM EXTENDED 100 MG CAPSULE PO SCH ×2 (09:45→21:48)
[2018-01-04] MEDS: APIXABAN 2.5 MG TABLET PO SCH ×2 (09:45→21:47)
[2018-01-04] MEDS: SENNOSIDES/DOCUSATE 8.6-50 MG 1 EACH TABLET PO SCH (09:45)
[2018-01-04] MEDS: POLYETHYLENE GLYCOL 3350 POWDER 17 GM/1 PACKET PO SCH (09:45)
[2018-01-04] MEDS: DILTIAZEM HCL 120 MG CAP.SR.24H PO SCH ×2 (09:45→21:48)
[2018-01-04] MEDS: FINASTERIDE 5 MG TABLET PO SCH (09:45)
[2018-01-04] MEDS: GUAIFENESIN 600 MG TABLET.SA PO SCH ×2 (09:45→21:49)
[2018-01-04] MEDS: LEVETIRACETAM 500 MG TABLET PO SCH ×2 (09:46→21:49)
--- NOTE | 2018-01-04 20:49 | PDOC PROGRESS REPORT ---
Subjective Progress Note for:: 01/04/18 Subjective:: Patient is seen by the bedside, there is no new complaints, [facility] to [facility] the [facility] Reason For Visit: ACUTE KIDNEY INJURY,DILANTIN TOXICITY,BLADDER MAS Physical Exam Vital Signs: Temp Pulse Resp BP Pulse Ox 99.0 F 87 16 142/81 H 100 01/04/18 19:31 01/04/18 19:31 01/04/18 19:31 01/04/18 19:31 01/04/18 19:31 Intake & Output 01/03/18 01/04/18 01/05/18 06:59 06:59 06:59 Intake Total 1192 811 647 Output Total 400 Balance 1192 411 647 Weight 66.7 kg 66.4 kg General appearance: PRESENT: no acute distress Eye exam: PRESENT: PERRLA Respiratory exam: PRESENT: clear to auscultation kimberly Cardiovascular exam: PRESENT: +S1, +S2 GI/Abdominal exam: PRESENT: soft Neurological exam: PRESENT: alert Results Laboratory Results: 01/04/18 08:43 01/04/18 08:43 01/04/18 01/04/18 01/04/18 05:00 08:43 08:43 WBC 7.4 RBC 3.16 L Hgb 9.7 L Hct 28.8 L MCV 91 MCH 30.6 MCHC 33.6 RDW 17.2 H Plt Count 281 Seg Neutrophils % 63.8 Lymphocytes % 23.4 Monocytes % 10.3 Eosinophils % 2.0 Basophils % 0.5 Absolute Neutrophils 4.7 Absolute Lymphocytes 1.7 Absolute Monocytes 0.8 Absolute Eosinophils 0.1 Absolute Basophils 0.0 Sodium 146.4 H 148.5 H Potassium 4.2 4.3 Chloride 113 H 113 H Carbon Dioxide 25 26 Anion Gap 8 10 BUN 30 H 30 H Creatinine 0.96 1.07 Est GFR ( Amer) > 60 > 60 Est GFR (Non-Af Amer) > 60 > 60 Glucose 96 87 Calcium 8.1 L 8.3 L Total Bilirubin 0.2 AST 32 ALT 48 Alkaline Phosphatase 77 Total Protein 5.5 L Albumin 2.4 L 12/30/17 12/30/17 12/31/17 19:00 19:00 06:15 Creatine Kinase 132 Cancelled CK-MB (CK-2) 1.19 Troponin I 0.050 NT-Pro-B Natriuret Pep 9930 H 12/31/17 12/31/17 12/31/17 06:15 06:30 16:50 Creatine Kinase 104 108 CK-MB (CK-2) 0.81 Troponin I 0.057 NT-Pro-B Natriuret Pep 12/31/17 16:50 Creatine Kinase CK-MB (CK-2) 0.78 Troponin I 0.052 NT-Pro-B Natriuret Pep Impressions: Renal Ultrasound 12/23/17 00:00 IMPRESSION: Small echogenic kidneys from chronic medical renal disease, stable. 2 x 2 cm posterior bladder wall mass worrisome for primary bladder neoplasm. Abdomen/Pelvis CT 12/25/17 00:00 IMPRESSION: 1. Multiple calcifications within the kidneys, likely vascular in nature. 2. No definite source for patient's gross hematuria. 3. Small amount of free fluid noted within the abdomen and pelvis. 4. Chronic changes as above Head CT 12/26/17 00:00 IMPRESSION: NO CT EVIDENCE OF ACUTE ISCHEMIA, HEMORRHAGE, OR MASS LESION. CHRONIC MICROVASCULAR ISCHEMIC DISEASE AND CHRONIC LARGE TERRITORY INFARCTIONS DETAILED ABOVE. EVIDENCE OF ACUTE STROKE: NO. Chest X-Ray 01/02/18 00:00 IMPRESSION: INTERVAL IMPROVED AERATION RIGHT LOWER LOBE. OTHERWISE STABLE APPEARANCE THE CHEST. Assessment & Plan - Diagnosis (1) Acute kidney injury Is this a current diagnosis for this admission?: Yes (2) Dilantin toxicity Qualifiers: Encounter type: initial encounter Injury intent: accidental or unintentional Qualified Code(s): T42.0X1A - Poisoning by hydantoin derivatives , accidental (unintentional), initial encounter Is this a current diagnosis for this admission?: Yes (3) Chronic kidney disease Qualifiers: Chronic kidney disease stage: stage 3 (moderate) Qualified Code(s): N18.3 - Chronic kidney disease, stage 3 (moderate) Is this a current diagnosis for this admission?: Yes (4) Chronic atrial fibrillation Is this a current diagnosis for this admission?: Yes (5) BPH (benign prostatic hyperplasia) Is this a current diagnosis for this admission?: Yes (6) COPD (chronic obstructive pulmonary disease) Qualifiers: COPD type: unspecified COPD Qualified Code(s): J44.9 - Chronic obstructive pulmonary disease, unspecified Is this a current diagnosis for this admission?: Yes (7) Status epilepticus Is this a current diagnosis for this admission?: Yes (8) Cellulitis of hand, left Is this a current diagnosis for this admission?: Yes (9) Respiratory distress Is this a current diagnosis for this admission?: Yes
[2018-01-04] MEDS: LORATADINE 10 MG TABLET PO SCH (21:45)
[2018-01-04] MEDS: ATORVASTATIN CALCIUM 20 MG TABLET PO SCH (21:49)
[2018-01-05] MEDS: CLINDAMYCIN HCL 150 MG CAPSULE PO SCH (05:50)
[2018-01-05] MEDS: POLYETHYLENE GLYCOL 3350 POWDER 17 GM/1 PACKET PO SCH (09:25)
[2018-01-05] MEDS: APIXABAN 2.5 MG TABLET PO SCH (09:26)
[2018-01-05] MEDS: GUAIFENESIN 600 MG TABLET.SA PO SCH (09:26)
[2018-01-05] MEDS: FINASTERIDE 5 MG TABLET PO SCH (09:26)
[2018-01-05] MEDS: DILTIAZEM HCL 120 MG CAP.SR.24H PO SCH (09:27)
[2018-01-05] MEDS: SENNOSIDES/DOCUSATE 8.6-50 MG 1 EACH TABLET PO SCH (09:27)
[2018-01-05] MEDS: PHENYTOIN SODIUM EXTENDED 100 MG CAPSULE PO SCH (09:27)
[2018-01-05] MEDS: LEVETIRACETAM 500 MG TABLET PO SCH (09:28)
[2018-01-05 09:35] LABS: ABSOLUTE BASOPHILS # (AUTO) 0.1 10^3/uL (0.0-0.2); ABSOLUTE EOSINOPHILS # (AUTO) 0.1 10^3/uL (0.0-0.6); ABSOLUTE LYMPHOCYTES (AUTO) 1.5 10^3/uL (0.5-4.7); ABSOLUTE MONOCYTES (AUTO) 0.6 10^3/uL (0.1-1.4); ABSOLUTE NEUT (AUTO) 4.5 10^3/uL (1.7-8.2); EOSINOPHILS % (AUTO) 1.9 % (0-6); HEMATOCRIT 29.2 % (37.9-51.0); HEMOGLOBIN 9.7 g/dL (13.5-17.0); LYMPHOCYTES % (AUTO) 22.4 % (13-45); MEAN CORPUSCULAR HEMOGLOBIN 30.5 pg (27.0-33.4); MEAN CORPUSCULAR HGB CONC 33.4 g/dL (32.0-36.0); MEAN CORPUSCULAR VOLUME 91 fl (80-97); MONOCYTES % (AUTO) 9.3 % (3-13); PLATELET COUNT 284 10^3/uL (150-450); RED CELL DISTRIBUTION WIDTH 16.7 % (11.5-14.0); SEGMENTED NEUTROPHILS % (AUTO) 65.4 % (42-78); TOTAL CELLS COUNTED % (AUTO) 100 %; WHITE BLOOD COUNT 6.9 10^3/uL (4.0-10.5)
[2018-01-05 09:44] LABS: ALANINE AMINOTRANSFERASE 43 U/L (21-72); ALBUMIN 2.5 g/dL (3.5-5.0); ALKALINE PHOSPHATASE 79 U/L (38-126); ANION GAP 11 (5-19); ASPARTATE AMINO TRANSFERASE 33 U/L (17-59); BILIRUBIN,DIRECT 0.1 mg/dL (0.0-0.4); BILIRUBIN,TOTAL 0.1 mg/dL (0.2-1.3); BLOOD UREA NITROGEN 34 mg/dL (7-20); CALCIUM 8.4 mg/dL (8.4-10.2); CARBON DIOXIDE 25 mmol/L (22-30); CHLORIDE 113 mmol/L (98-107); GLUCOSE 113 mg/dL (75-110); POTASSIUM 4.3 mmol/L (3.6-5.0); TOTAL PROTEIN 5.8 g/dL (6.3-8.2)
[2018-01-05] MEDS ORDERED: SIMETHICONE 80 MG TAB.CHEW PO PRN (10:23)
--- NOTE | 2018-01-05 14:09 | PDOC TRANSFER SUMMARY ---
General - Admit/Disc Date/PCP Admission Date/Primary Care Provider: 12/25/17 12:16 Discharge Date: 01/05/18 - Discharge Diagnosis (1) Acute kidney injury Is this a current diagnosis for this admission?: Yes (2) Dilantin toxicity Is this a current diagnosis for this admission?: Yes (3) Chronic kidney disease Is this a current diagnosis for this admission?: Yes (4) Chronic atrial fibrillation Is this a current diagnosis for this admission?: Yes (5) BPH (benign prostatic hyperplasia) Is this a current diagnosis for this admission?: Yes (6) COPD (chronic obstructive pulmonary disease) Is this a current diagnosis for this admission?: Yes (7) Status epilepticus Is this a current diagnosis for this admission?: Yes (8) Cellulitis of hand, left Is this a current diagnosis for this admission?: Yes (9) Respiratory distress Is this a current diagnosis for this admission?: Yes (10) Nephrosclerosis Is this a current diagnosis for this admission?: Yes - Additional Information Prescriptions: Diltiazem HCl [Diltiazem 24Hr ER] 240 mg PO DAILY #90 cap.er.24h Home Medications: Atorvastatin Calcium [Lipitor 20 mg Tablet] 20 mg PO QHS 12/14/16 Docusate Sodium [Colace 100 mg Capsule] 100 mg PO DAILY 12/14/16 Finasteride [Proscar 5 mg Tablet] 5 mg PO DAILY 12/14/16 Polyethylene Glycol 3350 [Miralax Powder 17 gm/Packet] 1 packet PO DAILY Sennosides/Docusate 8.6-50 mg [Senna Plus Tablet] 2 tab PO DAILY 12/14/16 Apixaban [Eliquis 2.5 mg Tablet] 2.5 mg PO Q12 #0 tablet 12/17/16 Acetaminophen [Tylenol 325 mg Tablet] 650 mg PO Q6HP PRN tablet 01/05/18 Diltiazem HCl [Diltiazem 24Hr ER] 240 mg PO DAILY #90 cap.er.24h 01/05/18 Levalbuterol HCl [Xopenex Neb 0.63 mg/3 ml Ampul] 0.63 mg NEB RTQ6HP PRN vial.neb 01/05/18 Levetiracetam [Keppra 500 mg Tablet] 1,000 mg PO Q12 tablet 01/05/18 Phenytoin Sodium Extended [Dilantin 100 mg Capsule.er] 100 mg PO Q12 capsule History of Present Illness Admission Date/PCP: 12/25/17 12:16 History of Present Illness: GRAYSON BURCH is a 72 year old male, He has a history of chronic obstructive pulmonary disease, enlarged prostate, chronic atrial fibrillation on chronic anticoagulant with Eliquis, peripheral vascular disease status post amputation of left leg below the knee, [facility] room for evaluation of acute kidney injury that was detected from routine blood work that was done in the [facility]. There was associated hyperkalemia, in the emergency room he was evaluated he was also found to have elevated Dilantin level. Poison control was consulted from the emergency room, hospital admission was advised and for patient to have serial Dilantin level done in the hospital setting. Patient is known to have chronic kidney disease with a baseline creatinine of 1.3-1.5, because of the acute kidney injury a kidney ultrasound was done as part of the evaluation for acute kidney injury, it showed diffuse increased cortical echogenicity of both kidneys, there are small and echogenic also found incidentally was a 2 x 2 centimeter posterior bladder wall mass worrisome for primary bladder neoplasm.A CAT scan of the abdomen with IV contrast is indicated to further define the lesion that was found on ultrasound of the kidney but contrast cannot presently be administered because of the acute kidney injury, patient will be hydrated with IV fluid to normalize kidney function and then urogram with IV contrast would be ordered. These findings was discussed with the patient, on direct questioning he suggested that he has been experiencing frequency of urination but he denies any hematuria Hospital Course Hospital Course: Patient was admitted for the management of acute kidney injury, he has baseline chronic kidney disease Stage III due to nephrosclerosis, part of the management included ultrasound of the kidney, the ultrasound of the kidneys showed small echogenic kidneys, 2 x 2 cm posterior bladder wall mass worrisome for primary bladder neoplasm. On admission he had elevated serum creatinine it was felt that there was a prerenal component was treated with IV fluid with normalization of serum creatinine. Patient had CAT scan of the abdomen and pelvis with IV contrast, the CT scan did not demonstrate any bladder neoplasm . He was admitted partly for the management of Dilantin toxicity, the Dilantin was on hold for a period of time, he was found unresponsive during the course of hospital stay, CT head was done this was negative for an acute pathology there was no intracranial hemorrhage he subsequently developed tonic-clonic contraction consistent with seizure. He was treated with IV Dilantin subsequently the Dilantin dose was reduced to 100 mg p.o. twice daily in addition to Keppra he also had episode of atrial fibrillation with rapid ventricular response requiring Cardizem infusion for rate control, already on Eliquis chemoprophylaxis for CVA. He also had cellulitis/phlebitis of the left hand this was treated with antibiotic. Physical Exam Vital Signs: Temp Pulse Resp BP Pulse Ox 97.8 F 97 18 129/72 H 100 01/05/18 11:59 01/05/18 11:59 01/05/18 11:59 01/05/18 11:59 01/05/18 11:09 Intake & Output 01/04/18 01/05/18 01/06/18 06:59 06:59 06:59 Intake Total 811 1007 200 Output Total 400 325 Balance 411 1007 -125 Weight 66.4 kg 67 kg General appearance: PRESENT: no acute distress Eye exam: PRESENT: PERRLA Respiratory exam: PRESENT: clear to auscultation kimberly Cardiovascular exam: PRESENT: +S1, +S2 GI/Abdominal exam: PRESENT: soft Extremities exam: PRESENT: other - Left AKA Neurological exam: PRESENT: alert Results Laboratory Results: 01/05/18 09:00 01/05/18 09:00 01/05/18 01/05/18 09:00 09:00 WBC 6.9 RBC 3.20 L Hgb 9.7 L Hct 29.2 L MCV 91 MCH 30.5 MCHC 33.4 RDW 16.7 H Plt Count 284 Seg Neutrophils % 65.4 Lymphocytes % 22.4 Monocytes % 9.3 Eosinophils % 1.9 Basophils % 1.0 Absolute Neutrophils 4.5 Absolute Lymphocytes 1.5 Absolute Monocytes 0.6 Absolute Eosinophils 0.1 Absolute Basophils 0.1 Sodium 149.0 H Potassium 4.3 Chloride 113 H Carbon Dioxide 25 Anion Gap 11 BUN 34 H Creatinine 1.17 Est GFR ( Amer) > 60 Est GFR (Non-Af Amer) > 60 Glucose 113 H Calcium 8.4 Total Bilirubin 0.1 L AST 33 ALT 43 Alkaline Phosphatase 79 Total Protein 5.8 L Albumin 2.5 L 12/30/17 12/30/17 12/31/17 19:00 19:00 06:15 Creatine Kinase 132 Cancelled CK-MB (CK-2) 1.19 Troponin I 0.050 NT-Pro-B Natriuret Pep 9930 H 12/31/17 12/31/17 12/31/17 06:15 06:30 16:50 Creatine Kinase 104 108 CK-MB (CK-2) 0.81 Troponin I 0.057 NT-Pro-B Natriuret Pep 12/31/17 16:50 Creatine Kinase CK-MB (CK-2) 0.78 Troponin I 0.052 NT-Pro-B Natriuret Pep Impressions: Renal Ultrasound 12/23/17 00:00 IMPRESSION: Small echogenic kidneys from chronic medical renal disease, stable. 2 x 2 cm posterior bladder wall mass worrisome for primary bladder neoplasm. Abdomen/Pelvis CT 12/25/17 00:00 IMPRESSION: 1. Multiple calcifications within the kidneys, likely vascular in nature. 2. No definite source for patient's gross hematuria. 3. Small amount of free fluid noted within the abdomen and pelvis. 4. Chronic changes as above Head CT 12/26/17 00:00 IMPRESSION: NO CT EVIDENCE OF ACUTE ISCHEMIA, HEMORRHAGE, OR MASS LESION. CHRONIC MICROVASCULAR ISCHEMIC DISEASE AND CHRONIC LARGE TERRITORY INFARCTIONS DETAILED ABOVE. EVIDENCE OF ACUTE STROKE: NO. Chest X-Ray 01/02/18 00:00 IMPRESSION: INTERVAL IMPROVED AERATION RIGHT LOWER LOBE. OTHERWISE STABLE APPEARANCE THE CHEST. Qualifiers - * PATIENT BEING DISCHARGED WITH ANY OF THE FOLLOWING DIAGNOSIS: No VTE patient discharged on overlapping Therapy?: Yes
[2018-01-05 16:34] VITALS: BP 133/77
== END 2018-01-05 19:15 | DRG 682 ==
LOC: ER 19:35 → EH 23:29 → UNDOADMOB 23:29 → EH 23:36 → 3S 12-23 02:47 → OBSVTOIN 12-25 12:16
PROVIDERS: ADMIT Internal Medicine; ATTEND Internal Medicine
PROC: 02HV33Z Insertion of Infusion Device into Superior Vena Cava, Percutaneous Approach (ICD-10-PCS; principal; 2017-12-30)
PROC: B548ZZA Ultrasonography of Superior Vena Cava, Guidance (ICD-10-PCS; 2017-12-30)
PROC: 30233N1 Transfusion of Nonautologous Red Blood Cells into Peripheral Vein, Percutaneous Approach (ICD-10-PCS; 2017-12-31)
DX: N17.9 Acute kidney failure, unspecified (principal); J69.0 Pneumonitis due to inhalation of food and vomit; L03.114 Cellulitis of left upper limb; I69.354 Hemiplegia and hemiparesis following cerebral infarction affecting left non-dominant side; T82.7XXA Infection and inflammatory reaction due to other cardiac and vascular devices, implants and grafts, initial encounter; T42.0X5A Adverse effect of hydantoin derivatives, initial encounter; I48.2 Chronic atrial fibrillation; N40.0 Benign prostatic hyperplasia without lower urinary tract symptoms; G40.901 Epilepsy, unspecified, not intractable, with status epilepticus; D64.9 Anemia, unspecified; I73.9 Peripheral vascular disease, unspecified; E87.5 Hyperkalemia; N32.9 Bladder disorder, unspecified; I12.9 Hypertensive chronic kidney disease with stage 1 through stage 4 chronic kidney disease, or unspecified chronic kidney disease; E11.22 Type 2 diabetes mellitus with diabetic chronic kidney disease; N18.3 Chronic kidney disease, stage 3 (moderate); Y92.129 Unspecified place in nursing home as the place of occurrence of the external cause; M19.90 Unspecified osteoarthritis, unspecified site; I87.2 Venous insufficiency (chronic) (peripheral); Y84.8 Other medical procedures as the cause of abnormal reaction of the patient, or of later complication, without mention of misadventure at the time of the procedure; Y92.239 Unspecified place in hospital as the place of occurrence of the external cause; Z96.653 Presence of artificial knee joint, bilateral; Z90.49 Acquired absence of other specified parts of digestive tract; Z87.891 Personal history of nicotine dependence; Z89.512 Acquired absence of left leg below knee; Z79.02 Long term (current) use of antithrombotics/antiplatelets
CPT/HCPCS: 36415; 36430; 70450; 71045; 74177; 76775; 80048; 80053; 80076; 80177; 80185; 80186; 81001; 82550; 82553; 82803; 82962; 83880; 84439; 84443; 84484; 85025; 85610; 85730; 86850; 86900; 86901; 86920; 87040; 87086; 93005; 93010; 93306; 96360; 96361; 99285; C1751; G0378; J0610; J1335; J1642; J1815; J1940; J1953; J2060; J2997; J3490; J7030; J7614; J7620; P9016

== ENCOUNTER 2018-11-08 16:40 | Emergency (ER) | payer MEDICARE, MEDICAID ==
--- NOTE | 2018-11-08 17:24 | ER Document Report ---
ED Medical Screen (RME) - General Chief Complaint: Abnormal Lab Results Stated Complaint: POSSIBLE HYPERKALEMIA Time Seen by Provider: 11/08/18 17:22 Primary Care Provider: TOMY CROCKER MD [Primary Care Provider] - Follow up as needed Notes: 73 years old male with history of renal failure sent over by the primary care physician for abnormal lab results. Patient does not know what it is. TRAVEL OUTSIDE OF THE [place] IN LAST 30 DAYS: No - Related Data Allergies/Adverse Reactions: No Known Allergies Allergy (Verified 12/22/17 20:15) Past Medical History - Past Medical History Cardiac Medical History: Reports: Hx Atrial Fibrillation, Hx Hypertension, Hx Peripheral Vascular Disease Denies: Hx Heart Attack Pulmonary Medical History: Reports: Hx Asthma, Hx COPD Denies: Hx Tuberculosis Neurological Medical History: Reports: Hx Cerebrovascular Accident - with left sided weakness. medications: Warfarin, Dilantin, Flomax, Hx Seizures Endocrine Medical History: Reports: Hx Diabetes Mellitus Type 2 Renal/ Medical History: Reports: Hx Benign Prostatic Hyperplasia. Denies: Hx Peritoneal Dialysis GI Medical History: Denies: Hx Hepatitis, Hx Hiatal Hernia, Hx Ulcer Musculoskeltal Medical History: Reports Hx Arthritis, Reports Hx Musculoskeletal Deformity, Reports Hx Musculoskeletal Trauma Psychiatric Medical History: Denies: Hx Depression Infectious Medical History: Denies: Hx Hepatitis Past Surgical History: Reports: Hx Cholecystectomy, Hx Orthopedic Surgery - bilat Total Knee Replacement, left AKA. Denies: Hx Open Heart Surgery, Hx Pacemaker - Immunizations Hx Diphtheria, Pertussis, Tetanus Vaccination: No Physical Exam - Vital signs Vitals: Temp Pulse Resp BP Pulse Ox 98.7 F 34 L 16 131/67 H 100 11/08/18 16:50 11/08/18 16:50 11/08/18 16:50 11/08/18 16:50 11/08/18 16:50 Course - Vital Signs Vital signs: Temp Pulse Resp BP Pulse Ox 98.7 F 34 L 16 131/67 H 100 11/08/18 16:50 11/08/18 16:50 11/08/18 16:50 11/08/18 16:50 11/08/18 16:50 Doctor's Discharge - Discharge Referrals: TOMY CROCKER MD [Primary Care Provider] - Follow up as needed
[2018-11-08 18:11] LABS: ABSOLUTE EOSINOPHILS # (AUTO) 0.1 10^3/uL (0.0-0.6); ABSOLUTE LYMPHOCYTES (AUTO) 1.7 10^3/uL (0.5-4.7); ABSOLUTE MONOCYTES (AUTO) 0.4 10^3/uL (0.1-1.4); ABSOLUTE NEUT (AUTO) 1.9 10^3/uL (1.7-8.2); BASOPHILS % (AUTO) 1.1 % (0-2); HEMATOCRIT 32.1 % (37.9-51.0); HEMOGLOBIN 10.7 g/dL (13.5-17.0); LYMPHOCYTES % (AUTO) 41.4 % (13-45); MEAN CORPUSCULAR HEMOGLOBIN 31.2 pg (27.0-33.4); MEAN CORPUSCULAR HGB CONC 33.4 g/dL (32.0-36.0); MEAN CORPUSCULAR VOLUME 94 fl (80-97); MONOCYTES % (AUTO) 9.8 % (3-13); PLATELET COUNT 227 10^3/uL (150-450); RED BLOOD COUNT 3.43 10^6/uL (4.35-5.55); RED CELL DISTRIBUTION WIDTH 15.3 % (11.5-14.0); SEGMENTED NEUTROPHILS % (AUTO) 44.7 % (42-78); TOTAL CELLS COUNTED % (AUTO) 100 %; WHITE BLOOD COUNT 4.2 10^3/uL (4.0-10.5)
--- NOTE | 2018-11-08 18:18 | ER Document Report ---
ED General - General Chief Complaint: Abnormal Lab Results Stated Complaint: POSSIBLE HYPERKALEMIA Time Seen by Provider: 11/08/18 18:18 Primary Care Provider: TOMY CROCKER MD [Primary Care Provider] - Follow up as needed Mode of Arrival: Wheelchair Information source: Patient Notes: HISTORY OF PRESENT ILLNESS: Patient is a 73-year-old male with a past medical history of several chronic health conditions including peripheral vascular disease and chronic renal failure who presents with reported worsening renal failure and hyperkalemia as the patient was sent from his physician's office to the hospital. Location: Global Onset: Unknown Provocation: None Quality: "I feel normal" Radiation: None Severity: Mild to moderate Timing: Constant Associated symptoms: No fever or chills, no cough or congestion, no decrease or changes in urination REVIEW OF SYSTEMS: CONSTITUTIONAL : Denies fever or chills, no sweats. Denies recent illness. EENT: Denies eye, ear, throat, or mouth pain or symptoms. Denies nasal or sinus congestion. CARDIOVASCULAR: Denies chest pain. RESPIRATORY: Denies cough, cold, or chest congestion. Denies shortness of breath, difficulty breathing, or wheezing. GASTROINTESTINAL: Denies abdominal pain. Denies nausea, vomiting, or diarrhea. Denies constipation. GENITOURINARY: Denies difficulty urinating, painful urination, burning, frequency, or blood in urine. MUSCULOSKELETAL: Denies neck or back pain or joint pain or swelling. SKIN: Denies rash or skin lesions. HEMATOLOGIC : Denies easy bruising or bleeding. LYMPHATIC: Denies swollen, enlarged glands. NEUROLOGICAL: Denies altered mental status or loss of consciousness. Denies headache. Denies weakness or paralysis or loss of use of either side. Denies problems with gait or speech. Denies sensory or motor loss. PSYCHIATRIC: Denies anxiety or stress or depression. All other systems reviewed and negative. PHYSICAL EXAMINATION: GENERAL: Well-appearing, well-nourished and in no acute distress. HEAD: Atraumatic, normocephalic. No scalp deformity, depression, or crepitance. EYES: Pupils are 3 mm and equal/round/reactive to light, extraocular movements intact, sclera anicteric, conjunctiva are normal. ENT: Nares patent bilaterally, oropharynx clear without exudates or palatal petechia. Moist mucous membranes. No tonsil hypertrophy. NECK: Normal range of motion, supple without lymphadenopathy. LUNGS: Breath sounds present, equal, and clear to auscultation bilaterally. No wheezes, rales, or rhonchi. HEART: Regular rate and rhythm without murmurs, rubs, or gallops. 2+ peripheral pulses. Normal capillary refill. ABDOMEN: Soft, nontender, nondistended. Normoactive bowel sounds. No guarding, no rebound. No masses appreciated. BACK: Normal contour, no midline tenderness. Rectal exam deferred. GENITAL: Deferred. EXTREMITIES: Normal range of motion, no pitting or edema. No cyanosis. NEUROLOGICAL: No focal neurological deficits. Moves all extremities spontaneously and on command. PSYCH: Normal mood, normal affect. No suicidal thoughts/ideations. No homocidal thoughts/ideations. No hallucinations. SKIN: Warm, dry, normal turgor, no rashes or lesions noted. ASSESSMENT AND PLAN: This patient is a 73-year-old male who presents with report of acute on chronic renal failure with hyperkalemia. Exam is unremarkable and the patient feels like his normal self. 1. Will obtain labs and reassess. 2. Will consider correcting potassium is still elevated and disposition accordingly. TRAVEL OUTSIDE OF THE [place] IN LAST 30 DAYS: No - Related Data Allergies/Adverse Reactions: No Known Allergies Allergy (Verified 12/22/17 20:15) Past Medical History - General Information source: Patient - Social History Smoking Status: Smoker,Current Status Unk Chew tobacco use (# tins/day): No Frequency of alcohol use: None Drug Abuse: None Lives with: Alone Family History: Reviewed & Not Pertinent Patient has suicidal ideation: No Patient has homicidal ideation: No - Past Medical History Cardiac Medical History: Reports: Hx Atrial Fibrillation, Hx Hypertension, Hx Peripheral Vascular Disease Denies: Hx Heart Attack Pulmonary Medical History: Reports: Hx Asthma, Hx COPD Denies: Hx Tuberculosis EENT Medical History: Reports: None Neurological Medical History: Reports: Hx Cerebrovascular Accident - with left sided weakness. medications: Warfarin, Dilantin, Flomax, Hx Seizures Endocrine Medical History: Reports: Hx Diabetes Mellitus Type 2 Renal/ Medical History: Reports: Hx Benign Prostatic Hyperplasia, Hx End Stage Renal Disease. Denies: Hx Peritoneal Dialysis Malignancy Medical History: Reports None GI Medical History: Reports: Hx Gastroesophageal Reflux Disease. Denies: Hx Hepatitis, Hx Hiatal Hernia, Hx Ulcer Musculoskeletal Medical History: Reports Hx Arthritis - osteoarthritis, Reports Hx Musculoskeletal Deformity, Reports Hx Musculoskeletal Trauma Skin Medical History: Reports None Psychiatric Medical History: Reports: Hx Bipolar Disorder, Hx Depression - anxiety Traumatic Medical History: Reports: None Infectious Medical History: Reports: None. Denies: Hx Hepatitis Surgical Hx: Negative Past Surgical History: Reports: Hx Cholecystectomy, Hx Orthopedic Surgery - bila t Total Knee Replacement, left AKA. Denies: Hx Open Heart Surgery, Hx Pacemaker - Immunizations Immunizations up to date: Yes Hx Diphtheria, Pertussis, Tetanus Vaccination: No History of Influenza Vaccine for 06/2017 - 11/2017 Season: Unknown Hx Pneumococcal Vaccination: 09/13/13 Physical Exam - Vital signs Vitals: Temp Pulse Resp BP Pulse Ox 98.7 F 34 L 16 131/67 H 100 11/08/18 16:50 11/08/18 16:50 11/08/18 16:50 11/08/18 16:50 11/08/18 16:50 Course - Re-evaluation Re-evalutation: 11/09/18 02:56 Initial blood work shows baseline chronic renal failure with a creatinine of 1.7. Patient also had a potassium of 6 which is only mildly higher than his last several blood draws that averaged around 5.5, however the patient was still given insulin/glucose as well as oral Kayexalate. His potassium has now improved to normal. He will be discharged home with return precautions and follow-up. Patient reports understanding and agreeing with the plan. - Vital Signs Vital signs: Temp Pulse Resp BP Pulse Ox 98.7 F 34 L 18 122/74 99 11/08/18 16:50 11/08/18 16:50 11/09/18 02:40 11/09/18 02:40 11/09/18 02:04 - Laboratory Result Diagrams: 11/08/18 17:55 11/09/18 02:00 Laboratory results interpreted by me: 11/08/18 11/08/18 17:55 17:55 RBC 3.43 L Hgb 10.7 L Hct 32.1 L RDW 15.3 H Potassium 6.0 H* Chloride 118 H Carbon Dioxide 19 L BUN 53 H Creatinine 1.76 H Est GFR ( Amer) 46 L Est GFR (Non-Af Amer) 38 L Glucose 74 L ALT 18 L - EKG Interpretation by Tx Rate: Normal Rhythm: A.Fib [place]/QRS: No: Right axis deviation, Left axis deviation, RBBB, LBBB, IVCD, LAHB/LAFB, LPHB/LPFB, Bifasicular block Voltage: No: Increased voltage, Consistant with LVH, Decreased voltage, Throughout, Limb leads P Waves: No: KULWANT, LAE, Absent, AV Dissociation, Other Heart block present: No: 1st Degree, Mobitz 1, Mobitz 2, CHB (3rd degree block) When compared to previous EKG there are: No significant change Discharge - Discharge Clinical Impression: Hyperkalemia Chronic renal failure Qualifiers: Chronic kidney disease stage: unspecified stage Qualified Code(s): N18.9 - Chronic kidney disease, unspecified Condition: Good Disposition: HOME, SELF-CARE Instructions: Kidney Failure ([facility]) Additional Instructions: You have been evaluated in the Emergency Department for having an elevated potassium. While here, you had medications that lowered her potassium and it is now safe to be discharged home. Please follow-up with your primary physician as instructed in 1 week to be reevaluated. Return to the Emergency Department if you experience weakness, chest pain, confusion/disorientation, or any other concerning symptoms. Referrals: TOMY CROCKER MD [Primary Care Provider] - Follow up as needed Print Language: Bermudian
[2018-11-08 18:27] LABS: ALANINE AMINOTRANSFERASE 18 U/L (21-72); ALKALINE PHOSPHATASE 115 U/L (38-126); ANION GAP 8 (5-19); ASPARTATE AMINO TRANSFERASE 29 U/L (17-59); BILIRUBIN,DIRECT 0.4 mg/dL (0.0-0.4); BILIRUBIN,TOTAL 0.4 mg/dL (0.2-1.3); BLOOD UREA NITROGEN 53 mg/dL (7-20); CALCIUM 9.4 mg/dL (8.4-10.2); CARBON DIOXIDE 19 mmol/L (22-30); CHLORIDE 118 mmol/L (98-107); GLUCOSE 74 mg/dL (75-110); SODIUM 144.9 mmol/L (137-145); TOTAL PROTEIN 7.7 g/dL (6.3-8.2)
[2018-11-08] MEDS ORDERED: DEXTROSE 50%-WATER 25 GM/50 ML DISP.SYRIN IV ONE ×2 (20:59→23:59)
[2018-11-08] MEDS ORDERED: INSULIN REG, HUMAN 100 UNIT/ML 3 ML VIAL (PYX) IV ONE ×2 (20:59→23:59)
[2018-11-08] MEDS ORDERED: SODIUM POLYSTYRENE SULFONATE 15 GM/60 ML PO ONE ×2 (20:59→23:59)
[2018-11-09 03:11] VITALS: BP 133/86
--- NOTE | 2018-11-09 10:18 | EKG REPORT ---
SEVERITY:- ABNORMAL ECG - ATRIAL FIBRILLATION LEFT ANTERIOR FASCICULAR BLOCK ANTERIOR INFARCT, AGE INDETERMINATE : Confirmed by: Brian Rodriguez 09-Nov-2018 10:17:51
== END 2018-11-09 04:14 | disposition home or self-care (01) ==
LOC: ER 16:40
DX: E87.5 Hyperkalemia (principal); N18.9 Chronic kidney disease, unspecified; F17.200 Nicotine dependence, unspecified, uncomplicated; I48.91 Unspecified atrial fibrillation; I10 Essential (primary) hypertension; I69.954 Hemiplegia and hemiparesis following unspecified cerebrovascular disease affecting left non-dominant side; E11.9 Type 2 diabetes mellitus without complications; Z89.612 Acquired absence of left leg above knee; Z90.49 Acquired absence of other specified parts of digestive tract; Z96.653 Presence of artificial knee joint, bilateral
CPT/HCPCS: 93005; 99284; 36415; 84132; 85025; 80053; 93010; J3490; A9270; J1815

== ENCOUNTER 2019-01-10 16:50 | Inpatient (IN) | payer MEDICARE, MEDICAID ==
[2019-01-10 17:15] LABS: ABSOLUTE LYMPHOCYTES (AUTO) 1.3 10^3/uL (0.5-4.7); ABSOLUTE MONOCYTES (AUTO) 0.5 10^3/uL (0.1-1.4); ABSOLUTE NEUT (AUTO) 11.6 10^3/uL (1.7-8.2); BASOPHILS % (AUTO) 0.1 % (0-2); HEMATOCRIT 33.7 % (37.9-51.0); LYMPHOCYTES % (AUTO) 9.7 % (13-45); MEAN CORPUSCULAR HEMOGLOBIN 30.7 pg (27.0-33.4); MEAN CORPUSCULAR HGB CONC 32.6 g/dL (32.0-36.0); MEAN CORPUSCULAR VOLUME 94 fl (80-97); MONOCYTES % (AUTO) 3.4 % (3-13); PLATELET COUNT 172 10^3/uL (150-450); RED BLOOD COUNT 3.58 10^6/uL (4.35-5.55); RED CELL DISTRIBUTION WIDTH 14.7 % (11.5-14.0); SEGMENTED NEUTROPHILS % (AUTO) 86.8 % (42-78); TOTAL CELLS COUNTED % (AUTO) 100 %; WHITE BLOOD COUNT 13.4 10^3/uL (4.0-10.5)
[2019-01-10 17:29] LABS: INTERNATIONAL RATION (INR) 1.52; PROTHROMBIN TIME 19.1 SEC (11.4-15.4)
[2019-01-10 17:35] LABS: ALANINE AMINOTRANSFERASE 23 U/L (21-72); ALBUMIN 3.3 g/dL (3.5-5.0); ALKALINE PHOSPHATASE 115 U/L (38-126); ANION GAP 10 (5-19); ASPARTATE AMINO TRANSFERASE 30 U/L (17-59); BILIRUBIN,DIRECT 0.4 mg/dL (0.0-0.4); BILIRUBIN,TOTAL 0.7 mg/dL (0.2-1.3); BLOOD UREA NITROGEN 49 mg/dL (7-20); CARBON DIOXIDE 19 mmol/L (22-30); CHLORIDE 116 mmol/L (98-107); GLUCOSE 76 mg/dL (75-110); POTASSIUM 5.2 mmol/L (3.6-5.0); TOTAL PROTEIN 7.2 g/dL (6.3-8.2)
[2019-01-10] MEDS ORDERED: CEFTRIAXONE 1 GM/D5W RTU 1 GM/50 ML RTUPB IV ONE (17:36)
--- NOTE | 2019-01-10 18:11 | RADIOLOGY REPORT (SQ) ---
EXAM DESCRIPTION: CHEST SINGLE VIEW COMPLETED DATE/TIME: 01/10/2019 5:53 pm REASON FOR STUDY: cough COMPARISON: 04/15/2016 NUMBER OF VIEWS: One view. TECHNIQUE: Single frontal radiographic image of the chest acquired. LIMITATIONS: None. FINDINGS: LUNGS AND PLEURA: There is right lower lobe airspace disease consistent with pneumonia. L eft lung field is clear. MEDIASTINUM AND HILAR STRUCTURES: Unremarkable. HEART AND VASCULAR STRUCTURES: Normal in size. No failure. BONES: No acute findings. OTHER: No other significant finding. IMPRESSION: Right lower lobe infiltrate consistent with pneumonia. TECHNICAL DOCUMENTATION: JOB ID: [id number] [employer]- All Rights Reserved Reading location - IP/workstation name: [email or web address]
[2019-01-10 18:17] LABS: VENOUS BLOOD BASE EXCESS -6.5 mmol/L; VENOUS BLOOD HCO3 19.3 mmol/L (20-32); VENOUS BLOOD PCO2 39.3 mmHg (35-63); VENOUS BLOOD PH 7.31 (7.30-7.42)
--- NOTE | 2019-01-10 18:25 | ER Document Report ---
ED General - General Chief Complaint: Urinary Problem Stated Complaint: URINARY FREQUENCY Time Seen by Provider: 01/10/19 17:21 Primary Care Provider: TOMY CROCKER MD [Primary Care Provider] - Follow up as needed Mode of Arrival: Medic Information source: Emergency Med Personnel Cannot obtain history due to: Dementia Notes: Patient is a 73-year-old male was brought in by EMS from [facility] where he resides. The history is difficult to ascertain however nursing reports the patient had a temp of 102.8 when EMS was called up there for some kind of a knee injury. When they got there they found him to be short of breath with difficulty with concentration and thinking unable to tell us where he is at. EMS did not report any further findings on their initial intervention and their trip into the emergency room. They did note that the patient's pulse ox was dipping down slightly low into the low 90s on the right hand. Also noted patient's blood pressure to be somewhat low as well. He is also tachycardic. There is lactic acid on site was normal and here we are attempting to wait for it. Patient was given 975 mg of Tylenol on the right hand. As stated lactic acid by EMS 1.6. Was also reported by some of the care staff that he has had some urinary frequency and has had a junky cough. We were not provided with any more hours from the facility. I am informed that this is Dr. Crocker's patient. TRAVEL OUTSIDE OF THE [place] IN LAST 30 DAYS: No - HPI Onset: Other Onset/Duration: Gradual Quality of pain: Achy Severity: Moderate Pain Level: 3 Associated symptoms: Body/muscle aches, Chills, Fever, Shortness of breath. denies: Rhinnorhea, Sinus pain/drainage, Sore throat, Sweating, Weakness Exacerbated by: Denies Relieved by: Denies Similar symptoms previously: No Recently seen / treated by doctor: No - Related Data Allergies/Adverse Reactions: No Known Allergies Allergy (Verified 12/22/17 20:15) Past Medical History - General Information source: Emergency Med Personnel, [facility] Records Cannot obtain history due to: Dementia, Unstable vital signs, Altered mental status - Social History Smoking Status: Current Every Day Smoker Cigarette use (# per day): No Chew tobacco use (# tins/day): No Smoking Education Provided: No Frequency of alcohol use: None Drug Abuse: None Lives with: Alone, Skilled Nursing Family History: Reviewed & Not Pertinent Patient has suicidal ideation: No Patient has homicidal ideation: No - Past Medical History Cardiac Medical History: Reports: Hx Atrial Fibrillation, Hx Hypertension, Hx Peripheral Vascular Disease Denies: Hx Heart Attack Pulmonary Medical History: Reports: Hx Asthma, Hx COPD Denies: Hx Tuberculosis Neurological Medical History: Reports: Hx Cerebrovascular Accident - with left sided weakness. medications: Warfarin, Dilantin, Flomax, Hx Seizures Endocrine Medical History: Reports: Hx Diabetes Mellitus Type 2 Renal/ Medical History: Reports: Hx Benign Prostatic Hyperplasia, Hx End Stage Renal Disease. Denies: Hx Peritoneal Dialysis GI Medical History: Reports: Hx Gastroesophageal Reflux Disease. Denies: Hx Hepatitis, Hx Hiatal Hernia, Hx Ulcer Musculoskeletal Medical History: Reports Hx Arthritis - osteoarthritis, Reports Hx Musculoskeletal Deformity, Reports Hx Musculoskeletal Trauma Psychiatric Medical History: Reports: Hx Bipolar Disorder, Hx Depression - anxiety Infectious Medical History: Denies: Hx Hepatitis Past Surgical History: Reports: Hx Cholecystectomy, Hx Orthopedic Surgery - bilat Total Knee Replacement, left AKA. Denies: Hx Open Heart Surgery, Hx Pacemaker - Immunizations Immunizations up to date: Yes Hx Diphtheria, Pertussis, Tetanus Vaccination: No Hx Pneumococcal Vaccination: 09/13/13 Review of Systems - Review of Systems Constitutional: See HPI, Fever, Weakness EENT: No symptoms reported Cardiovascular: No symptoms reported Respiratory: See HPI, Cough, Short of breath, Wheezing Gastrointestinal: No symptoms reported Genitourinary: No symptoms reported Male Genitourinary: No symptoms reported Musculoskeletal: No symptoms reported Skin: No symptoms reported Hematologic/Lymphatic: No symptoms reported Neurological/Psychological: No symptoms reported -: Yes All other systems reviewed and negative Physical Exam - Vital signs Vitals: Temp Resp BP Pulse Ox 102.9 F H 27 H 88/62 L 95 01/10/19 16:56 01/10/19 16:56 01/10/19 16:56 01/10/19 16:56 Interpretation: Hypotensive, Tachycardic - Notes Notes: PHYSICAL EXAMINATION: GENERAL: Patient is a slightly disheveled appearing 73-year-old male who also appears somewhat cachectic in appearance. He is in no apparent distress on physical exam tonight but he does appear extremely ill. Patient expresses himself as being confused moderately. He does not know the date he thinks is 1976 he does not know how old he is he thinks he is 23. He has no major complaints on physical examination. The patient does appear extremely ill. HEAD: Atraumatic, normocephalic. EYES: Pupils equal round and reactive to light, extraocular movements intact, sclera anicteric, conjunctiva are normal. ENT: Nares patent, oropharynx clear without exudates. Moist mucous membranes. NECK: Normal range of motion, supple without lymphadenopathy patient moves his neck freely without any signs of discomfort or pain. Palpation does not elicit any type of discomfort response. LUNGS: Some end expiratory wheeze noted right greater than left. Auscultation patient's lung fajardo shows he has bilateral breath sounds breath sounds are decreased throughout with patient displays some right-sided rhonchi with inspiration and expiration both. He coughs and does have some clearing. HEART: Tachycardic rate and rhythm without murmurs ABDOMEN: Soft, nontender, nondistended abdomen. No guarding, no rebound. No masses appreciated. Musculoskeletal: Normal range of motion, no pitting or edema. No cyanosis. Patient has a left-sided AKA NEUROLOGICAL: Neurologically patient is difficult to ascertain. He is awake and talking but he is confused to person place and time. PSYCH: Flat a fact SKIN: Warm, Dry, normal turgor, no rashes or lesions noted. Course - Re-evaluation Re-evalutation: 01/10/19 20:02 Patient state emergency room was extended secondary to the quantity of patients. He has also gotten slightly increased responsiveness from the fluids and from the antibiotics. He is still weak his blood pressure has come up to 112/62 his heart rates come down to 93 and he is satting now 98% on 2 L. - Vital Signs Vital signs: Temp Pulse Resp BP Pulse Ox 102.9 F H 89 23 H 107/64 97 01/10/19 16:56 01/10/19 18:17 01/10/19 18:11 01/10/19 18:11 01/10/19 18:06 - Laboratory Result Diagrams: 01/10/19 16:40 01/10/19 16:40 Laboratory results interpreted by me: 01/10/19 01/10/19 01/10/19 16:40 16:40 16:40 WBC 13.4 H RBC 3.58 L Hgb 11.0 L Hct 33.7 L RDW 14.7 H Seg Neutrophils % 86.8 H Lymphocytes % 9.7 L Absolute Neutrophils 11.6 H PT 19.1 H VBG HCO3 Potassium 5.2 H Chloride 116 H Carbon Dioxide 19 L BUN 49 H Creatinine 1.93 H Est GFR ( Amer) 41 L Est GFR (Non-Af Amer) 34 L Albumin 3.3 L 01/10/19 18:00 WBC RBC Hgb Hct RDW Seg Neutrophils % Lymphocytes % Absolute Neutrophils PT VBG HCO3 19.3 L Potassium Chloride Carbon Dioxide BUN Creatinine Est GFR ( Amer) Est GFR (Non-Af Amer) Albumin Discharge - Discharge Clinical Impression: Right lower lobe pneumonia Qualifiers: Pneumonia type: due to unspecified organism Qualified Code(s): J18.1 - Lobar pneumonia, unspecified organism Condition: Stable Disposition: ADMITTED INPATIENT Admitting Provider: Lia Unit Admitted: IMCU Referrals: TOMY CROCKER MD [Primary Care Provider] - Follow up as needed
[2019-01-10] MEDS ORDERED: AZITHROMYCIN INJ 500 MG VIAL IV ONE (19:22)
[2019-01-10] MEDS ORDERED: NORMAL SALINE 1000 ML 1,000 ML IV ONE (19:22)
--- NOTE | 2019-01-10 21:13 | PDOC H&P ---
History of Present Illness Admission Date/PCP: 01/10/19 21:00 TOMY CROCKER MD History of Present Illness: GRAYSON BURCH is a 73 year old male,He was transferred from assisted living facility to the emergency room for evaluation of fever, shortness of breath. In the emergency room he was found to have a low oxygen saturation also found was a low blood pressure, he was very confused. Chest x-ray showed right lower lobe pneumonia.History taking is difficult from this patient because he is lethargic and confused. In the emergency room he was found to have a temperature of 102.8, he was also fluid resuscitated in the emergency room because of extremely low blood pressure and he was also tachypneic with increased work of breathing requiring noninvasive positive pressure ventilation, BiPAP when I saw him he was very confused difficult to obtain history I relied on the notes from the emergency room and also from his place of residence. But patient is well-known to me from previous encounter, he has a history of COPD still actively smoking history of CKD stage III history of atrial fibrillation on anticoagulation Past Medical History Cardiac Medical History: Reports: Atrial Fibrillation, Hypertension, Peripheral Vascular Disease Pulmonary Medical History: Reports: Asthma, Chronic Obstructive Pulmonary Disease (COPD) Neurological Medical History: Reports: Seizures Endocrine Medical History: Reports: Diabetes Mellitus Type 2 Renal/ Medical History: Reports: End Stage Renal Disease GI Medical History: Reports: Gastroesophageal Reflux Disease Musculoskeltal Medical History: Reports: Arthritis - osteoarthritis Psychiatric Medical History: Reports: Bipolar Disorder, Depression - anxiety Hematology: Reports: Anemia Past Surgical History Past Surgical History: Reports: Cholecystectomy, Orthopedic Surgery - bilat Total Knee Replacement, left AKA Social History Lives with: Alone, Longterm Smoking Status: Current Every Day Smoker Frequency of Alcohol Use: None Hx Recreational Drug Use: No Drugs: None Hx Prescription Drug Abuse: No Family History Family History: Reviewed & Not Pertinent Parental Family History Reviewed: Yes Children Family History Reviewed: Yes Sibling(s) Family History Reviewed.: Yes Medication/Allergy Home Medications: Acetaminophen [Tylenol 325 mg Tablet] 650 mg PO Q6HP PRN 01/11/19 Apixaban [Eliquis 2.5 mg Tablet] 2.5 mg PO BID 01/11/19 Aripiprazole [Abilify 5 mg Tablet] 5 mg PO DAILY 01/11/19 Atorvastatin Calcium [Lipitor 20 mg Tablet] 20 mg PO QHS 01/11/19 Diltiazem HCl [Cartia Xt] 240 mg PO DAILY 01/11/19 Finasteride [Proscar 5 mg Tablet] 5 mg PO DAILY 01/11/19 Hyoscyamine Sulfate [Levsin 0.125 Tablet] 0.125 mg PO Q4HP PRN 01/11/19 Levetiracetam [Keppra] 1,000 mg PO Q12 01/11/19 Mirabegron [Myrbetriq] 25 mg PO DAILY 01/11/19 Montelukast Sodium [Singulair 10 mg Tablet] 10 mg PO QHS 01/11/19 Phenytoin Sodium Extended [Dilantin 100 mg Capsule.er] 100 mg PO Q12 01/11/19 Polyethylene Glycol 3350 [Miralax Powder 17 gm/Packet] 1 packet PO DAILY 01/11/19 Sertraline HCl [Zoloft 50 mg Tablet] 50 mg PO DAILY 01/11/19 Tamsulosin HCl [Flomax 0.4 mg Cap.sr] 0.4 mg PO QHS 01/11/19 Tramadol HCl [Ultram 50 mg Tablet] 50 mg PO Q8HP PRN 01/11/19 Allergies/Adverse Reactions: No Known Allergies Allergy (Verified 12/22/17 20:15) Review of Systems ROS unobtainable: Due to mental status Physical Exam Vital Signs: Temp Pulse Resp BP Pulse Ox 99.1 F 89 22 H 119/81 98 01/10/19 20:29 01/10/19 18:17 01/10/19 20:26 01/10/19 20:26 01/10/19 20:26 Intake & Output 01/09/19 01/10/19 01/11/19 06:59 06:59 06:59 Intake Total 50 Balance 50 Head exam: PRESENT: atraumatic, normocephalic Eye exam: PRESENT: PERRLA Mouth exam: PRESENT: moist, tongue midline Neck exam: PRESENT: full ROM Respiratory exam: PRESENT: decreased breath sounds, wheezes Cardiovascular exam: PRESENT: RRR, +S1, +S2, systolic murmur Vascular exam: PRESENT: normal capillary refill GI/Abdominal exam: PRESENT: soft Rectal exam: PRESENT: deferred Extremities exam: PRESENT: left AKA Neurological exam: PRESENT: alert Skin exam: PRESENT: dry, intact, warm Results Laboratory Results: 01/10/19 16:40 01/10/19 16:40 01/10/19 01/10/19 01/10/19 16:40 16:40 18:00 WBC 13.4 H RBC 3.58 L Hgb 11.0 L Hct 33.7 L MCV 94 MCH 30.7 MCHC 32.6 RDW 14.7 H Plt Count 172 Seg Neutrophils % 86.8 H Lymphocytes % 9.7 L Monocytes % 3.4 Eosinophils % 0.0 Basophils % 0.1 Absolute Neutrophils 11.6 H Absolute Lymphocytes 1.3 Absolute Monocytes 0.5 Absolute Eosinophils 0.0 Absolute Basophils 0.0 VBG pH VBG pCO2 VBG HCO3 VBG Base Excess Sodium 145.0 Potassium 5.2 H Chloride 116 H Carbon Dioxide 19 L Anion Gap 10 BUN 49 H Creatinine 1.93 H Est GFR ( Amer) 41 L Est GFR (Non-Af Amer) 34 L Glucose 76 Lactic Acid 1.6 Calcium 9.0 Total Bilirubin 0.7 AST 30 ALT 23 Alkaline Phosphatase 115 Total Protein 7.2 Albumin 3.3 L 01/10/19 18:00 WBC RBC Hgb Hct MCV MCH MCHC RDW Plt Count Seg Neutrophils % Lymphocytes % Monocytes % Eosinophils % Basophils % Absolute Neutrophils Absolute Lymphocytes Absolute Monocytes Absolute Eosinophils Absolute Basophils VBG pH 7.31 VBG pCO2 39.3 VBG HCO3 19.3 L VBG Base Excess -6.5 Sodium Potassium Chloride Carbon Dioxide Anion Gap BUN Creatinine Est GFR ( Amer) Est GFR (Non-Af Amer) Glucose Lactic Acid Calcium Total Bilirubin AST ALT Alkaline Phosphatase Total Protein Albumin 01/10/19 16:40 Troponin I 0.065 Impressions: Chest X-Ray 01/10/19 17:34 IMPRESSION: Right lower lobe infiltrate consistent with pneumonia. Assessment & Plan - Diagnosis (1) Right lower lobe pneumonia Qualifiers: Pneumonia type: due to unspecified organism Qualified Code(s): J18.1 - Lobar pneumonia, unspecified organism Is this a current diagnosis for this admission?: Yes Plan: Treat patient with IV antibiotic to cover potential pathogens (2) Acute kidney injury Is this a current diagnosis for this admission?: Yes Plan: He has underlying chronic kidney disease with acute kidney injury (3) Metabolic acidosis Is this a current diagnosis for this admission?: Yes (4) Chronic kidney disease, stage 3 Is this a current diagnosis for this admission?: Yes
[2019-01-10 21:26] LABS: AMORPHOUS SEDIMENT,URINE TRACE /HPF; APPEARANCE,URINE CLOUDY; BILIRUBIN,URINE NEGATIVE (NEGATIVE); COLOR,URINE YELLOW; GLUCOSE, URINE NEGATIVE (NEGATIVE); KETONES,URINE NEGATIVE (NEGATIVE); LEUKOCYTE ESTERASE,URINE LARGE (NEGATIVE); NITRITE,URINE NEGATIVE (NEGATIVE); PROTEIN,URINE >=500 mg/dL (NEGATIVE); URINE SPECIFIC GRAVITY 1.017
[2019-01-10] MEDS: LEVOFLOXACIN 750 MG/D5W RTU 750 MG/150 ML RTUPB IV SCH (21:44)
[2019-01-10] MEDS: NORMAL SALINE 1000 ML 1,000 ML IV PRN (21:44)
[2019-01-10] MEDS ORDERED: HEPARIN SOD (PORCINE) 5,000 UNIT/ML 1 ML SYRINGE SUBCUT SCH (22:00)
[2019-01-10] MEDS ORDERED: CEFEPIME 2 GM/D5W RTU 2 GM/50 ML RTUPB IV SCH (22:00)
[2019-01-10 22:43] LABS: CREATINE KINASE MB 0.55 ng/mL (<4.55)
[2019-01-10 22:48] LABS: TROPONIN I 0.059 ng/mL
--- NOTE | 2019-01-10 23:30 | EKG REPORT ---
SEVERITY:- ABNORMAL ECG - ATRIAL FIBRILLATION LEFT AXIS DEVIATION CONSIDER ANTEROSEPTAL INFARCT NONSPECIFIC T ABNORMALITIES, INFERIOR LEADS : Confirmed by: Brian Rodriguez 10-Jan-2019 23:29:40
[2019-01-10] MEDS ORDERED: ACETAMINOPHEN 325 MG TABLET PO PRN (23:49)
[2019-01-10 23:55] LABS: ARTERIAL BLOOD BASE EXCESS -9.4 mmol/L; ARTERIAL BLOOD H2CO3 1.03 mmol/L (1.05-1.35); ARTERIAL BLOOD HCO3 16.2 mmol/L (20-24); ARTERIAL BLOOD PCO2 34.3 mmHg (35-45); ARTERIAL BLOOD PH 7.29 (7.35-7.45); ARTERIAL BLOOD PO2 121.1 mmHg (80-100); ARTERIAL BLOOD TOTAL CO2 17.2 mmol/L (23-27)
[2019-01-11 00:01] LABS: ARTERIAL BLOOD FIO2 3L
[2019-01-11 09:37] LABS: ABSOLUTE LYMPHOCYTES (AUTO) 1.1 10^3/uL (0.5-4.7); ABSOLUTE MONOCYTES (AUTO) 0.6 10^3/uL (0.1-1.4); ABSOLUTE NEUT (AUTO) 10.7 10^3/uL (1.7-8.2); BASOPHILS % (AUTO) 0.2 % (0-2); HEMATOCRIT 25.7 % (37.9-51.0); LYMPHOCYTES % (AUTO) 8.6 % (13-45); MEAN CORPUSCULAR HEMOGLOBIN 31.2 pg (27.0-33.4); MEAN CORPUSCULAR HGB CONC 32.9 g/dL (32.0-36.0); MEAN CORPUSCULAR VOLUME 95 fl (80-97); MONOCYTES % (AUTO) 4.6 % (3-13); PLATELET COUNT 145 10^3/uL (150-450); RED BLOOD COUNT 2.71 10^6/uL (4.35-5.55); SEGMENTED NEUTROPHILS % (AUTO) 86.6 % (42-78); TOTAL CELLS COUNTED % (AUTO) 100 %; WHITE BLOOD COUNT 12.3 10^3/uL (4.0-10.5)
[2019-01-11 09:41] LABS: HEMOGLOBIN 8.5 g/dL (13.5-17.0)
[2019-01-11] MEDS: LEVALBUTEROL HCL NEB 0.63 MG/3 ML AMPUL NEB PRN (09:42)
[2019-01-11 09:53] LABS: ALANINE AMINOTRANSFERASE 24 U/L (21-72); ALBUMIN 2.4 g/dL (3.5-5.0); ALKALINE PHOSPHATASE 77 U/L (38-126); ANION GAP 9 (5-19); ASPARTATE AMINO TRANSFERASE 24 U/L (17-59); BILIRUBIN,DIRECT 0.4 mg/dL (0.0-0.4); BILIRUBIN,TOTAL 0.4 mg/dL (0.2-1.3); BLOOD UREA NITROGEN 48 mg/dL (7-20); CARBON DIOXIDE 16 mmol/L (22-30); CHLORIDE 121 mmol/L (98-107); GLUCOSE 77 mg/dL (75-110); POTASSIUM 5.3 mmol/L (3.6-5.0); SODIUM 145.6 mmol/L (137-145); TOTAL PROTEIN 5.4 g/dL (6.3-8.2)
[2019-01-11] MEDS: APIXABAN 2.5 MG TABLET PO SCH ×2 (11:00→21:24)
[2019-01-11] MEDS: PHENYTOIN SODIUM EXTENDED 100 MG CAPSULE PO SCH ×2 (11:00→21:24)
[2019-01-11] MEDS: DILTIAZEM HCL 240 MG CAPSULE.CR PO SCH (11:08)
[2019-01-11] MEDS: LEVETIRACETAM 500 MG TABLET PO SCH ×2 (11:08→21:23)
[2019-01-11] MEDS: SENNOSIDES/DOCUSATE 8.6-50 MG 1 EACH TABLET PO SCH (11:09)
[2019-01-11] MEDS: DOCUSATE SODIUM 100 MG CAPSULE PO SCH (11:09)
[2019-01-11] MEDS: FINASTERIDE 5 MG TABLET PO SCH (11:09)
[2019-01-11] MEDS: POLYETHYLENE GLYCOL 3350 POWDER 17 GM/1 PACKET PO SCH (11:10)
[2019-01-11] MEDS: CEFEPIME HCL 2 GM in DEXTROSE 5%-WATER 50 ML IV SCH ×2 (11:10→21:24)
[2019-01-11] MEDS: LEVOFLOXACIN 750 MG/D5W RTU 750 MG/150 ML RTUPB IV SCH (11:12)
[2019-01-11] MEDS: ATORVASTATIN CALCIUM 20 MG TABLET PO SCH (21:24)
--- NOTE | 2019-01-11 22:19 | PDOC PROGRESS REPORT ---
Subjective Progress Note for:: 01/11/19 Subjective:: Patient seen by the bedside, is feeling better Reason For Visit: RLL PNEUMONIA, CKD Physical Exam Vital Signs: Temp Pulse Resp BP Pulse Ox 99.5 F 89 16 125/76 100 01/11/19 20:20 01/11/19 20:20 01/11/19 20:20 01/11/19 20:20 01/11/19 20:20 Intake & Output 01/10/19 01/11/19 01/12/19 06:59 06:59 06:59 Intake Total 1200 623 Balance 1200 623 Weight 62.2 kg General appearance: PRESENT: mild distress Eye exam: PRESENT: PERRLA Respiratory exam: PRESENT: rhonchi Cardiovascular exam: PRESENT: +S1, +S2 GI/Abdominal exam: PRESENT: soft Neurological exam: PRESENT: alert Results Laboratory Results: 01/11/19 08:01 01/11/19 08:01 01/10/19 01/11/19 01/11/19 23:40 08:01 08:01 WBC 12.3 H RBC 2.71 L Hgb 8.5 L D Hct 25.7 L MCV 95 MCH 31.2 MCHC 32.9 RDW 15.0 H Plt Count 145 L Seg Neutrophils % 86.6 H Lymphocytes % 8.6 L Monocytes % 4.6 Eosinophils % 0.0 Basophils % 0.2 Absolute Neutrophils 10.7 H Absolute Lymphocytes 1.1 Absolute Monocytes 0.6 Absolute Eosinophils 0.0 Absolute Basophils 0.0 Carbonic Acid 1.03 L HCO3/H2CO3 Ratio 15:1 ABG pH 7.29 L ABG pCO2 34.3 L ABG pO2 121.1 H ABG HCO3 16.2 L ABG O2 Saturation 98.0 ABG Base Excess -9.4 FiO2 3L Sodium 145.6 H Potassium 5.3 H Chloride 121 H Carbon Dioxide 16 L Anion Gap 9 BUN 48 H Creatinine 1.74 H Est GFR ( Amer) 47 L Est GFR (Non-Af Amer) 38 L Glucose 77 Calcium 8.0 L Total Bilirubin 0.4 AST 24 ALT 24 Alkaline Phosphatase 77 Total Protein 5.4 L Albumin 2.4 L 01/10/19 01/10/19 01/10/19 16:40 22:04 22:04 Creatine Kinase 80 CK-MB (CK-2) 0.55 Troponin I 0.065 0.059 NT-Pro-B Natriuret Pep 9330 H Impressions: Chest X-Ray 01/10/19 17:34 IMPRESSION: Right lower lobe infiltrate consistent with pneumonia. Assessment & Plan - Diagnosis (1) Right lower lobe pneumonia Qualifiers: Pneumonia type: due to unspecified organism Qualified Code(s): J18.1 - Lob ar pneumonia, unspecified organism Is this a current diagnosis for this admission?: Yes Plan: continue IV antibiotic (2) Acute kidney injury Is this a current diagnosis for this admission?: Yes Plan: improving (3) Metabolic acidosis Is this a current diagnosis for this admission?: Yes (4) Chronic kidney disease, stage 3 Is this a current diagnosis for this admission?: Yes
[2019-01-11] MEDS: NORMAL SALINE 1000 ML 1,000 ML IV PRN (23:31)
[2019-01-12 06:29] LABS: ABSOLUTE EOSINOPHILS # (AUTO) 0.1 10^3/uL (0.0-0.6); ABSOLUTE LYMPHOCYTES (AUTO) 1.3 10^3/uL (0.5-4.7); ABSOLUTE MONOCYTES (AUTO) 0.6 10^3/uL (0.1-1.4); ABSOLUTE NEUT (AUTO) 7.4 10^3/uL (1.7-8.2); BASOPHILS % (AUTO) 0.2 % (0-2); EOSINOPHILS % (AUTO) 0.6 % (0-6); MEAN CORPUSCULAR HEMOGLOBIN 31.8 pg (27.0-33.4); MEAN CORPUSCULAR HGB CONC 33.5 g/dL (32.0-36.0); MEAN CORPUSCULAR VOLUME 95 fl (80-97); PLATELET COUNT 131 10^3/uL (150-450); RED BLOOD COUNT 2.53 10^6/uL (4.35-5.55); RED CELL DISTRIBUTION WIDTH 15.2 % (11.5-14.0); SEGMENTED NEUTROPHILS % (AUTO) 79.2 % (42-78); TOTAL CELLS COUNTED % (AUTO) 100 %; WHITE BLOOD COUNT 9.4 10^3/uL (4.0-10.5)
[2019-01-12 06:50] LABS: ALANINE AMINOTRANSFERASE 27 U/L (21-72); ALBUMIN 2.2 g/dL (3.5-5.0); ALKALINE PHOSPHATASE 69 U/L (38-126); ANION GAP 7 (5-19); ASPARTATE AMINO TRANSFERASE 18 U/L (17-59); BILIRUBIN,DIRECT 0.3 mg/dL (0.0-0.4); BILIRUBIN,TOTAL 0.3 mg/dL (0.2-1.3); BLOOD UREA NITROGEN 43 mg/dL (7-20); CARBON DIOXIDE 16 mmol/L (22-30); CHLORIDE 120 mmol/L (98-107); GLUCOSE 74 mg/dL (75-110); POTASSIUM 4.9 mmol/L (3.6-5.0); SODIUM 143.1 mmol/L (137-145); TOTAL PROTEIN 5.1 g/dL (6.3-8.2)
--- NOTE | 2019-01-12 09:55 | Physician Advisory Note ---
Physician Advisor ProgressNote .: Pursuant to the plan for [facility], I have reviewed the medical record for this patient. Physician Advisor Statement: Pt living in NURSING HOME, w/COPD, still smoking, DM-2, ___ type Afib, anemia, CVA w/Lt weakness, ... in w/F/C/SOB/cough/wheezing/body aches/tachycardia/tac hypnea/hypotension/confusion/lethargy/sweating/rhonchi/infiltrate, & developed low O2 sats into the 60s the first night. He was confused, disoriented, & lethargic. ED dr documented pt "appears extremely ill". -H&P does not comment whether there was increased work of breathing or not, but 01/11's PN states "mild distress" [resp distress? psychological distress? ...]. -ED note states pt ROS not possible due to "Dementia" + lethargy .... -ED note indicates prior CVA w/Lt weakness. -H&P's PMH states "ESRD", but Impression states "CKD-3", & pt not on HD, GFR's >15. Ac Resp Failure = Hypoxemia + increased work of breathing Please clarify in documentation: 1. What type of PNA? - ["Gram neg likely given COPD/DM/facility living/..."? or "Gram pos"? or ...?] 2. Did/does pt have "acute hypoxemia"? Was there increased work of breathing or respiratory distress present in association w/his low O2 sats, or not? - Did/does pt have "Acute Respiratory Failure, evidenced by acute hypoxemia into the 60s & ", or not? 3. Did pt have "sepsis, present on adm, evidenced by fever/tachycardia/tachypnea/leukocytosis/hypotension/Altered mental status/DANYA/Hypoxemia/AcuteRespFailure/...", or were these findings better explained by other dx.s [document all applicable dx.s]? - If sepsis was present but any of these findings were present due to PNA alone, or to other dx.s but not due to sepsis, please make it clear which organ dysfunction findings were & were not due to sepsis. 4. Was pt's documented confusion/lethargy due "acute metabolic encephalopathy due to [sepsis? PNA? Ac Resp Failure? Prior CVA? ...]? - How was this different from his baseline? - Does pt have "____ type dementia", too, or not? 5. Does pt have chronic "Lt hemiparesis" due to prior CVA? [or weakness of just 1 extremity, or no residual weakness?] Thanks, CK
[2019-01-12] MEDS: LEVETIRACETAM 500 MG TABLET PO SCH ×2 (10:34→21:21)
[2019-01-12] MEDS: DOCUSATE SODIUM 100 MG CAPSULE PO SCH (10:34)
[2019-01-12] MEDS: FINASTERIDE 5 MG TABLET PO SCH (10:39)
[2019-01-12] MEDS: APIXABAN 2.5 MG TABLET PO SCH ×2 (10:39→21:21)
[2019-01-12] MEDS: SENNOSIDES/DOCUSATE 8.6-50 MG 1 EACH TABLET PO SCH (10:47)
[2019-01-12] MEDS: DILTIAZEM HCL 240 MG CAPSULE.CR PO SCH (10:48)
[2019-01-12] MEDS: PHENYTOIN SODIUM EXTENDED 100 MG CAPSULE PO SCH ×2 (10:48→21:21)
[2019-01-12] MEDS: LEVOFLOXACIN 750 MG/D5W RTU 750 MG/150 ML RTUPB IV SCH (10:49)
[2019-01-12] MEDS: CEFEPIME HCL 2 GM in DEXTROSE 5%-WATER 50 ML IV SCH ×2 (10:53→21:22)
[2019-01-12] MEDS: LEVALBUTEROL HCL NEB 0.63 MG/3 ML AMPUL NEB PRN (12:09)
[2019-01-12] MEDS: POLYETHYLENE GLYCOL 3350 POWDER 17 GM/1 PACKET PO SCH (17:29)
[2019-01-12] MEDS: NORMAL SALINE 1000 ML 1,000 ML IV PRN (20:45)
[2019-01-12] MEDS: ATORVASTATIN CALCIUM 20 MG TABLET PO SCH (21:21)
--- NOTE | 2019-01-12 22:28 | PDOC PROGRESS REPORT ---
Subjective Progress Note for:: 01/12/19 Subjective:: Patient seen by the bedside is improving on present regimen Reason For Visit: RLL PNEUMONIA, CKD Physical Exam Vital Signs: Temp Pulse Resp BP Pulse Ox 98.5 F 65 22 H 117/74 100 01/12/19 19:38 01/12/19 22:00 01/12/19 19:38 01/12/19 19:38 01/12/19 19:38 Intake & Output 01/11/19 01/12/19 01/13/19 06:59 06:59 06:59 Intake Total 1200 2473 1842 Output Total 275 Balance 1200 2198 1842 Weight 62.2 kg 64.4 kg General appearance: PRESENT: no acute distress Eye exam: PRESENT: PERRLA Respiratory exam: PRESENT: rhonchi Cardiovascular exam: PRESENT: +S1, +S2 GI/Abdominal exam: PRESENT: soft Neurological exam: PRESENT: alert Results Laboratory Results: 01/12/19 05:09 01/12/19 05:09 01/12/19 01/12/19 05:09 05:09 WBC 9.4 RBC 2.53 L Hgb 8.0 L Hct 24.0 L MCV 95 MCH 31.8 MCHC 33.5 RDW 15.2 H Plt Count 131 L Seg Neutrophils % 79.2 H Lymphocytes % 14.0 Monocytes % 6.0 Eosinophils % 0.6 Basophils % 0.2 Absolute Neutrophils 7.4 Absolute Lymphocytes 1.3 Absolute Monocytes 0.6 Absolute Eosinophils 0.1 Absolute Basophils 0.0 Sodium 143.1 Potassium 4.9 Chloride 120 H Carbon Dioxide 16 L Anion Gap 7 BUN 43 H Creatinine 1.66 H Est GFR ( Amer) 49 L Est GFR (Non-Af Amer) 41 L Glucose 74 L Calcium 8.0 L Total Bilirubin 0.3 AST 18 ALT 27 Alkaline Phosphatase 69 Total Protein 5.1 L Albumin 2.2 L 01/10/19 21:00 Catheterized Urine Urine Culture - Final 2,000 col/ml 01/10/19 01/10/19 01/10/19 16:40 22:04 22:04 Creatine Kinase 80 CK-MB (CK-2) 0.55 Troponin I 0.065 0.059 NT-Pro-B Natriuret Pep 9330 H Impressions: Chest X-Ray 01/10/19 17:34 IMPRESSION: Right lower lobe infiltrate consistent with pneumonia. Assessment & Plan - Diagnosis (1) Right lower lobe pneumonia Qualifiers: Pneumonia type: due to unspecified organism Qualified Code(s): J18.1 - Lobar pneumonia, unspecified organism Is this a current diagnosis for this admission?: Yes Plan: Treat patient with IV antibiotic to cover potential pathogens (2) Acute kidney injury Is this a current diagnosis for this admission?: Yes (3) Metabolic acidosis Is this a current diagnosis for this admission?: Yes (4) Chronic kidney disease, stage 3 Is this a current diagnosis for this admission?: Yes
[2019-01-13 08:46] LABS: ABSOLUTE EOSINOPHILS # (AUTO) 0.1 10^3/uL (0.0-0.6); ABSOLUTE MONOCYTES (AUTO) 0.5 10^3/uL (0.1-1.4); ABSOLUTE NEUT (AUTO) 5.5 10^3/uL (1.7-8.2); BASOPHILS % (AUTO) 0.3 % (0-2); EOSINOPHILS % (AUTO) 1.6 % (0-6); HEMATOCRIT 24.7 % (37.9-51.0); HEMOGLOBIN 8.2 g/dL (13.5-17.0); LYMPHOCYTES % (AUTO) 13.7 % (13-45); MEAN CORPUSCULAR HEMOGLOBIN 31.4 pg (27.0-33.4); MEAN CORPUSCULAR HGB CONC 33.2 g/dL (32.0-36.0); MEAN CORPUSCULAR VOLUME 95 fl (80-97); MONOCYTES % (AUTO) 7.6 % (3-13); PLATELET COUNT 151 10^3/uL (150-450); SEGMENTED NEUTROPHILS % (AUTO) 76.8 % (42-78); TOTAL CELLS COUNTED % (AUTO) 100 %; WHITE BLOOD COUNT 7.2 10^3/uL (4.0-10.5)
[2019-01-13 09:14] LABS: ALANINE AMINOTRANSFERASE 27 U/L (21-72); ALBUMIN 2.3 g/dL (3.5-5.0); ALKALINE PHOSPHATASE 77 U/L (38-126); ANION GAP 7 (5-19); ASPARTATE AMINO TRANSFERASE 24 U/L (17-59); BILIRUBIN,DIRECT 0.3 mg/dL (0.0-0.4); BILIRUBIN,TOTAL 0.3 mg/dL (0.2-1.3); BLOOD UREA NITROGEN 38 mg/dL (7-20); CALCIUM 8.1 mg/dL (8.4-10.2); CARBON DIOXIDE 15 mmol/L (22-30); CHLORIDE 121 mmol/L (98-107); GLUCOSE 90 mg/dL (75-110); POTASSIUM 4.9 mmol/L (3.6-5.0); TOTAL PROTEIN 5.3 g/dL (6.3-8.2)
[2019-01-13] MEDS: CEFEPIME HCL 2 GM in DEXTROSE 5%-WATER 50 ML IV SCH ×2 (10:21→21:32)
[2019-01-13] MEDS: DOCUSATE SODIUM 100 MG CAPSULE PO SCH (10:23)
[2019-01-13] MEDS: LEVETIRACETAM 500 MG TABLET PO SCH ×2 (10:23→21:32)
[2019-01-13] MEDS: POLYETHYLENE GLYCOL 3350 POWDER 17 GM/1 PACKET PO SCH (10:23)
[2019-01-13] MEDS: SENNOSIDES/DOCUSATE 8.6-50 MG 1 EACH TABLET PO SCH (10:24)
[2019-01-13] MEDS: PHENYTOIN SODIUM EXTENDED 100 MG CAPSULE PO SCH ×2 (10:24→21:31)
[2019-01-13] MEDS: FINASTERIDE 5 MG TABLET PO SCH (10:24)
[2019-01-13] MEDS: APIXABAN 2.5 MG TABLET PO SCH ×2 (10:25→21:33)
[2019-01-13] MEDS: DILTIAZEM HCL 240 MG CAPSULE.CR PO SCH (10:25)
[2019-01-13] MEDS: LEVOFLOXACIN 750 MG/D5W RTU 750 MG/150 ML RTUPB IV SCH (10:29)
[2019-01-13] MEDS: LEVALBUTEROL HCL NEB 0.63 MG/3 ML AMPUL NEB PRN (10:58)
[2019-01-13] MEDS: NORMAL SALINE 1000 ML 1,000 ML IV PRN (20:20)
--- NOTE | 2019-01-13 20:23 | PDOC PROGRESS REPORT ---
Subjective Progress Note for:: 01/13/19 Subjective:: Patient seen by the bedside is improving on present regimen Reason For Visit: RLL PNEUMONIA, CKD Physical Exam Vital Signs: Temp Pulse Resp BP Pulse Ox 98.5 F 66 18 124/71 100 01/13/19 15:19 01/13/19 19:00 01/13/19 15:19 01/13/19 15:19 01/13/19 15:19 Intake & Output 01/12/19 01/13/19 01/14/19 06:59 06:59 06:59 Intake Total 2473 1842 790 Output Total 275 500 700 Balance 2198 1342 90 Weight 64.4 kg 66.1 kg General appearance: PRESENT: no acute distress Eye exam: PRESENT: PERRLA Respiratory exam: PRESENT: rhonchi Cardiovascular exam: PRESENT: +S1, +S2 GI/Abdominal exam: PRESENT: soft Neurological exam: PRESENT: alert Results Laboratory Results: 01/13/19 08:20 01/13/19 08:20 01/13/19 01/13/19 08:20 08:20 WBC 7.2 RBC 2.60 L Hgb 8.2 L Hct 24.7 L MCV 95 MCH 31.4 MCHC 33.2 RDW 15.0 H Plt Count 151 Seg Neutrophils % 76.8 Lymphocytes % 13.7 Monocytes % 7.6 Eosinophils % 1.6 Basophils % 0.3 Absolute Neutrophils 5.5 Absolute Lymphocytes 1.0 Absolute Monocytes 0.5 Absolute Eosinophils 0.1 Absolute Basophils 0.0 Sodium 143.0 Potassium 4.9 Chloride 121 H Carbon Dioxide 15 L Anion Gap 7 BUN 38 H Creatinine 1.53 H Est GFR ( Amer) 54 L Est GFR (Non-Af Amer) 45 L Glucose 90 Calcium 8.1 L Total Bilirubin 0.3 AST 24 ALT 27 Alkaline Phosphatase 77 Total Protein 5.3 L Albumin 2.3 L 01/10/19 01/10/19 01/10/19 16:40 22:04 22:04 Creatine Kinase 80 CK-MB (CK-2) 0.55 Troponin I 0.065 0.059 NT-Pro-B Natriuret Pep 9330 H Impressions: Chest X-Ray 01/10/19 17:34 IMPRESSION: Right lower lobe infiltrate consistent with pneumonia. Assessment & Plan - Diagnosis (1) Right lower lobe pneumonia Qualifiers: Pneumonia type: due to unspecified organism Qualified Code(s): J18.1 - Lobar pneumonia, unspecified organism Is this a current diagnosis for this admission?: Yes Plan: continue IV antibiotic (2) Acute kidney injury Is this a current diagnosis for this admission?: Yes (3) Metabolic acidosis Is this a current diagnosis for this admission?: Yes (4) Chronic kidney disease, stage 3 Is this a current diagnosis for this admission?: Yes
[2019-01-13] MEDS: ATORVASTATIN CALCIUM 20 MG TABLET PO SCH (21:32)
[2019-01-14] MEDS: NORMAL SALINE 1000 ML 1,000 ML IV PRN ×2 (06:47→20:07)
--- NOTE | 2019-01-14 10:08 | PDOC PROGRESS REPORT ---
Subjective Progress Note for:: 01/14/19 Subjective:: Patient is currently doing well he is denied any chest pain to than any shortness of breath Reason For Visit: RLL PNEUMONIA, CKD Physical Exam Vital Signs: Temp Pulse Resp BP Pulse Ox 97.9 F 77 19 124/72 100 01/14/19 07:26 01/14/19 07:26 01/14/19 07:26 01/14/19 07:26 01/14/19 07:26 Intake & Output 01/13/19 01/14/19 01/15/19 06:59 06:59 06:59 Intake Total 2842 2437 Output Total 500 900 Balance 2342 1537 Weight 66.1 kg 66 kg General appearance: PRESENT: no acute distress, well-developed, well-nourished Head exam: PRESENT: atraumatic, normocephalic Eye exam: PRESENT: conjunctiva pink, EOMI, PERRLA. ABSENT: scleral icterus Ear exam: PRESENT: normal external ear exam Mouth exam: PRESENT: moist, tongue midline Neck exam: PRESENT: full ROM. ABSENT: carotid bruit, JVD, lymphadenopathy, thyromegaly Respiratory exam: PRESENT: clear to auscultation kimberly Cardiovascular exam: PRESENT: RRR. ABSENT: diastolic murmur, rubs, systolic murmur Vascular exam: PRESENT: normal capillary refill GI/Abdominal exam: PRESENT: normal bowel sounds, soft. ABSENT: distended, guarding, mass, organolmegaly, rebound, tenderness Rectal exam: PRESENT: deferred Extremities exam: PRESENT: left AKA Neurological exam: PRESENT: alert, awake, oriented to person, oriented to place, oriented to time, oriented to situation. ABSENT: motor sensory deficit Psychiatric exam: PRESENT: appropriate affect, normal mood. ABSENT: homicidal ideation, suicidal ideation Skin exam: PRESENT: dry, intact, warm. ABSENT: cyanosis, rash Results Laboratory Results: 01/13/19 08:20 01/13/19 08:20 01/10/19 01/10/19 01/10/19 16:40 22:04 22:04 Creatine Kinase 80 CK-MB (CK-2) 0.55 Troponin I 0.065 0.059 NT-Pro-B Natriuret Pep 9330 H Impressions: Chest X-Ray 01/10/19 17:34 IMPRESSION: Right lower lobe infiltrate consistent with pneumonia. Assessment & Plan - Diagnosis (1) Chronic kidney disease, stage 3 Is this a current diagnosis for this admission?: Yes (2) Right lower lobe pneumonia Qualifiers: Pneumonia type: due to unspecified organism Qualified Code(s): J18.1 - Lobar pneumonia, unspecified organism Is this a current diagnosis for this admission?: Yes (3) History of CVA (cerebrovascular accident) Is this a current diagnosis for this admission?: Yes - Plan Summary Plan Summary: Continues to current medications
[2019-01-14] MEDS: SENNOSIDES/DOCUSATE 8.6-50 MG 1 EACH TABLET PO SCH (10:31)
[2019-01-14] MEDS: FINASTERIDE 5 MG TABLET PO SCH (10:31)
[2019-01-14] MEDS: DILTIAZEM HCL 240 MG CAPSULE.CR PO SCH (10:32)
[2019-01-14] MEDS: PHENYTOIN SODIUM EXTENDED 100 MG CAPSULE PO SCH ×2 (10:32→21:33)
[2019-01-14] MEDS: DOCUSATE SODIUM 100 MG CAPSULE PO SCH (10:32)
[2019-01-14] MEDS: APIXABAN 2.5 MG TABLET PO SCH ×2 (10:32→21:33)
[2019-01-14] MEDS: LEVETIRACETAM 500 MG TABLET PO SCH ×2 (10:32→21:31)
[2019-01-14] MEDS: POLYETHYLENE GLYCOL 3350 POWDER 17 GM/1 PACKET PO SCH (10:32)
[2019-01-14] MEDS: CEFEPIME HCL 2 GM in DEXTROSE 5%-WATER 50 ML IV SCH ×2 (10:33→21:32)
[2019-01-14] MEDS: LEVOFLOXACIN 750 MG/D5W RTU 750 MG/150 ML RTUPB IV SCH (10:33)
[2019-01-14] MEDS: LEVALBUTEROL HCL NEB 0.63 MG/3 ML AMPUL NEB PRN (16:01)
[2019-01-14] MEDS: ATORVASTATIN CALCIUM 20 MG TABLET PO SCH (21:31)
[2019-01-15] MEDS: NORMAL SALINE 1000 ML 1,000 ML IV PRN ×2 (06:50→18:55)
--- NOTE | 2019-01-15 10:27 | PDOC PROGRESS REPORT ---
Subjective Progress Note for:: 01/15/19 Subjective:: Patient is currently doing well he is denied any chest pain to than any shortness of breath No fever Patient still on IV antibiotic Reason For Visit: RLL PNEUMONIA, CKD Physical Exam Vital Signs: Temp Pulse Resp BP Pulse Ox 98.4 F 88 17 142/71 H 100 01/15/19 07:19 01/15/19 09:03 01/15/19 09:03 01/15/19 07:19 01/15/19 09:03 Intake & Output 01/14/19 01/15/19 01/16/19 06:59 06:59 06:59 Intake Total 2437 3173 Output Total 900 450 Balance 1537 2723 Weight 66 kg 66.7 kg General appearance: PRESENT: no acute distress, well-developed, well-nourished Head exam: PRESENT: atraumatic, normocephalic Eye exam: PRESENT: conjunctiva pink, EOMI, PERRLA. ABSENT: scleral icterus Ear exam: PRESENT: normal external ear exam Mouth exam: PRESENT: moist, tongue midline Neck exam: PRESENT: full ROM. ABSENT: carotid bruit, JVD, lymphadenopathy, thyromegaly Cardiovascular exam: PRESENT: RRR. ABSENT: diastolic murmur, rubs, systolic murmur Vascular exam: PRESENT: normal capillary refill GI/Abdominal exam: PRESENT: normal bowel sounds, soft. ABSENT: distended, guarding, mass, organolmegaly, rebound, tenderness Rectal exam: PRESENT: deferred Extremities exam: PRESENT: left AKA Neurological exam: PRESENT: alert, awake, oriented to person, oriented to place, oriented to time, oriented to situation, CN II-XII grossly intact. ABSENT: motor sensory deficit Psychiatric exam: PRESENT: appropriate affect, normal mood. ABSENT: homicidal ideation, suicidal ideation Skin exam: PRESENT: dry, intact, warm. ABSENT: cyanosis, rash Results Laboratory Results: 01/13/19 08:20 01/13/19 08:20 01/10/19 01/10/19 01/10/19 16:40 22:04 22:04 Creatine Kinase 80 CK-MB (CK-2) 0.55 Troponin I 0.065 0.059 NT-Pro-B Natriuret Pep 9330 H Assessment & Plan - Diagnosis (1) Chronic kidney disease, stage 3 Is this a current diagnosis for this admission?: Yes (2) Right lower lobe pneumonia Qualifiers: Pneumonia type: due to unspecified organism Qualified Code(s): J18.1 - Lobar pneumonia, unspecified organism Is this a current diagnosis for this admission?: Yes Plan: Continues IV antibiotic We will repeat the chest x-ray (3) History of CVA (cerebrovascular accident) Is this a current diagnosis for this admission?: Yes - Time Time Spent with patient: 15-24 minutes Medications reviewed and adjusted accordingly: Yes Anticipated discharge: SNF - Plan Summary Plan Summary: We will repeat the chest x-ray
[2019-01-15] MEDS: LEVETIRACETAM 500 MG TABLET PO SCH ×2 (10:36→21:48)
[2019-01-15] MEDS: PHENYTOIN SODIUM EXTENDED 100 MG CAPSULE PO SCH ×2 (10:36→21:48)
[2019-01-15] MEDS: FINASTERIDE 5 MG TABLET PO SCH (10:36)
[2019-01-15] MEDS: SENNOSIDES/DOCUSATE 8.6-50 MG 1 EACH TABLET PO SCH (10:37)
[2019-01-15] MEDS: CEFEPIME HCL 2 GM in DEXTROSE 5%-WATER 50 ML IV SCH ×2 (10:37→21:48)
[2019-01-15] MEDS: DOCUSATE SODIUM 100 MG CAPSULE PO SCH (10:37)
[2019-01-15] MEDS: DILTIAZEM HCL 240 MG CAPSULE.CR PO SCH (10:38)
[2019-01-15] MEDS: LEVOFLOXACIN 750 MG/D5W RTU 750 MG/150 ML RTUPB IV SCH (10:38)
[2019-01-15] MEDS: POLYETHYLENE GLYCOL 3350 POWDER 17 GM/1 PACKET PO SCH (10:38)
[2019-01-15] MEDS: APIXABAN 2.5 MG TABLET PO SCH ×2 (10:38→21:48)
--- NOTE | 2019-01-15 10:39 | RADIOLOGY REPORT (SQ) ---
EXAM DESCRIPTION: CHEST SINGLE VIEW COMPLETED DATE/TIME: 01/15/2019 10:28 am REASON FOR STUDY: crackles on right COMPARISON: 01/10/2019 EXAM PARAMETERS: NUMBER OF VIEWS: One view. TECHNIQUE: Single frontal radiographic view of the chest acquired. RADIATION DOSE: NA LIMITATIONS: None. FINDINGS: LUNGS AND PLEURA: Extensive right-sided opacity. Bilateral pleural effusions. No pneumot horax. MEDIASTINUM AND HILAR STRUCTURES: No masses. Contour normal. HEART AND VASCULAR STRUCTURES: Heart normal in size. Normal vasculature. BONES: No acute findings. HARDWARE: None in the chest. OTHER: No other significant finding. IMPRESSION: Extensive right-sided opacities increased over previous. Question aspiration complex. Bilateral pleural effusions. TECHNICAL DOCUMENTATION: JOB ID: [id number] [employer]- All Rights Reserved Reading location - IP/workstation name: [email or web address]
[2019-01-15] MEDS: LEVALBUTEROL HCL NEB 0.63 MG/3 ML AMPUL NEB PRN (17:12)
[2019-01-15] MEDS: ATORVASTATIN CALCIUM 20 MG TABLET PO SCH (21:48)
[2019-01-16] MEDS: NORMAL SALINE 1000 ML 1,000 ML IV PRN (05:12)
[2019-01-16] MEDS: DOCUSATE SODIUM 100 MG CAPSULE PO SCH (12:27)
[2019-01-16] MEDS: POLYETHYLENE GLYCOL 3350 POWDER 17 GM/1 PACKET PO SCH (12:27)
[2019-01-16] MEDS: LEVETIRACETAM 500 MG TABLET PO SCH ×2 (12:27→21:20)
[2019-01-16] MEDS: SENNOSIDES/DOCUSATE 8.6-50 MG 1 EACH TABLET PO SCH (12:27)
[2019-01-16] MEDS: FINASTERIDE 5 MG TABLET PO SCH (12:28)
[2019-01-16] MEDS: LEVOFLOXACIN 750 MG/D5W RTU 750 MG/150 ML RTUPB IV SCH (12:28)
[2019-01-16] MEDS: CEFEPIME HCL 2 GM in DEXTROSE 5%-WATER 50 ML IV SCH ×2 (12:32→21:24)
[2019-01-16] MEDS: PHENYTOIN SODIUM EXTENDED 100 MG CAPSULE PO SCH ×4 (12:33→22:18)
[2019-01-16] MEDS: DILTIAZEM HCL 240 MG CAPSULE.CR PO SCH (12:33)
[2019-01-16] MEDS: APIXABAN 2.5 MG TABLET PO SCH ×2 (12:34→21:23)
[2019-01-16] MEDS ORDERED: DIPHENHYDRAMINE HCL 50 MG/ML VIAL ONE (15:59)
[2019-01-16] MEDS ORDERED: TRAMADOL HCL 50 MG TABLET PO PRN (19:53)
[2019-01-16] MEDS ORDERED: ACETAMINOPHEN 325 MG TABLET PO PRN (19:53)
[2019-01-16] MEDS ORDERED: HYOSCYAMINE SULFATE 0.125 MG TABLET PO PRN (19:53)
[2019-01-16] MEDS ORDERED: FINASTERIDE 5 MG TABLET PO SCH (20:00)
[2019-01-16] MEDS ORDERED: (PENDING PHARMACY ID) (Mirabegron [Myrbetriq] 25 MG) PO SCH ×2 (20:00→21:00)
[2019-01-16] MEDS ORDERED: POLYETHYLENE GLYCOL 3350 POWDER 17 GM/1 PACKET PO SCH (20:00)
[2019-01-16] MEDS ORDERED: APIXABAN 2.5 MG TABLET PO SCH (20:00)
[2019-01-16] MEDS ORDERED: (PENDING PHARMACY ID) (Levetiracetam [Keppra] 1,000 MG) PO SCH (20:00)
[2019-01-16] MEDS ORDERED: (PENDING PHARMACY ID) (Diltiazem Hcl [Cartia Xt] 240 MG) PO SCH (20:00)
--- NOTE | 2019-01-16 20:00 | PDOC TRANSFER SUMMARY ---
General - Admit/Disc Date/PCP Admission Date/Primary Care Provider: 01/10/19 21:00 TOMY CROCKER MD Discharge Date: 01/17/19 - Discharge Diagnosis (1) Right lower lobe pneumonia Is this a current diagnosis for this admission?: Yes (2) Acute kidney injury Is this a current diagnosis for this admission?: Yes (3) Metabolic acidosis Is this a current diagnosis for this admission?: Yes (4) Chronic kidney disease, stage 3 Is this a current diagnosis for this admission?: Yes - Additional Information Prescriptions: Levofloxacin [Levaquin 750 mg Tablet] 750 mg PO DAILY #5 tablet Home Medications: Acetaminophen [Tylenol 325 mg Tablet] 650 mg PO Q6HP PRN 01/11/19 Apixaban [Eliquis 2.5 mg Tablet] 2.5 mg PO BID 01/11/19 Aripiprazole [Abilify 5 mg Tablet] 5 mg PO DAILY 01/11/19 Atorvastatin Calcium [Lipitor 20 mg Tablet] 20 mg PO QHS 01/11/19 Diltiazem HCl [Cartia Xt] 240 mg PO DAILY 01/11/19 Finasteride [Proscar 5 mg Tablet] 5 mg PO DAILY 01/11/19 Hyoscyamine Sulfate [Levsin 0.125 Tablet] 0.125 mg PO Q4HP PRN 01/11/19 Levetiracetam [Keppra] 1,000 mg PO Q12 01/11/19 Mirabegron [Myrbetriq] 25 mg PO DAILY 01/11/19 Montelukast Sodium [Singulair 10 mg Tablet] 10 mg PO QHS 01/11/19 Phenytoin Sodium Extended [Dilantin 100 mg Capsule.er] 100 mg PO Q12 01/11/19 Polyethylene Glycol 3350 [Miralax Powder 17 gm/Packet] 1 packet PO DAILY 01/11/19 Sertraline HCl [Zoloft 50 mg Tablet] 50 mg PO DAILY 01/11/19 Tamsulosin HCl [Flomax 0.4 mg Cap.sr] 0.4 mg PO QHS 01/11/19 Tramadol HCl [Ultram 50 mg Tablet] 50 mg PO Q8HP PRN 01/11/19 Levofloxacin [Levaquin 750 mg Tablet] 750 mg PO DAILY #5 tablet 01/16/19 History of Present Illness Admission Date/PCP: 01/10/19 21:00 TOMY CROCKER MD History of Present Illness: GRAYSON BURCH is a 73 year old male,He was transferred from assisted living facility to the emergency room for evaluation of fever, shortness of breath. In the emergency room he was found to have a low oxygen saturation also found was a low blood pressure, he was very confused. Chest x-ray showed right lower lobe pneumonia.History taking is difficult from this patient because he is lethargic and confused. In the emergency room he was found to have a temperature of 102.8 , he was also fluid resuscitated in the emergency room because of extremely low blood pressure and he was also tachypneic with increased work of breathing requiring noninvasive positive pressure ventilation, BiPAP when I saw him he was very confused difficult to obtain history I relied on the notes from the emergency room and also from his place of residence. But patient is well-known to me from previous encounter, he has a history of COPD still actively smoking history of CKD stage III history of atrial fibrillation on anticoagulation Hospital Course Hospital Course: Patient was admitted for the management of right lung pneumonia, treated with IV antibiotic cefepime and Levaquin he has chronic kidney disease stage III, there was superimposed acute kidney injury this was corrected with hydration ,felt to be prerenal Physical Exam Vital Signs: Temp Pulse Resp BP Pulse Ox 98.8 F 88 22 H 145/86 H 100 01/16/19 19:26 01/16/19 19:26 01/16/19 19:26 01/16/19 19:26 01/16/19 19:26 Intake & Output 01/15/19 01/16/19 01/17/19 06:59 06:59 06:59 Intake Total 3173 2568 680 Output Total 450 425 Balance 2723 2143 680 Weight 66.7 kg 66.1 kg General appearance: PRESENT: no acute distress Eye exam: PRESENT: PERRLA Respiratory exam: PRESENT: clear to auscultation kimberly Cardiovascular exam: PRESENT: irregular rhythm, +S1, +S2 GI/Abdominal exam: PRESENT: soft Results Laboratory Results: 01/13/19 08:20 01/13/19 08:20 01/10/19 18:48 Blood Blood Culture - Final NO GROWTH IN 5 DAYS 01/10/19 18:00 Blood Blood Culture - Final NO GROWTH IN 5 DAYS 01/10/19 01/10/19 01/10/19 16:40 22:04 22:04 Creatine Kinase 80 CK-MB (CK-2) 0.55 Troponin I 0.065 0.059 NT-Pro-B Natriuret Pep 9330 H Impressions: Chest X-Ray 01/15/19 00:00 IMPRESSION: Extensive right-sided opacities increased over previous. Question aspiration complex. Bilateral pleural effusions. Qualifiers - * PATIENT BEING DISCHARGED WITH ANY OF THE FOLLOWING DIAGNOSIS: No Acute Heart Failure Is this a Heart Failure Patient?: No
[2019-01-16 20:38] LABS: HEMATOCRIT 26.8 % (37.9-51.0); MEAN CORPUSCULAR HEMOGLOBIN 31.5 pg (27.0-33.4); MEAN CORPUSCULAR HGB CONC 33.7 g/dL (32.0-36.0); MEAN CORPUSCULAR VOLUME 94 fl (80-97); RED BLOOD COUNT 2.86 10^6/uL (4.35-5.55); RED CELL DISTRIBUTION WIDTH 14.4 % (11.5-14.0); WHITE BLOOD COUNT 6.9 10^3/uL (4.0-10.5)
[2019-01-16 21:00] LABS: ALANINE AMINOTRANSFERASE 19 U/L (21-72); ALBUMIN 2.5 g/dL (3.5-5.0); ALKALINE PHOSPHATASE 82 U/L (38-126); ANION GAP 8 (5-19); ASPARTATE AMINO TRANSFERASE 19 U/L (17-59); BILIRUBIN,DIRECT 0.5 mg/dL (0.0-0.4); BILIRUBIN,TOTAL 0.6 mg/dL (0.2-1.3); BLOOD UREA NITROGEN 27 mg/dL (7-20); CALCIUM 8.3 mg/dL (8.4-10.2); CARBON DIOXIDE 15 mmol/L (22-30); CHLORIDE 119 mmol/L (98-107); GLUCOSE 128 mg/dL (75-110); SODIUM 142.1 mmol/L (137-145); TOTAL PROTEIN 5.8 g/dL (6.3-8.2)
[2019-01-16 21:02] LABS: ABSOLUTE LYMPHOCYTES# (MANUAL) 1.1 10^3/uL (0.5-4.7); ABSOLUTE MONOCYTES # (MANUAL) 0.5 10^3/uL (0.1-1.4); ABSOLUTE NEUTROPHILS# (MANUAL) 5.2 10^3/uL (1.7-8.2); BAND NEUTROPHILS % (MANUAL) 2 % (3-5); BASOPHILS % (MANUAL) 0 % (0-2); EOSINOPHILS % (MANUAL) 1 % (0-6); LYMPHOCYTES % (MANUAL) 15 % (13-45); MONOCYTES % (MANUAL) 7 % (3-13); SEGMENTED NEUTROPHILS % (MAN) 74 % (42-78); TOTAL CELLS COUNTED 100
[2019-01-16 21:03] LABS: PLATELET CLUMPS PRESENT; PLATELET COMMENT ADEQUATE
[2019-01-16 21:04] LABS: BURR CELLS SLIGHT; HELMET CELLS SLIGHT; OVALOCYTES 1+
[2019-01-16 21:05] LABS: PLATELET COUNT 197 10^3/uL (150-450)
[2019-01-16] MEDS: ATORVASTATIN CALCIUM 20 MG TABLET PO SCH (21:19)
[2019-01-16] MEDS: SERTRALINE HCL 50 MG TABLET PO SCH (21:21)
[2019-01-16] MEDS: ARIPIPRAZOLE 5 MG TABLET PO SCH (21:27)
[2019-01-16] MEDS ORDERED: MONTELUKAST SODIUM 10 MG TABLET PO SCH (22:00)
[2019-01-16] MEDS ORDERED: LEVETIRACETAM 500 MG TABLET PO SCH (22:00)
[2019-01-16] MEDS ORDERED: TAMSULOSIN HCL 0.4 MG CAP.SR.24H PO SCH (22:00)
[2019-01-16] MEDS ORDERED: ATORVASTATIN CALCIUM 20 MG TABLET PO SCH (22:00)
[2019-01-17] MEDS ORDERED: DILTIAZEM HCL 240 MG CAPSULE.CR PO SCH (10:00)
[2019-01-17] MEDS: SENNOSIDES/DOCUSATE 8.6-50 MG 1 EACH TABLET PO SCH (12:36)
[2019-01-17] MEDS: DOCUSATE SODIUM 100 MG CAPSULE PO SCH (12:36)
[2019-01-17] MEDS: POLYETHYLENE GLYCOL 3350 POWDER 17 GM/1 PACKET PO SCH (12:36)
[2019-01-17] MEDS: FINASTERIDE 5 MG TABLET PO SCH (12:36)
[2019-01-17] MEDS: SERTRALINE HCL 50 MG TABLET PO SCH (12:36)
[2019-01-17] MEDS: PHENYTOIN SODIUM EXTENDED 100 MG CAPSULE PO SCH (12:37)
[2019-01-17] MEDS: LEVETIRACETAM 500 MG TABLET PO SCH (12:37)
[2019-01-17] MEDS: DILTIAZEM HCL 240 MG CAPSULE.CR PO SCH (12:37)
[2019-01-17] MEDS: ARIPIPRAZOLE 5 MG TABLET PO SCH (12:37)
[2019-01-17] MEDS: APIXABAN 2.5 MG TABLET PO SCH (12:38)
[2019-01-17] MEDS: CEFEPIME HCL 2 GM in DEXTROSE 5%-WATER 50 ML IV SCH (12:38)
[2019-01-17] MEDS: LEVOFLOXACIN 750 MG/D5W RTU 750 MG/150 ML RTUPB IV SCH (12:38)
[2019-01-17 16:14] VITALS: BP 143/82
== END 2019-01-17 20:50 | DRG 194 ==
LOC: ER 16:50 → EH 21:00 → 3S 22:37
PROVIDERS: ADMIT Internal Medicine; ATTEND Internal Medicine
DX: J18.1 Lobar pneumonia, unspecified organism (principal); N17.9 Acute kidney failure, unspecified; E87.2 Acidosis; I48.91 Unspecified atrial fibrillation; I73.9 Peripheral vascular disease, unspecified; J44.9 Chronic obstructive pulmonary disease, unspecified; N40.1 Benign prostatic hyperplasia with lower urinary tract symptoms; R35.0 Frequency of micturition; K21.9 Gastro-esophageal reflux disease without esophagitis; F31.9 Bipolar disorder, unspecified; N18.3 Chronic kidney disease, stage 3 (moderate); I12.9 Hypertensive chronic kidney disease with stage 1 through stage 4 chronic kidney disease, or unspecified chronic kidney disease; E11.22 Type 2 diabetes mellitus with diabetic chronic kidney disease; F17.210 Nicotine dependence, cigarettes, uncomplicated; Z89.612 Acquired absence of left leg above knee; Z79.01 Long term (current) use of anticoagulants; Z79.899 Other long term (current) drug therapy
CPT/HCPCS: 36415; 36600; 71045; 80053; 81001; 82550; 82553; 82803; 82962; 83036; 83605; 83880; 84484; 85025; 85610; 87040; 87086; 93005; 93010; 96365; 96366; 96367; 99285; J0456; J0692; J0696; J1644; J1956; J3490; J7030; J7060; J7614

== ENCOUNTER 2019-01-17 21:51 | Observation (INO) | payer MEDICARE, MEDICAID ==
--- NOTE | 2019-01-17 23:36 | ER Document Report ---
ED General - General Chief Complaint: Fever Stated Complaint: FEVER Time Seen by Provider: 01/17/19 22:16 Notes: Patient is a 73-year-old male who does not have any complaints. He was just discharged today to being treated for pneumonia. When he was presented to the assisted the assisted refused to accept him because the paramedics that he had a temp of 100.3. He said he had to come back to the hospital and therefore they brought him back to the ER. Currently patient says he feels well and has no concerns or complaints. Temperature is 99.7. Denies any chest pain. No difficulty breathing. Was discharged on Levaquin. He is a patient of Dr. Fitzgerald. TRAVEL OUTSIDE OF THE [place] IN LAST 30 DAYS: No - Related Data Allergies/Adverse Reactions: No Known Allergies Allergy (Verified 12/22/17 20:15) Past Medical History - Social History Smoking Status: Unknown if Ever Smoked Frequency of alcohol use: None Drug Abuse: None Family History: Reviewed & Not Pertinent Patient has suicidal ideation: No Patient has homicidal ideation: No - Past Medical History Cardiac Medical History: Reports: Hx Atrial Fibrillation, Hx Hypertension, Hx Peripheral Vascular Disease Denies: Hx Heart Attack Pulmonary Medical History: Reports: Hx Asthma, Hx COPD Denies: Hx Tuberculosis Neurological Medical History: Reports: Hx Cerebrovascular Accident - with left sided weakness. medications: Warfarin, Dilantin, Flomax, Hx Seizures Endocrine Medical History: Reports: Hx Diabetes Mellitus Type 2 Renal/ Medical History: Reports: Hx Benign Prostatic Hyperplasia, Hx End Stage Renal Disease. Denies: Hx Peritoneal Dialysis GI Medical History: Reports: Hx Gastroesophageal Reflux Disease. Denies: Hx Hepatitis, Hx Hiatal Hernia, Hx Ulcer Musculoskeletal Medical History: Reports Hx Arthritis - osteoarthritis, Reports Hx Musculoskeletal Deformity, Reports Hx Musculoskeletal Trauma Psychiatric Medical History: Reports: Hx Bipolar Disorder, Hx Depression - anxiety Infectious Medical History: Denies: Hx Hepatitis Past Surgical History: Reports: Hx Cholecystectomy, Hx Orthopedic Surgery - bilat Total Knee Replacement, left AKA. Denies: Hx Open Heart Surgery, Hx Pacemaker - Immunizations Immunizations up to date: Yes Hx Diphtheria, Pertussis, Tetanus Vaccination: No Hx Pneumococcal Vaccination: 09/13/13 Review of Systems - Review of Systems Notes: My Normal Review Basic REVIEW OF SYSTEMS: CONSTITUTIONAL : Temp of 100.3 in the ambulance. CARDIOVASCULAR: Denies chest pain. RESPIRATORY: Recent pneumonia GASTROINTESTINAL: Denies abdominal pain. Denies nausea, vomiting, or diarrhea. MUSCULOSKELETAL: Denies neck or back pain or joint pain or swelling. SKIN: Denies rash or skin lesions. NEUROLOGICAL: Denies altered mental status or loss of consciousness. Denies headache. Denies weakness or paralysis or loss of use of either side. Denies problems with gait or speech. Denies sensory or motor loss. ALL OTHER SYSTEMS REVIEWED AND NEGATIVE. Physical Exam - Vital signs Vitals: Resp 24 H 01/17/19 22:13 - Notes Notes: General Appearance: Well nourished, alert, cooperative, no acute distress, no obvious discomfort. Well-appearing. Vitals: reviewed, See vital signs table. Head: no swelling or tenderness to the head Eyes: PERRL, EOMI, Conjuctiva clear Mouth: No decreasd moisture Lungs: No wheezing, No rales, No rhonci, No accessory muscle use, good air exchange bilaterally. Heart: Normal rate, Regular rythm, No murmur, no rub Abdomen: Normal BS, soft, No rigidity, No abdominal tenderness, No guarding, no rebound, no abdominal masses, no organomegaly Extremities: strength 5/5 in all extremities, good pulses in all extremities, no swelling or tenderness in the extremities, no edema. Skin: warm, dry, appropriate color, no rash Neuro: speech clear, oriented x 3, normal affect, responds appropriately to ques tions. Course - Re-evaluation Re-evalutation: 01/18/19 00:44 I discussed the case with Dr. Fitzgerald he said he is agreeable to admit the patient for observation. Patient currently clinically looks well. Chest x-ray continues to show pneumonia. Patient is not due for next dose Levaquin until morning time. Dictation of this chart was performed using voice recognition software; therefore, there may be some unintended grammatical errors. 01/18/19 00:58 - Vital Signs Vital signs: Temp Pulse Resp BP Pulse Ox 99.0 F 139 H 21 H 172/90 H 97 01/18/19 04:57 01/18/19 04:57 01/18/19 04:57 01/18/19 04:57 01/18/19 04:57 - Laboratory Result Diagrams: 01/18/19 00:08 01/18/19 00:08 Laboratory results interpreted by me: 01/18/19 01/18/19 00:08 00:08 RBC 2.86 L Hgb 9.0 L Hct 26.8 L RDW 14.2 H Band Neutrophils % 1 L Chloride 117 H Carbon Dioxide 15 L BUN 25 H Discharge - Discharge Clinical Impression: Pneumonia Qualifiers: Pneumonia type: due to unspecified organism Laterality: right Lung location: lower lobe of lung Qualified Code(s): J18.1 - Lobar pneumonia, unspecified organism Fever Qualifiers: Fever type: unspecified Qualified Code(s): R50.9 - Fever, unspecified Condition: Stable Disposition: ADMITTED OBSERVATION [facility]: Telemetry
--- NOTE | 2019-01-18 00:16 | RADIOLOGY REPORT (SQ) ---
EXAM DESCRIPTION: [facility]: XR CHEST 1 VIEW CLINICAL HISTORY: 73 years Male, pneumonia COMPARISON: 01/15/2019 FINDINGS: There is a persistent right lower lobe infiltrate with small right pleural effusion, not significant change after accounting for differences in positioning. No pneumothorax. Left lung remains clear. Mild aortic calcification is again noted. Mediastinum is unchanged. Bony structures are unremarkable. IMPRESSION: 1. Unchanged right lower lobe infiltrate with small right pleural effusion. No new findings.
[2019-01-18 00:22] LABS: HEMATOCRIT 26.8 % (37.9-51.0); MEAN CORPUSCULAR HEMOGLOBIN 31.3 pg (27.0-33.4); MEAN CORPUSCULAR HGB CONC 33.4 g/dL (32.0-36.0); MEAN CORPUSCULAR VOLUME 94 fl (80-97); RED BLOOD COUNT 2.86 10^6/uL (4.35-5.55); RED CELL DISTRIBUTION WIDTH 14.2 % (11.5-14.0); WHITE BLOOD COUNT 9.1 10^3/uL (4.0-10.5)
[2019-01-18 00:39] LABS: ABSOLUTE LYMPHOCYTES# (MANUAL) 1.4 10^3/uL (0.5-4.7); ABSOLUTE MONOCYTES # (MANUAL) 0.5 10^3/uL (0.1-1.4); ABSOLUTE NEUTROPHILS# (MANUAL) 7.2 10^3/uL (1.7-8.2); BAND NEUTROPHILS % (MANUAL) 1 % (3-5); BASOPHILS % (MANUAL) 0 % (0-2); EOSINOPHILS % (MANUAL) 0 % (0-6); LYMPHOCYTES % (MANUAL) 14 % (13-45); MONOCYTES % (MANUAL) 6 % (3-13); NUCLEATED RED BLOOD CELLS 1 /100 WBC (0); SEGMENTED NEUTROPHILS % (MAN) 78 % (42-78); TOTAL CELLS COUNTED 100
[2019-01-18 00:41] LABS: ANION GAP 10 (5-19); BLOOD UREA NITROGEN 25 mg/dL (7-20); CALCIUM 8.5 mg/dL (8.4-10.2); CARBON DIOXIDE 15 mmol/L (22-30); CHLORIDE 117 mmol/L (98-107); GLUCOSE 92 mg/dL (75-110); POTASSIUM 4.8 mmol/L (3.6-5.0); SODIUM 141.9 mmol/L (137-145)
[2019-01-18 00:42] LABS: HYPOCHROMASIA 1+; OVALOCYTES 2+; PLATELET CLUMPS PRESENT; PLATELET COMMENT ADEQUATE; SCHISTOCYTES SLIGHT
[2019-01-18 00:43] LABS: PLATELET COUNT 215 10^3/uL (150-450)
[2019-01-18] MEDS ORDERED: ACETAMINOPHEN 325 MG TABLET PO PRN (09:25)
[2019-01-18] MEDS ORDERED: (PENDING PHARMACY ID) (Diltiazem Hcl [Cartia Xt] 240 MG) PO SCH (10:00)
[2019-01-18] MEDS ORDERED: (PENDING PHARMACY ID) (Levetiracetam [Keppra] 1,000 MG) PO SCH (10:00)
[2019-01-18] MEDS: LEVETIRACETAM 500 MG TABLET PO SCH ×3 (10:26→21:17)
[2019-01-18] MEDS: ARIPIPRAZOLE 5 MG TABLET PO SCH ×2 (10:27→12:25)
[2019-01-18] MEDS: FINASTERIDE 5 MG TABLET PO SCH ×2 (10:27→12:26)
[2019-01-18] MEDS: DILTIAZEM HCL 240 MG CAPSULE.CR PO SCH (10:29)
[2019-01-18] MEDS: PHENYTOIN SODIUM EXTENDED 100 MG CAPSULE PO SCH ×2 (10:29→21:20)
[2019-01-18] MEDS: APIXABAN 2.5 MG TABLET PO SCH ×3 (10:29→18:48)
[2019-01-18] MEDS ORDERED: DEXTROSE 50%-WATER 25 GM/50 ML DISP.SYRIN IV ONE (11:26)
[2019-01-18] MEDS ORDERED: DEXTROSE 50%-WATER SYRINGE 25 GM/50 ML DOSE IV PRN (11:30)
[2019-01-18] MEDS ORDERED: DEXTROSE 40% GEL 15 GM TUBE X 2 PO PRN (11:30)
[2019-01-18] MEDS ORDERED: DEXTROSE 50%-WATER SYRINGE 12.5 GM/25 ML DOSE IV PRN (11:30)
[2019-01-18] MEDS ORDERED: GLUCAGON,HUMAN RECOMB 1 MG INJ IM PRN (11:30)
[2019-01-18] MEDS ORDERED: DEXTROSE 40% GEL 15 GM TUBE PO PRN (11:30)
[2019-01-18] MEDS ORDERED: HYOSCYAMINE SULFATE 0.125 MG TABLET PO PRN (13:47)
[2019-01-18] MEDS ORDERED: (PENDING PHARMACY ID) (Mirabegron [Myrbetriq] 25 MG) PO SCH (14:00)
--- NOTE | 2019-01-18 14:01 | PDOC H&P ---
History of Present Illness Admission Date/PCP: 01/18/19 00:48 OTMY CROCKER MD History of Present Illness: GRAYSON BURCH is a 73 year old male, patient was discharged to assisted iving facility at [facility], he was transferred by the emergency room because he supposedly of low-grade temperature, 100 degree Fahrenheit. He was admitted for the management of pneumonia, it was felt that he has optimized inpatient care. In the emergency room he was evaluated, there was no acute change found on evaluation in the ER. I do not see an indication for inpatient care at this time, patient be discharged to a alf home for rehabilitation and physical therapy. [facility] is not equipped to take care of this patient at this time Past Medical History Cardiac Medical History: Reports: Atrial Fibrillation, Hypertension, Peripheral Vascular Disease Pulmonary Medical History: Reports: Asthma, Chronic Obstructive Pulmonary Disease (COPD) Neurological Medical History: Reports: Seizures Endocrine Medical History: Reports: Diabetes Mellitus Type 2 GI Medical History: Reports: Gastroesophageal Reflux Disease Musculoskeltal Medical History: Reports: Arthritis - osteoarthritis Psychiatric Medical History: Reports: Bipolar Disorder, Depression - anxiety Hematology: Reports: Anemia Past Surgical History Past Surgical History: Reports: Cholecystectomy, Orthopedic Surgery - bilat Total Knee Replacement, left AKA Social History Smoking Status: Current Every Day Smoker Frequency of Alcohol Use: None Hx Recreational Drug Use: No Drugs: None Hx Prescription Drug Abuse: No Family History Family History: Reviewed & Not Pertinent Parental Family History Reviewed: Yes Children Family History Reviewed: Yes Sibling(s) Family History Reviewed.: Yes Medication/Allergy Home Medications: Acetaminophen [Tylenol 325 mg Tablet] 650 mg PO Q6HP PRN 01/11/19 Apixaban [Eliquis 2.5 mg Tablet] 2.5 mg PO BID 01/11/19 Aripiprazole [Abilify 5 mg Tablet] 5 mg PO DAILY 01/11/19 Atorvastatin Calcium [Lipitor 20 mg Tablet] 20 mg PO QHS 01/11/19 Diltiazem HCl [Cartia Xt] 240 mg PO DAILY 01/11/19 Finasteride [Proscar 5 mg Tablet] 5 mg PO DAILY 01/11/19 Hyoscyamine Sulfate [Levsin 0.125 Tablet] 0.125 mg PO Q4HP PRN 01/11/19 Levetiracetam [Keppra] 1,000 mg PO Q12 01/11/19 Mirabegron [Myrbetriq] 25 mg PO DAILY 01/11/19 Montelukast Sodium [Singulair 10 mg Tablet] 10 mg PO QHS 01/11/19 Phenytoin Sodium Extended [Dilantin 100 mg Capsule.er] 100 mg PO Q12 01/11/19 Polyethylene Glycol 3350 [Miralax Powder 17 gm/Packet] 1 packet PO DAILY 01/11/19 Sertraline HCl [Zoloft 50 mg Tablet] 50 mg PO DAILY 01/11/19 Tamsulosin HCl [Flomax 0.4 mg Cap.sr] 0.4 mg PO QHS 01/11/19 Tramadol HCl [Ultram 50 mg Tablet] 50 mg PO Q8HP PRN 01/11/19 Levofloxacin [Levaquin 750 mg Tablet] 750 mg PO DAILY #5 tablet MDD DID NOT START YET 01/16/19 Allergies/Adverse Reactions: No Known Allergies Allergy (Verified 12/22/17 20:15) Review of Systems Constitutional: ABSENT: chills, fever(s), headache(s), weight gain, weight loss Eyes: ABSENT: visual disturbances Ears: ABSENT: hearing changes Cardiovascular: ABSENT: chest pain, dyspnea on exertion, edema, orthropnea, palpitations Respiratory: ABSENT: cough, hemoptysis Gastrointestinal: ABSENT: abdominal pain, constipation, diarrhea, hematemesis, hematochezia, nausea, vomiting Genitourinary: ABSENT: dysuria, hematuria Musculoskeletal: ABSENT: joint swelling Integumentary: ABSENT: rash, wounds Neurological: ABSENT: abnormal gait, abnormal speech, confusion, dizziness, focal weakness, syncope Psychiatric: ABSENT: anxiety, depression, homidical ideation, suicidal ideation Endocrine: ABSENT: cold intolerance, heat intolerance, menstrual abnormalities, polydipsia, polyuria Hematologic/Lymphatic: ABSENT: easy bleeding, easy bruising, lymphadenopathy Physical Exam Vital Signs: Temp Pulse Resp BP Pulse Ox 97.9 F 59 L 18 163/107 H 90 L 01/18/19 08:36 01/18/19 08:36 01/18/19 08:36 01/18/19 08:36 01/18/19 08:36 Intake & Output 01/17/19 01/18/19 01/19/19 06:59 06:59 06:59 Output Total 0 Balance 0 Weight 64.4 kg General appearance: PRESENT: cooperative Head exam: PRESENT: atraumatic, normocephalic Eye exam: PRESENT: PERRLA Ear exam: PRESENT: normal external ear exam Mouth exam: PRESENT: moist, tongue midline Neck exam: PRESENT: full ROM Cardiovascular exam: PRESENT: RRR GI/Abdominal exam: PRESENT: normal bowel sounds, soft Rectal exam: PRESENT: deferred Neurological exam: PRESENT: alert Psychiatric exam: PRESENT: appropriate affect, normal mood Skin exam: PRESENT: dry, intact, warm Results Laboratory Results: 01/18/19 00:08 01/18/19 00:08 01/18/19 01/18/19 00:08 00:08 WBC 9.1 RBC 2.86 L Hgb 9.0 L Hct 26.8 L MCV 94 MCH 31.3 MCHC 33.4 RDW 14.2 H Plt Count 215 Seg Neutrophils % Not Reportable Lymphocytes % Not Reportable Monocytes % Not Reportable Eosinophils % Not Reportable Basophils % Not Reportable Absolute Neutrophils Not Reportable Absolute Lymphocytes Not Reportable Absolute Monocytes Not Reportable Absolute Eosinophils Not Reportable Absolute Basophils Not Reportable Sodium 141.9 Potassium 4.8 Chloride 117 H Carbon Dioxide 15 L Anion Gap 10 BUN 25 H Creatinine 1.15 Est GFR ( Amer) > 60 Est GFR (Non-Af Amer) > 60 Glucose 92 Calcium 8.5 Impressions: Chest X-Ray 01/17/19 23:32 IMPRESSION: 1. Unchanged right lower lobe infiltrate with small right pleural effusion. No new findings. Assessment & Plan - Diagnosis (1) Chronic atrial fibrillation Is this a current diagnosis for this admission?: Yes (2) Right lower lobe pneumonia Qualifiers: Pneumonia type: due to unspecified organism Qualified Code(s): J18.1 - Lobar pneumonia, unspecified organism Is this a current diagnosis for this admission?: Yes
--- NOTE | 2019-01-18 14:14 | PDOC TRANSFER SUMMARY ---
General - Admit/Disc Date/PCP Admission Date/Primary Care Provider: 01/18/19 00:48 TOMY CROCKER MD Discharge Date: 01/18/19 - Discharge Diagnosis (1) Chronic atrial fibrillation Is this a current diagnosis for this admission?: Yes (2) Right lower lobe pneumonia Is this a current diagnosis for this admission?: Yes - Additional Information Home Medications: Acetaminophen [Tylenol 325 mg Tablet] 650 mg PO Q6HP PRN 01/11/19 Apixaban [Eliquis 2.5 mg Tablet] 2.5 mg PO BID 01/11/19 Aripiprazole [Abilify 5 mg Tablet] 5 mg PO DAILY 01/11/19 Atorvastatin Calcium [Lipitor 20 mg Tablet] 20 mg PO QHS 01/11/19 Diltiazem HCl [Cartia Xt] 240 mg PO DAILY 01/11/19 Finasteride [Proscar 5 mg Tablet] 5 mg PO DAILY 01/11/19 Hyoscyamine Sulfate [Levsin 0.125 Tablet] 0.125 mg PO Q4HP PRN 01/11/19 Levetiracetam [Keppra] 1,000 mg PO Q12 01/11/19 Mirabegron [Myrbetriq] 25 mg PO DAILY 01/11/19 Montelukast Sodium [Singulair 10 mg Tablet] 10 mg PO QHS 01/11/19 Phenytoin Sodium Extended [Dilantin 100 mg Capsule.er] 100 mg PO Q12 01/11/19 Polyethylene Glycol 3350 [Miralax Powder 17 gm/Packet] 1 packet PO DAILY 01/11/19 Sertraline HCl [Zoloft 50 mg Tablet] 50 mg PO DAILY 01/11/19 Tamsulosin HCl [Flomax 0.4 mg Cap.sr] 0.4 mg PO QHS 01/11/19 Tramadol HCl [Ultram 50 mg Tablet] 50 mg PO Q8HP PRN 01/11/19 Levofloxacin [Levaquin 750 mg Tablet] 750 mg PO DAILY #5 tablet MDD DID NOT START YET 01/16/19 History of Present Illness Admission Date/PCP: 01/18/19 00:48 TOMY CROCKER MD History of Present Illness: GRAYSON BURCH is a 73 year old male, patient was discharged to assisted living facility at [facility], he was transferred by the emergency room because he supposedly of low-grade temperature, 100 degree Fahrenheit. He was admitted for the management of pneumonia, it was felt that he has optimized inpatient care. In the emergency room he was evaluated, there was no acute change found on evaluation in the ER. I do not see an indication for inpatient care at this time, patient be discharged to a [facility] for rehabilitation and physical therapy. [facility] is not equipped to take care of this patient at this time Hospital Course Hospital Course: Patient was discharged from this hospital yesterday, he was admitted initially for the management of pneumonia, see my original transfer summary for details, I do not see indication for inpatient care at this time, he will be transferred to a [facility] home for rehab Physical Exam Vital Signs: Temp Pulse Resp BP Pulse Ox 97.9 F 59 L 18 163/107 H 90 L 01/18/19 08:36 01/18/19 08:36 01/18/19 08:36 01/18/19 08:36 01/18/19 08:36 Intake & Output 01/17/19 01/18/19 01/19/19 06:59 06:59 06:59 Output Total 0 Balance 0 Weight 64.4 kg General appearance: PRESENT: no acute distress Eye exam: PRESENT: PERRLA Respiratory exam: PRESENT: clear to auscultation kimberly Cardiovascular exam: PRESENT: +S1, +S2 Neurological exam: PRESENT: alert Results Laboratory Results: 01/18/19 00:08 01/18/19 00:08 01/18/19 01/18/19 00:08 00:08 WBC 9.1 RBC 2.86 L Hgb 9.0 L Hct 26.8 L MCV 94 MCH 31.3 MCHC 33.4 RDW 14.2 H Plt Count 215 Seg Neutrophils % Not Reportable Lymphocytes % Not Reportable Monocytes % Not Reportable Eosinophils % Not Reportable Basophils % Not Reportable Absolute Neutrophils Not Reportable Absolute Lymphocytes Not Reportable Absolute Monocytes Not Reportable Absolute Eosinophils Not Reportable Absolute Basophils Not Reportable Sodium 141.9 Potassium 4.8 Chloride 117 H Carbon Dioxide 15 L Anion Gap 10 BUN 25 H Creatinine 1.15 Est GFR ( Amer) > 60 Est GFR (Non-Af Amer) > 60 Glucose 92 Calcium 8.5 Impressions: Chest X-Ray 01/17/19 23:32 IMPRESSION: 1. Unchanged right lower lobe infiltrate with small right pleural effusion. No new findings. Qualifiers - * PATIENT BEING DISCHARGED WITH ANY OF THE FOLLOWING DIAGNOSIS: No Acute Heart Failure Is this a Heart Failure Patient?: No
[2019-01-18] MEDS: POLYETHYLENE GLYCOL 3350 POWDER 17 GM/1 PACKET PO SCH (18:42)
[2019-01-18] MEDS: INSULIN LISPRO 100 UNIT/ML 3 ML VIAL SUBCUT SCH ×2 (18:44→23:02)
[2019-01-18] MEDS: LEVOFLOXACIN 750 MG TABLET PO SCH (18:48)
[2019-01-18] MEDS: SERTRALINE HCL 50 MG TABLET PO SCH (18:48)
[2019-01-18] MEDS: TRAMADOL HCL 50 MG TABLET PO PRN (21:18)
[2019-01-18] MEDS ORDERED: ATORVASTATIN CALCIUM 20 MG TABLET PO SCH (22:00)
[2019-01-18] MEDS ORDERED: TAMSULOSIN HCL 0.4 MG CAP.SR.24H PO SCH (22:00)
[2019-01-18] MEDS ORDERED: MONTELUKAST SODIUM 10 MG TABLET PO SCH (22:00)
[2019-01-19] MEDS: TRAMADOL HCL 50 MG TABLET PO PRN (06:23)
[2019-01-19] MEDS: INSULIN LISPRO 100 UNIT/ML 3 ML VIAL SUBCUT SCH ×2 (08:16→16:04)
[2019-01-19] MEDS: PHENYTOIN SODIUM EXTENDED 100 MG CAPSULE PO SCH (09:49)
[2019-01-19] MEDS: LEVOFLOXACIN 750 MG TABLET PO SCH (09:49)
[2019-01-19] MEDS: DILTIAZEM HCL 240 MG CAPSULE.CR PO SCH (09:49)
[2019-01-19] MEDS: FINASTERIDE 5 MG TABLET PO SCH (09:49)
--- NOTE | 2019-01-19 09:49 | ST Inp Modified Barium Swallow ---
Medical Diagnosis - Medical Diagnoses Medical Diagnosis Description & ICD-10 Code(s): Right Lower Lobe Pneumonia, dysphagia R13.10 ST Inpatient MBS - General Date: 01/19/19 Date of Onset: 01/18/19 - admit date - History History Obtained From: Other - EMR -: Medical - per patient EMR :patient admitted 01/18/19 with low grade fever. Patient's nurse noted that the patient had difficulty taking medications by mouth, administered in pudding. Speech therapy evaluated this patient at a previous admissions. On 01/16/19, a bedside swallowing evaluation revealed no overt signs of aspiration. A MBSS was recommended at that time should swallowing concerns persist. Medications: Medications Reviewed Allergies: No known allergies - Subjective Current Nutritional Means: PO Current PO Diet: Regular Current Symptoms: Pneumonia, other - difficulty with pills Pain: Patient reports, 0/5 - Objective Assessment: Upright, Left Lateral - Food Trials Food Trials Used: Thin liquids, Pureed, Regular The Patient: Required Assist, via spoon, via straw - Assessment Labial Function: Within Normal Limits Lingual Function: Within Normal Limits Mandibular Function: Within Normal Limits Dentition: Edentulous Velo-Pharyngeal Function: Unremarkable Laryngeal Function: clear voicing - Pharyngeal Stage Initiation of Pharyngeal Stage: Delayed - triggered at pyriform for liquids. Up to 6 second delay with pudding trials. Decreased Laryngeal Elevation: No Reduced Velo-Pharyngeal Closure: no Reduced Pressure Generation: Yes - mild Reduced Tongue Base Retraction: No Pre-Swallowing Pooling in Valleculae: Significant Pre-Swallowing Pooling in Pyriforms: Significant Reduced Thyro-Hyiod Approximation: No Reduced Epiglottic Excursion: No Reduced Pharyngeal Peristalsis: No Multiple Swallows With: Cleared w/ Liquid Assist Post Swallow Residuals in Valleculae: Mild Post Swallow Residuals in Pyriforms: Mild - Impression/Summary Laryngeal Penetration: Yes, Deep, during swallow - with thin liquids only. Penetration never reached below the level of the vocal folds. Multiple straw sips of liquid administered to ensure no aspiration. Tracheal Aspiration: no Compensatory Strategies: Recommend liquid wash Patient Presents With: Pharyngeal stage dysph., Mild-Moderate Risk of Aspiration: Mild Risk Due To: Mild risk of aspiration due to delay in swallow reflex and mild pharyngeal residue. - Recommendations Solid Diet Recommendations: Mechanical Soft - due to dentition Liquid Diet Recommendations: Thin Strict Aspitarion Precautions: Yes Dysphagia Therapy with HOOP CUTTER: No Recommended Techniques: Fully Upright During Meal, Med Crushed in Applesauce, Alternate Bites/Sips Supervision: requires assistance - Time Total Time: 25 Total Timed Minutes: 25
[2019-01-19] MEDS: LEVETIRACETAM 500 MG TABLET PO SCH (09:50)
[2019-01-19] MEDS: POLYETHYLENE GLYCOL 3350 POWDER 17 GM/1 PACKET PO SCH (09:50)
[2019-01-19] MEDS: ARIPIPRAZOLE 5 MG TABLET PO SCH (09:50)
[2019-01-19] MEDS: SERTRALINE HCL 50 MG TABLET PO SCH (09:50)
[2019-01-19] MEDS: APIXABAN 2.5 MG TABLET PO SCH ×2 (09:50→18:54)
--- NOTE | 2019-01-19 11:26 | RADIOLOGY REPORT (SQ) ---
EXAM DESCRIPTION: VIRAL SWALLOW COMPLETED DATE/TIME: 01/19/2019 9:46 am REASON FOR STUDY: trouble swallowing COMPARISON: None. TECHNIQUE: Videofluoroscopic swallowing examination was performed in conjunction with speech patholo gy. Videofluoroscopic imaging was obtained and reviewed and these are the findings: RADIATION DOSE: Fluoro time 3.3 minutes 1 images saved to PACS. LIMITATIONS: None FINDINGS: The patient was brought into the fluoro room and placed upright on a modified barium swall ow chair. The patient was then given multiple consistencies mixed with barium to swallow under live fluoroscopic video guidance. According to the Speech Pathologist there was deep laryngeal penetratio n with thin barium, but no aspiration seen. All other consistencies were swallowed without incident. Please refer to the speech pathology report for further details. IMPRESSION: DEEP LARYNGEAL PENETRATION WITH THIN BARIUM, NO ASPIRATION IDENTIFIED. PLEASE SEE SPEECH PATHOLOGIST REPORT FOR OTHER FINDINGS AND RECOMMENDATIONS. COMMENT: None Quality ID [id number]: Final reports for procedures using fluoroscopy that document radiation exposure geri wallace, or exposure time and number of fluorographic images (if radiation exposure indices are not avail able) TECHNICAL DOCUMENTATION: JOB ID: [id number] August- All Rights Reserved Reading location - IP/workstation name: [email or web address]
[2019-01-19 16:44] VITALS: BP 123/62
== END 2019-01-19 18:35 ==
LOC: ER 21:51 → UNDOADMOB 01-18 00:48 → EH 01-18 00:48 → 3S 01-18 04:50 → EH 01-18 04:50
PROVIDERS: ADMIT Internal Medicine; ATTEND Internal Medicine
DX: J18.1 Lobar pneumonia, unspecified organism (principal); I48.2 Chronic atrial fibrillation; J44.9 Chronic obstructive pulmonary disease, unspecified; I10 Essential (primary) hypertension; E11.9 Type 2 diabetes mellitus without complications; K21.9 Gastro-esophageal reflux disease without esophagitis; M19.90 Unspecified osteoarthritis, unspecified site; I73.9 Peripheral vascular disease, unspecified; F31.9 Bipolar disorder, unspecified; F41.9 Anxiety disorder, unspecified; Z79.899 Other long term (current) drug therapy; Z90.49 Acquired absence of other specified parts of digestive tract; Z96.653 Presence of artificial knee joint, bilateral; F17.200 Nicotine dependence, unspecified, uncomplicated
CPT/HCPCS: 99284; 36415; 82962 ×2; 85025; 80048; 71045; 74230; 92611; J3490; A9270 ×18